=== PATIENT | female | born 1995 | race Caucasian/White ===

== ENCOUNTER 2018-05-13 19:54 | Emergency (ER) | payer MEDICAID, SELFPAY ==
[2018-05-13 20:00] VITALS: BP 114/71; PULSE 91; RESP 16; TEMP 36.8; O2SAT 99
--- NOTE | 2018-05-13 20:20 | ED.GENADUL_ITS ---
Disposition Clinical Impression: Sore throat Disposition: HOME Condition: Good Instructions: Pharyngitis (ED) Additional Instructions: follow up with your primary care provider this week if you are not improving if you have inability to swallow liquids, difficulty breathing or severe worsening of pain return to the emergency department Medical Decision Making - Lab Data POC Strep Test-SEGUNDO(Rapid) Start: 05/13/18 20: 05 Freq: .Rapid Strep Test Status: Active Document 05/13/18 20:11 BS (Rec: 05/13/18 20:11 BS [email or web address]) Strep test-SEGUNDO(Rapid)-POC POC-Strep test-SEGUNDO (Rapid) Negative - Medical Decision Making pt here with sore throat and mild redness of left tonsil, suspect pharyngitis. Her strep test is negative so likely viral. Do not feel abx indicated at this time. 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 Advised f/u with pcp if not improving and return precautions given - Differential Diagnosis viral vs bacterial pharyngitis History of Present Illness - General Chief complaint: Sorethroat Stated complaint: SORE THROAT Time Seen by Provider: 05/13/18 20:09 Source: patient Mode of arrival: ambulatory Limitations: no limitations - History of Present Illness Initial comments: 22 yo female who is currently comes in with cc of sore throat. She states it started with sore throat yesterday and continued today so came here. She has a red left tonsil otherwise midline uvula, no pain over hyoid or restricted neck movements or changes in voice MD Complaint: sore throat Onset/Timin -: days(s) Consistency: other (worsening) Improves with: none Worsens with: none - Related Data Lfc503/FA/Omega3/Dha/Fish Oil [ Gummies] 1 tab PO DAILY 08/04/17 Ondansetron [Zofran] 8 mg PO Q8H PRN #12 tab 04/25/18 Allergies Allergy/AdvReac Type Severity Reaction Status Date / Time codeine AdvReac Intermediate very sick Unverified 05/13/18 20:06 Review of Systems Constitutional: denies: fever ENT: throat pain Respiratory: denies: shortness of breath Cardiovascular: denies: chest pain Comment: All other systems reviewed and negative Past Medical History - Past Medical History Medical history: no medical history uti Surgical history: no surgical history - Social History Alcohol use: none Drug use: none General Exam - General Limitations: no limitations General appearance: alert, in no apparent distress - Head Head exam: Present: atraumatic - Eye Eye exam: Present: normal apperance - ENT ENT exam: Present: mucous membranes moist, other (see hpi) - Neck Neck exam: Present: normal inspection, full ROM. Absent: meningismus - Respiratory Respiratory exam: Absent: respiratory distress - Cardiovascular Cardiovascular Exam: Present: regular rate - Neurological Exam Neurological exam: Present: alert, oriented X3, normal gait - Psychiatric Psychiatric exam: Present: normal affect - Skin Skin exam: Present: warm Course Vital Signs - 24 hr 08/05/18 20:00 Temperature 98.2 F Pulse 91 H Respiratory 16 Rate Blood Pressure 114/71 Pulse Oximetry 99
[2018-05-13 21:04] VITALS: BP 114/71; PULSE 91; RESP 16; TEMP 36.8; O2SAT 99
== END 2018-05-13 20:40 | disposition home or self-care (01) ==
PROVIDERS: Emergency Provider Emergency Medicine; PCP Family Medicine
DX: J02.9 Acute pharyngitis, unspecified (principal); Z33.1 Pregnant state, incidental; Z3A.00 Weeks of gestation of pregnancy not specified
CPT/HCPCS: 87880; 99282

== ENCOUNTER → 2018-05-25 16:49 | Outpatient (REF) | payer MEDICAID, SELFPAY | LOC: LBN 16:49 | PROVIDERS: PCP Family Medicine; Visit Provider Advanced Practice Midwife | DX: N76.0 Acute vaginitis (principal) | CPT/HCPCS: 87480; 87510; 87660 ==

== ENCOUNTER 2018-06-20 15:42 | Observation (INO) | payer MEDICAID, SELFPAY ==
[2018-06-20 16:05] VITALS: BP 119/74; PULSE 120; RESP 20; TEMP 37.1; O2SAT 99
[2018-06-20] MEDS: Normal Saline 1,000 ML 1000 ML IV (17:00)
[2018-06-20 17:12] LABS: Abs Immature Grans 0.06 k/cumm (0.0-0.09); Absolute Eosinophil Count 0.06 k/cumm (0.0-0.7); Absolute Lymphocyte Count 1.79 k/cumm (1.2-3.4); Basophils % 0.1; Eosinophils % 0.3; HCT 36.2 % (36.0-46.0); HGB 12.3 g/dL (12.0-15.5); Immature Grans % 0.3; Lymphocytes % 8.6; Mean Corpuscular Volume 82.5 fL (80-95); Mean Platelet Volume 9.2 fL (8.0-11.0); Monocytes % 8.8; Neutrophils % 81.9; Platelet Count 348 x1000/uL (130-400); RBC 4.39 m/cumm (4.00-5.20); RBC Distribution Width 14.3 % (11.7-14.6); White Blood Cell Count 20.81 k/cumm (4.4-10.8)
[2018-06-20 17:24] LABS: Absolute Basophil Count 0.02 k/cumm (0.0-0.2); Absolute Monocyte Count 1.83 k/cumm (0.11-0.7); Absolute Neutrophil Count 17.04 k/cumm (1.2-6.7)
[2018-06-20 17:26] LABS: ALT 19 U/L (12-78); AST 15 U/L (15-37); Albumin 2.8 g/dL (3.4-5.0); Alkaline Phosphatase 94 U/L (46-116); BUN 5 mg/dL (7-18); Bilirubin, Total 0.3 mg/dL (0.2-1.0); CREATININE 0.47 mg/dL (0.55-1.02); Calcium 8.3 mg/dL (8.5-10.1); Chloride 101 mmol/L (98-107); Glucose 75 mg/dL (70-100); Potassium 3.6 mmol/L (3.5-5.1); Sodium 134 mmol/L (136-145); Total Protein 7.6 g/dL (6.4-8.2)
[2018-06-20 17:36] LABS: Diff Comment Manual Differential
[2018-06-20 17:45] LABS: Bilirubin Negative (Negative); Blood Negative (Negative); Clarity Sl Cloudy; Glucose Negative (Negative); Ketones 40 mg/dL (Negative); Leukocyte Esterase Negative (Negative); Nitrite Negative (Negative); Specific Gravity 1.015 (1.005-1.025); Urobilinogen 0.2 EU/dL (Up TO 0.2)
[2018-06-20 18:05] VITALS: BP 160/90; PULSE 104; RESP 18; TEMP 37.2; O2SAT 98
[2018-06-20] MEDS: Normal Saline 1,000 ML 150 ML IV (18:55)
--- NOTE | 2018-06-20 19:20 | DI.US_ITS ---
Many abnormalities cannot be diagnosed. A normal exam does not exclude a congenital anomaly. Radiology No. LMP: Exam Date: 06/20/18 [facility] wks days on EDC ([facility]) 12/05/18 Confirmed: HISTORY: NO HEART RATE ---- PREDICTED GESTATIONAL AGE NUMBER 16 weeks with a range of 15 week to 17 weeks. 1 Determined by___1STUS___LMP___HISTORY Info. pertaining to fetus # PLACENTA PRESENTATION Grade 0-1 Cephalic___ Anterior___Posterior_X__ Breech____ Right Left Transverse(head right___ Fundal___Low-lying___Previa___ Transverse(head left___ Varying BIOMETRY AMNIOTIC FLUID BPD: 31 mm 15.5 weeks Normal HC: 121 mm 16 weeks AC: 96 mm 15.5 weeks FL: 20 mm 16 weeks AMNIOTIC FLUID INDEX >26 WK CRL: mm weeks Cisterna Magna: mm CI: 82 RUQ: LUQ Cerebellum: cm EFW: 138 grams 33RD Percentile RLQ: LLQ Total: cms Composite AGE= 15.6 wks EDC by US____12/06/18 BIOPHYSICAL PROFILE ANATOMY IDENTIFIED SCORE 0/2 Heart: 4-Chamber___Rate:BPM_160___ LVOT: RVOT: Amniotic Fluid(>2cms)____ Stomach: Kidneys: Respirations (>30 secs) Bladder: Post. Fossa: Body Flex/Extension 3 vessel cord: Ventricles: cord insertion: Lips:____ Extremity Flex/Extension spinal morphology: Nose: Total Score= Palate: NS=not seen Routine examination was performed. There is a single living intrauterine gestation. Estimated sonographic age is 15 weeks 6 days. heart rate is 160 beats per minute. Estimated weight is 138 grams. The amniotic fluid is within normal limits. The placenta is posterior. The cervix appears closed. The left ovary was visualized and is unremarkable. The right ovary was not seen sonographically. IMPRESSION: Single living intrauterine gestation. Estimated sonographic age is 15 weeks 6 days.
--- NOTE | 2018-06-20 19:21 | DI.RAD_ITS ---
SYMPTOM/DIAGNOSIS: COUGH, SOB, CHEST PAIN FRONTAL AND LATERAL CHEST: No priors for comparison. Heart size and pulmonary vasculature are within normal limits. There is a small infiltrate in the right lung base laterally. The lungs are otherwise clear. No effusions or pneumothoraces are identified. The bones are intact. IMPRESSION: Right basilar infiltrate. This may represent atelectasis or pneumonia.
[2018-06-20 19:54] VITALS: BP 116/68; PULSE 125; RESP 20; TEMP 37.2; O2SAT 98
--- NOTE | 2018-06-20 20:03 | DI.VRAD_ITS ---
EXAM: XR Chest, 2 Views CLINICAL HISTORY: 22 years old, female; Signs and symptoms; Cough; Prior surgery TECHNIQUE: Frontal and lateral views of the chest. COMPARISON: No relevant prior studies available. FINDINGS: Lungs: A patchy opacity is seen in the right lung base. Pleural space: No focal pathology. No pneumothorax. Heart: No focal pathology. No cardiomegaly. Mediastinum: Unremarkable. Bones/joints: Unremarkable. IMPRESSION: A patchy opacity is seen in the right lung base. Consider developing pneumonia. Dictated and Authenticated by: Scarlett Clemente MD. Ordering:CASPER RAMIREZ MD
--- NOTE | 2018-06-20 20:16 | DI.VRAD_ITS ---
EXAM: US Uterus, Limited CLINICAL HISTORY: 22 years old, female; Signs and symptoms; Lmp or gestational age (in weeks): 16w,0d with dick of 12/05/18; Other: No fht heard by physician; TECHNIQUE: Real-time ultrasound of the maternal uterus (limited) with image documentation. COMPARISON: OB US 1ST TRIMESTER TRANSABD*P 08/04/2017 3:50 PM FINDINGS: Fetus: Live intrauterine gestation in variable lie. Gestational age: Estimated gestational age based on today's measurements is 15 weeks, 6 days. Biometry is symmetric. EFW: Estimated weight is 138 g. Heart rate: heart rate is 160 beats per minute. Placenta: Predominantly posterior placenta. Cervix: The cervix is closed. Adnexa: Normal morphology the left ovary. The right ovary was not seen. IMPRESSION: 1. Live intrauterine gestation in variable lie. 2. Estimated gestational age based on today's measurements is 15 weeks, 6 days. No relevant prior studies are available to compare for adequacy of growth. Dictated and Authenticated by: Scarlett Clemente MD. Ordering:CASPER RAMIREZ MD
--- NOTE | 2018-06-20 20:37 | W.ED.GENAD ---
Discharge Plan Disposition Patient Disposition: [facility]PATIENT Condition: Serious Discharge Details Chief Complaint: RespSymp Clinical Impression: Community acquired pneumonia Reason For Visit: UNKNOWN Primary Care Provider: Yadira Churchill ED Provider: Shelbie Blackwell Home Meds and New Rx's Prescriptions: No Action PNV 820-ovfux-abryo-3-fish oil [ with DHA-Folic Acid] 1 EACH tablet,chewable 1 tab PO DAILY RF: 0 Medical Decision Making MDM Narrative Medical decision making narrative: Patient presents with 1 month symptoms she is tachycardic with a heart rate of 120. Will establish IV provide IV fluids check CBC and comprehensive metabolic panel. CBC is elevated just above 20, lung sounds are clear I did discuss concern for pneumonia versus pulmonary embolism, we discussed risks of radiation exposure patient did agree to chest x-ray with shield. We were unable to obtain a heart rate so a ultrasound was obtained which does show live intrauterine gestation in variable lie estimated gestational age is 15 weeks 6 days heart rate is 160 beats. ddimer added. chest xray shows right lower lobe pneumonia. blood cultures add. patient still remains tachycardiac after 2 liters of IV fluid. case discussed with Dr Bolaños who accepts patient for inpatient treatment of community acquired pneumonia. ceftriaxone initiated. Imaging Data Radiologic Study: Imaging: X-Ray (Chest x-ray) Radiologist's impression: Patchy opacity in the right lung base Radiologic Study #2: Imaging: Ultrasound (Ultrasound uterus limited) Radiologist's impression: Live intrauterine gestation in variable lie heart rate 160 bpm Estimated gestational age is 15 weeks 6 days Lab Data Lab Results 06/20/18 06/20/18 06/20/18 Range/Units 16:55 16:55 17:35 WBC 20.81 H (4.4-10.8) k/cumm RBC 4.39 (4.00-5.20) m/cumm Hgb 12.3 (12.0-15.5) g/dL Hct 36.2 (36.0-46.0) % MCV 82.5 (80-95) fL MCH 28.0 (27.0-33.0) pg MCHC 34.0 (32.0-36.0) g/dL RDW 14.3 (11.7-14.6) % Plt Count 348 (130-400) x1000/uL MPV 9.2 (8.0-11.0) fL Immature Gran % 0.3 Neutrophils % 81.9 Lymphocytes % 8.6 Monocytes % 8.8 Eosinophils % 0.3 Basophils % 0.1 Absolute Neutrophils 17.04 H (1.2-6.7) k/cumm Absolute Lymphocytes 1.79 (1.2-3.4) k/cumm Absolute Monocytes 1.83 H (0.11-0.7) k/cumm Absolute Eosinophils 0.06 (0.0-0.7) k/cumm Absolute Basophils 0.02 (0.0-0.2) k/cumm Differential Comment Manual differential Sodium 134 L (136-145) mmol/L Potassium 3.6 (3.5-5.1) mmol/L Chloride 101 (98-107) mmol/L Carbon Dioxide 23.0 (21.0-32.0) mmol/L Anion Gap 10.0 (3-11) mmol/L BUN 5 L (7-18) mg/dL Creatinine 0.47 L (0.55-1.02) mg/dL Estimated GFR/1.73 m2 >= 60.00 (mL/min/1.73m2) Glucose 75 (70-100) mg/dL Calcium 8.3 L (8.5-10.1) mg/dL Total Bilirubin 0.3 (0.2-1.0) mg/dL AST 15 (15-37) U/L ALT 19 (12-78) U/L Alkaline Phosphatase 94 (46-116) U/L Total Protein 7.6 (6.4-8.2) g/dL Albumin 2.8 L (3.4-5.0) g/dL Urine Color Yellow (Yellow) Urine Clarity Sl cloudy Urine pH 6.0 (5-8) Ur Specific [place] 1.015 (1.005-1.025) Urine Protein Negative (Negative) mg/dL Urine Ketones 40 H (Negative) mg/dL Urine Blood Negative (Negative) Urine Nitrite Negative (Negative) Urine Bilirubin Negative (Negative) Urine Urobilinogen 0.2 (Up TO 0.2) EU/dL Ur Leukocyte Esterase Negative (Negative) Urine Glucose Negative (Negative) mg/dL HPI - General Adult General Mode of arrival: ambulatory. Date/Time Provider Initiated Documentation: 06/20/18 16:11. Limitations to Documentation: no limitations. Information obtained by: patient and RN notes reviewed. History of Present Illness described as moderate, Quality is described as dull, and is localized to the chest. Patient reports no radiation. Patient started experiencing this month(s) (1 month) and it has been intermittent. No relieving factors improve symptom(s), No exacerbating factors reported . Patient notes chest pain, cough, headaches, malaise, shortness of breath and weakness. Patient did receive the following treatments prior to arrival, none HPI Narrative: Patient presents with respiratory complaints starting approximately 1 month ago, including cough shortness of breath and pleuritic chest pain. She states that she has been eating and drinking bowels and bladder functioning. She is 6 weeks gestation and is followed by [facility]. She has had no fevers. She did see her primary care provider and was evaluated in the emergency department at [facility] where she was diagnosed with bronchitis. She was offered prednisone which she declined. She states her symptoms are ongoing and that she now has fatigue and malaise. She is a non-smoker and has had no similar history. She does state that she has had pneumonia in the past as a child Related Data Home Medications Medication Instructions Recorded Confirmed PNV 913-[id number]-rheix-3-fish oil 1 tab PO DAILY 08/04/17 06/20/18 [ with DHA-Folic Acid] Allergies Allergy/AdvReac Type Severity Reaction Status Date / Time codeine AdvReac Intermediate very sick Unverified 06/20/18 16:10 General Stated Complaint: RespSymp SELVIN: 4 Review of Systems Constitutional Reports fatigue, Denies fever(s), Reports headache(s) and Reports malaise Eyes Patient Denies change in vision and denies ENT Denies dizziness, Denies dry mouth and Reports headache(s) Cardiovascular Reports chest pain, Denies syncope, Reports rapid heart rate and Reports dyspnea Respiratory Reports chest congestion, Reports cough, Reports pain with cough, Reports dyspnea and Denies wheezing Gastrointestinal Denies abdominal pain, Denies nausea and Denies vomiting Genitourinary Denies abnormal vaginal bleeding Musculoskeletal Denies abnormal gait and Denies back pain Neurologic Denies abnormal gait, Denies dizziness, Denies syncope and Reports headache(s) Endocrine Reports fatigue Allergic/Immunologic Denies wheezing PFSH Family History Grandmother Breast cancer Medical History H/O dilation and curettage (Acute) Miscarriage (Acute) ulcer Social History Smoking/Tobacco Use Status: Former Tobacco Use alcohol intake: current substance use type: marijuana 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 Exam Const General: cooperative and ill appearing Nutritional Appearance: average body habitus Orientation: alert, awake and oriented x3 HENMT Mouth: moist mucous membranes abnormal Chest Chest: normal inspection of the chest Resp Effort & Inspection: normal respiratory effort and able to speak in complete sentences Auscultation: clear to auscultation bilaterally, no crackles, no rhonchi and no wheezes Cardio Rate: tachycardic Rhythm: regular rhythm GI Inspection: normal to inspection Palpation: soft Auscultation: normal bowel sounds Skin General skin exam: pallor Neuro General: alert, awake and oriented x3 Speech: speech normal Gait: normal gait Motor: strength 5/5 throughout Extrem General: normal to inspection, full ROM and normal capillary refill Course Vital Signs Temperature 37.1 C 06/20/18 16:05 Pulse 120 H 06/20/18 16:05 Respiratory Rate 20 06/20/18 16:05 Blood Pressure 119/74 06/20/18 16:05 Pulse Oximetry 99 06/20/18 16:05 Temperature 37.2 C 06/20/18 19:54 Pulse 125 H 06/20/18 19:54 Respiratory Rate 20 06/20/18 19:54 Blood Pressure 116/68 06/20/18 19:54 Pulse Oximetry 98 06/20/18 19:54 Lab/Test Results Lab/Test Results: Laboratory Tests 06/20/18 06/20/18 06/20/18 16:55 16:55 17:35 WBC 20.81 H RBC 4.39 Hgb 12.3 Hct 36.2 MCV 82.5 MCH 28.0 MCHC 34.0 RDW 14.3 Plt Count 348 MPV 9.2 Immature Gran % 0.3 Neutrophils % 81.9 Lymphocytes % 8.6 Monocytes % 8.8 Eosinophils % 0.3 Basophils % 0.1 Absolute Neutrophils 17.04 H Absolute Lymphocytes 1.79 Absolute Monocytes 1.83 H Absolute Eosinophils 0.06 Absolute Basophils 0.02 Differential Comment Manual differential Sodium 134 L Potassium 3.6 Chloride 101 Carbon Dioxide 23.0 Anion Gap 10.0 BUN 5 L Creatinine 0.47 L Estimated GFR/1.73 m2 >= 60.00 Glucose 75 Calcium 8.3 L Total Bilirubin 0.3 AST 15 ALT 19 Alkaline Phosphatase 94 Total Protein 7.6 Albumin 2.8 L Urine Color Yellow Urine Clarity Sl cloudy Urine pH 6.0 Ur Specific [place] 1.015 Urine Protein Negative Urine Ketones 40 H Urine Blood Negative Urine Nitrite Negative Urine Bilirubin Negative Urine Urobilinogen 0.2 Ur Leukocyte Esterase Negative Urine Glucose Negative
[2018-06-20 20:48] LABS: D-Dimer 373 ng/mlFEU (<500)
--- NOTE | 2018-06-20 20:49 | ED.GENADUL_ITS ---
Discharge Plan Disposition Patient Disposition: [facility]PAT[facility] Condition: Serious Discharge Details Chief Complaint: RespSymp Clinical Impression: Community acquired pneumonia Reason For Visit: UNKNOWN Primary Care Provider: Yadira Churchill ED Provider: Shelbie Blackwell Home Meds and New Rx's Prescriptions: No Action PNV 678-gqufg-wrhyo-3-fish oil [ with DHA-Folic Acid] 1 EACH tablet, chewable 1 tab PO DAILY RF: 0 Medical Decision Making MDM Narrative Medical decision making narrative: Patient presents with 1 month symptoms she is tachycardic with a heart rate of 120. Will establish IV provide IV fluids check CBC and comprehensive metabolic panel. CBC is elevated just above 20, lung sounds are clear I did discuss concern for pneumonia versus pulmonary embolism, we discussed risks of radiation exposure patient did agree to chest x-ray with shield. We were unable to obtain a heart rate so a ultrasound was obtained which does show live intrauterine gestation in variable lie estimated gestational age is 15 weeks 6 days heart rate is 160 beats. ddimer added. chest xray shows right lower lobe pneumonia. blood cultures add. patient still remains tachycardiac after 2 liters of IV fluid. case discussed with Dr Bolaños who accepts patient for inpatient treatment of community acquired pneumonia. ceftriaxone initiated. Imaging Data Radiologic Study: Imaging: X-Ray (Chest x-ray) Radiologist's impression: Patchy opacity in the right lung base Radiologic Study #2: Imaging: Ultrasound (Ultrasound uterus limited) Radiologist's impression: Live intrauterine gestation in variable lie heart rate 160 bpm Estimated gestational age is 15 weeks 6 days Lab Data Lab Results 06/20/18 06/20/18 06/20/18 Range/Units 16:55 16:55 17:35 WBC 20.81 H (4.4-10.8) k/cumm RBC 4.39 (4.00-5.20) m/cumm Hgb 12.3 (12.0-15.5) g/dL Hct 36.2 (36.0-46.0) % MCV 82.5 (80-95) fL MCH 28.0 (27.0-33.0) pg MCHC 34.0 (32.0-36.0) g/dL RDW 14.3 (11.7-14.6) % Plt Count 348 (130-400) x1000/uL MPV 9.2 (8.0-11.0) fL Immature Gran % 0.3 Neutrophils % 81.9 Lymphocytes % 8.6 Monocytes % 8.8 Eosinophils % 0.3 Basophils % 0.1 Absolute Neutrophils 17.04 H (1.2-6.7) k/cumm Absolute Lymphocytes 1.79 (1.2-3.4) k/cumm Absolute Monocytes 1.83 H (0.11-0.7) k/cumm Absolute Eosinophils 0.06 (0.0-0.7) k/cumm Absolute Basophils 0.02 (0.0-0.2) k/cumm Differential Comment Manual differential Sodium 134 L (136-145) mmol/L Potassium 3.6 (3.5-5.1) mmol/L Chloride 101 (98-107) mmol/L Carbon Dioxide 23.0 (21.0-32.0) mmol/L Anion Gap 10.0 (3-11) mmol/L BUN 5 L (7-18) mg/dL Creatinine 0.47 L (0.55-1.02) mg/dL Estimated GFR/1.73 m2 >= 60.00 (mL/min/1.73m2) Glucose 75 (70-100) mg/dL Calcium 8.3 L (8.5-10.1) mg/dL Total Bilirubin 0.3 (0.2-1.0) mg/dL AST 15 (15-37) U/L ALT 19 (12-78) U/L Alkaline Phosphatase 94 (46-116) U/L Total Protein 7.6 (6.4-8.2) g/dL Albumin 2.8 L (3.4-5.0) g/dL Urine Color Yellow (Yellow) Urine Clarity Sl cloudy Urine pH 6.0 (5-8) Ur Specific [place] 1.015 (1.005-1.025) Urine Protein Negative (Negative) mg/dL Urine Ketones 40 H (Negative) mg/dL Urine Blood Negative (Negative) Urine Nitrite Negative (Negative) Urine Bilirubin Negative (Negative) Urine Urobilinogen 0.2 (Up TO 0.2) EU/dL Ur Leukocyte Esterase Negative (Negative) Urine Glucose Negative (Negative) mg/dL HPI - General Adult General Mode of arrival: ambulatory . Date/Time Provider Initiated Documentation: 06/20/18 16:11 . Limitations to Documentation: no limitations . Information obtained by: patient and RN notes reviewed . History of Present Illness described as moderate, Quality is described as dull, and is localized to the chest. Patient reports no radiation. Patient started experiencing this month(s) (1 month) and it has been intermittent. No relieving factors improve symptom(s), No exacerbating factors reported . Patient notes chest pain, cough, headaches, malaise, shortness of breath and weakness. Patient did receive the following treatments prior to arrival, none HPI Narrative: Patient presents with respiratory complaints starting approximately 1 month ago, including cough shortness of breath and pleuritic chest pain. She states that she has been eating and drinking bowels and bladder functioning. She is 6 weeks gestation and is followed by [facility]. She has had no fevers. She did see her primary care provider and was evaluated in the emergency department at [facility] where she was diagnosed with bronchitis. She was offered prednisone which she declined. She states her symptoms are ongoing and that she now has fatigue and malaise. She is a non-smoker and has had no similar history. She does state that she has had pneumonia in the past as a child Related Data Home Medications Medication Instructions Recorded Confirmed PNV 958-suxuo-sbshe-3-fish oil 1 tab PO DAILY 08/04/17 06/20/18 [ with DHA-Folic Acid] Allergies Allergy/AdvReac Type Severity Reaction Status Date / Time codeine AdvReac Intermediate very sick Unverified 06/20/18 16:10 General Stated Complaint: RespSymp SELVIN: 4 Review of Systems Constitutional Reports fatigue, Denies fever(s), Reports headache(s) and Reports malaise Eyes Patient Denies change in vision and denies ENT Denies dizziness, Denies dry mouth and Reports headache(s) Cardiovascular Reports chest pain, Denies syncope, Reports rapid heart rate and Reports dyspnea Respiratory Reports chest congestion, Reports cough, Reports pain with cough, Reports dyspnea and Denies wheezing Gastrointestinal Denies abdominal pain, Denies nausea and Denies vomiting Genitourinary Denies abnormal vaginal bleeding Musculoskeletal Denies abnormal gait and Denies back pain Neurologic Denies abnormal gait, Denies dizziness, Denies syncope and Reports headache(s) Endocrine Reports fatigue Allergic/Immunologic Denies wheezing PFSH Family History Grandmother Breast cancer Medical History H/O dilation and curettage (Acute) Miscarriage (Acute) ulcer Social History Smoking/Tobacco Use Status: Former Tobacco Use alcohol intake: current substance use type: marijuana 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 Exam Const General: cooperative and ill appearing Nutritional Appearance: average body habitus Orientation: alert, awake and oriented x3 HENMT Mouth: moist mucous membranes abnormal Chest Chest: normal inspection of the chest Resp Effort & Inspection: normal respiratory effort and able to speak in complete sentences Auscultation: clear to auscultation bilaterally, no crackles, no rhonchi and no wheezes Cardio Rate: tachycardic Rhythm: regular rhythm GI Inspection: normal to inspection Palpation: soft Auscultation: normal bowel sounds Skin General skin exam: pallor Neuro General: alert, awake and oriented x3 Speech: speech normal Gait: normal gait Motor: strength 5/5 throughout Extrem General: normal to inspection, full ROM and normal capillary refill Course Vital Signs Temperature 37.1 C 06/20/18 16:05 Pulse 120 H 06/20/18 16:05 Respiratory Rate 20 06/20/18 16:05 Blood Pressure 119/74 06/20/18 16:05 Pulse Oximetry 99 06/20/18 16:05 Temperature 37.2 C 06/20/18 19:54 Pulse 125 H 06/20/18 19:54 Respiratory Rate 20 06/20/18 19:54 Blood Pressure 116/68 06/20/18 19:54 Pulse Oximetry 98 06/20/18 19:54 Lab/Test Results Lab/Test Results: Laboratory Tests 06/20/18 06/20/18 06/20/18 16:55 16:55 17:35 WBC 20.81 H RBC 4.39 Hgb 12.3 Hct 36.2 MCV 82.5 MCH 28.0 MCHC 34.0 RDW 14.3 Plt Count 348 MPV 9.2 Immature Gran % 0.3 Neutrophils % 81.9 Lymphocytes % 8.6 Monocytes % 8.8 Eosinophils % 0.3 Basophils % 0.1 Absolute Neutrophils 17.04 H Absolute Lymphocytes 1.79 Absolute Monocytes 1.83 H Absolute Eosinophils 0.06 Absolute Basophils 0.02 Differential Comment Manual differential Sodium 134 L Potassium 3.6 Chloride 101 Carbon Dioxide 23.0 Anion Gap 10.0 BUN 5 L Creatinine 0.47 L Estimated GFR/1.73 m2 >= 60.00 Glucose 75 Calcium 8.3 L Total Bilirubin 0.3 AST 15 ALT 19 Alkaline Phosphatase 94 Total Protein 7.6 Albumin 2.8 L Urine Color Yellow Urine Clarity Sl cloudy Urine pH 6.0 Ur Specific [place] 1.015 Urine Protein Negative Urine Ketones 40 H Urine Blood Negative Urine Nitrite Negative Urine Bilirubin Negative Urine Urobilinogen 0.2 Ur Leukocyte Esterase Negative Urine Glucose Negative
[2018-06-20] MEDS: Azithromycin 250 MG TAB 500 MG PO (21:20)
--- NOTE | 2018-06-20 21:26 | HPE_ITS ---
Date of service: 06/20/18 Time of Service: 21:25 Assessment and Plan (1) Community acquired pneumonia: Start date: 06/20/18 Start time: 22:04 Current visit: Yes Status: Acute 1. Admit to [facility] service observation status. 2. Begin antibiotic treatment for community-acquired pneumonia Rocephin 1 g IV every 24 hours with 1 dose of azithromycin 500 mg orally. 3. Follow temperature heart rate, oxygen saturation during the night. 4. Recheck CBC in a.m., History of Present Illness Chief Complaint: Cough, worsening shortness of breath, 16w EGA. Patient is a 22-year-old female currently 16 and16-0/7 weeks estimated gestational age with an MERLENE D of 12/05/2020 who presented to the emergency room this evening feeling feverish with shortness of breath. She reports that she began feeling poorly approximately a month ago and was evaluated in the [facility] approximately 3 weeks ago and by her PCP 2 weeks ago. She was under the impression that she had bronchitis that was not resolving. On presentation to the [facility] emergency room she underwent lab studies showing elevated WBC, chest x-ray suggesting a right lower lobe pneumonia and a negative d-dimer. Decision was made to admit her for i.v. and oral antibiotics and observation. Review of Systems Constitutional Reports difficulty sleeping (Secondary to coughing) and Reports fever(s) (Feels hot but has not had a temperature) ENT Reports nasal congestion (Approximately 2 weeks ago) Cardiovascular Reports rapid heart rate Respiratory Reports chest congestion and Reports cough Gastrointestinal Reports system reviewed and no additional complaints, except as docu Genitourinary Comments: [facility] She is currently under the care of the midwifery service. No issues with this current . Neurologic Reports other Comments: No headaches or visual changes Psychiatric Comments: No mood issues. She reports good relationship with her partner. This is for his first child. [facility] Family History Grandmother Breast cancer Medical History H/O dilation and curettage (Acute) Miscarriage (Acute) ulcer Social History Smoking/Tobacco Use Status: Former Tobacco Use alcohol intake: current substance use type: marijuana cori/congregation: Roman Catholic Meds Home Medications Medication Instructions Recorded Confirmed Type PNV [id number] oil 1 tab PO DAILY 08/04/17 06/20/18 History [ with DHA-Folic Acid] Allergies Allergy/AdvReac Type Severity Reaction Status Date / Time codeine AdvReac Intermediate very sick Unverified 06/20/18 16:10 Exam Const General: cooperative, healthy appearing and no acute distress Nutritional Appearance: average body habitus and well nourished Orientation: alert, awake and oriented x3 HENMT Head: normal to inspection General nose exam: nares normal Mouth: oral mucosae normal Chest Chest: normal palpation of entire chest wall Breast inspection: normal inspection of the breasts Resp Effort & Inspection: normal respiratory effort and cough Auscultation: diminished lung sounds Percussion: percussion normal Cardio Jugular venous pressure: no JVD Palpation: normal PMI Rate: tachycardic Rhythm: regular rhythm Heart Sounds: S1 normal and S2 normal GI Inspection: normal to inspection Palpation: soft and no hepatosplenomegaly Other: Fundal height palpated 3 cm below the umbilicus no focal uterine tenderness. heart tones are dictated by [place] within normal range. OB/External & Speculum: deferred Skin General skin exam: no rashes or lesions noted Hair: normal Nails: normal Neuro General: alert, awake and oriented x3 Cognition: normal cognition Speech: speech normal Extrem General: normal to inspection, full ROM and normal capillary refill Results Imaging Chest x-ray: report reviewed and image reviewed Labs : 06/20/18 16:55 06/20/18 16:55 Laboratory Results - last 24 hr 06/20/18 06/20/18 06/20/18 16:55 16:55 17:35 WBC 20.81 H RBC 4.39 Hgb 12.3 Hct 36.2 MCV 82.5 MCH 28.0 MCHC 34.0 RDW 14.3 Plt Count 348 MPV 9.2 Immature Gran % 0.3 Neutrophils % 81.9 Lymphocytes % 8.6 Monocytes % 8.8 Eosinophils % 0.3 Basophils % 0.1 Absolute Neutrophils 17.04 H Absolute Lymphocytes 1.79 Absolute Monocytes 1.83 H Absolute Eosinophils 0.06 Absolute Basophils 0.02 Differential Comment Manual differential D-Dimer Sodium 134 L Potassium 3.6 Chloride 101 Carbon Dioxide 23.0 Anion Gap 10.0 BUN 5 L Creatinine 0.47 L Estimated GFR/1.73 m2 >= 60.00 Glucose 75 Calcium 8.3 L Total Bilirubin 0.3 AST 15 ALT 19 Alkaline Phosphatase 94 Total Protein 7.6 Albumin 2.8 L Urine Color Yellow Urine Clarity Sl cloudy Urine pH 6.0 Ur Specific [place] 1.015 Urine Protein Negative Urine Ketones 40 H Urine Blood Negative Urine Nitrite Negative Urine Bilirubin Negative Urine Urobilinogen 0.2 Ur Leukocyte Esterase Negative Urine Glucose Negative 06/20/18 20:14 WBC RBC Hgb Hct MCV MCH MCHC RDW Plt Count MPV Immature Gran % Neutrophils % Lymphocytes % Monocytes % Eosinophils % Basophils % Absolute Neutrophils Absolute Lymphocytes Absolute Monocytes Absolute Eosinophils Absolute Basophils Differential Comment D-Dimer 373 Sodium Potassium Chloride Carbon Dioxide Anion Gap BUN Creatinine Estimated GFR/1.73 m2 Glucose Calcium Total Bilirubin AST ALT Alkaline Phosphatase Total Protein Albumin Urine Color Urine Clarity Urine pH Ur Specific [place] Urine Protein Urine Ketones Urine Blood Urine Nitrite Urine Bilirubin Urine Urobilinogen Ur Leukocyte Esterase Urine Glucose
[2018-06-20] MEDS: Lactated Ringers 1,000 ML 125 ML IV (21:35)
[2018-06-20 22:48] VITALS: BP 88/51; PULSE 121; RESP 20; TEMP 37.6; O2SAT 96
[2018-06-20 22:57] VITALS: BP 108/58
[2018-06-20 23:00] VITALS: BP 97/58; PULSE 116; RESP 20; TEMP 37.1; O2SAT 98
[2018-06-21] MEDS: Lactated Ringers 1,000 ML 125 ML IV ×3 (05:11→23:10)
[2018-06-21 07:06] LABS: HCT 34.1 % (36.0-46.0); HGB 11.2 g/dL (12.0-15.5); Mean Corp. HGB Concentration 32.8 g/dL (32.0-36.0); Mean Corpuscular Hemoglobin 27.9 pg (27.0-33.0); Mean Corpuscular Volume 84.8 fL (80-95); Mean Platelet Volume 9.2 fL (8.0-11.0); Platelet Count 342 x1000/uL (130-400); RBC 4.02 m/cumm (4.00-5.20); RBC Distribution Width 14.4 % (11.7-14.6); White Blood Cell Count 14.98 k/cumm (4.4-10.8)
[2018-06-21 08:06] VITALS: BP 103/69; PULSE 112; RESP 16; TEMP 36.5; O2SAT 96
[2018-06-21] MEDS: Dextromethorphan 6 MG/ML Suspension 60 MG PO (09:12)
[2018-06-21] MEDS: Azithromycin 250 MG TAB PO (09:42)
[2018-06-21] MEDS: Acetaminophen 325 MG TAB 650 MG PO (09:42)
[2018-06-21] MEDS: Normal Saline Flush 10 ML SYR IVP (10:03)
--- NOTE | 2018-06-21 10:30 | PGE_ITS ---
Date of service: 06/21/18 Time of Service: 10:26 Assessment and Plan (1) Normal in multigravida in first trimester: Current visit: Yes Status: Resolved (2) Positive test: Current visit: Yes Status: Resolved (3) care, subsequent in second trimester: Current visit: Yes Status: Acute (4) Encounter for supervision of other normal , unspecified trimester: Current visit: Yes Status: Acute (5) Community acquired pneumonia: Start date: 06/20/18 Start time: 10:39 Current visit: Yes Status: Acute Cough persists. VSS. Plan hospitalist consult for assist with management. Cough suppression. Continue Rocephin. Subjective Patient reports: nausea and other (Headache this morning. Coughing makes her nauseated. Keeps her awake.) Interval history since last seen: Received Rocehphin and Azithromycin dose on admission. Afebrile during night. Tachycardia persists. O2 sat 98%. Cough persists. Exam Const General: cooperative, healthy appearing and other (coughing during exam.) Nutritional Appearance: average body habitus Orientation: alert, awake and oriented x3 Resp Effort & Inspection: normal respiratory effort and able to speak in complete sentences Auscultation: diminished lung sounds Percussion: percussion normal Cardio Rate: regular rate Rhythm: regular rhythm Objective Objective Clinical Data: Abnormal lab results 06/20/18 06/20/18 06/20/18 Range/Units 16:55 16:55 17:35 WBC 20.81 H (4.4-10.8) k/cumm Hgb (12.0-15.5) g/dL Hct (36.0-46.0) % Absolute Neutrophils 17.04 H (1.2-6.7) k/cumm Absolute Monocytes 1.83 H (0.11-0.7) k/cumm Sodium 134 L (136-145) mmol/L BUN 5 L (7-18) mg/dL Creatinine 0.47 L (0.55-1.02) mg/dL Calcium 8.3 L (8.5-10.1) mg/dL Albumin 2.8 L (3.4-5.0) g/dL Urine Ketones 40 H (Negative) mg/dL 06/21/18 Range/Units 06:20 WBC 14.98 H (4.4-10.8) k/cumm Hgb 11.2 L (12.0-15.5) g/dL Hct 34.1 L (36.0-46.0) % Absolute Neutrophils (1.2-6.7) k/cumm Absolute Monocytes (0.11-0.7) k/cumm Sodium (136-145) mmol/L BUN (7-18) mg/dL Creatinine (0.55-1.02) mg/dL Calcium (8.5-10.1) mg/dL Albumin (3.4-5.0) g/dL Urine Ketones (Negative) mg/dL Vital Signs Temp 97.7 F 06/21/18 08:06 Pulse 112 H 06/21/18 08:06 Resp 16 06/21/18 08:06 BP 103/69 06/21/18 08:06 Pulse Ox 96 06/21/18 08:06 Intake & Output 06/20/18 06/20/18 06/21/18 11:59 23:59 11:59 Intake Total 3795 / 3795 1550 / 1550 Balance 3795 / 3795 1550 / 1550 Weight 148 lb 0.011 oz Intake: IV 3795 / 3795 950 / 950 Oral 600 / 600 Other: Comment VOIDED INDEPENDENTLY IN TOILET Laboratory Results WBC 14.98 k/cumm (4.4-10.8) H 06/21/18 06:20 RBC 4.02 m/cumm (4.00-5.20) 06/21/18 06:20 Hgb 11.2 g/dL (12.0-15.5) L 06/21/18 06:20 Hct 34.1 % (36.0-46.0) L 06/21/18 06:20 MCV 84.8 fL (80-95) 06/21/18 06:20 MCH 27.9 pg (27.0-33.0) 06/21/18 06:20 MCHC 32.8 g/dL (32.0-36.0) 06/21/18 06:20 RDW 14.4 % (11.7-14.6) 06/21/18 06:20 Plt Count 342 x1000/uL (130-400) 06/21/18 06:20 MPV 9.2 fL (8.0-11.0) 06/21/18 06:20 Immature Gran % 0.3 06/20/18 16:55 Neutrophils % 81.9 06/20/18 16:55 Lymphocytes % 8.6 06/20/18 16:55 Monocytes % 8.8 06/20/18 16:55 Eosinophils % 0.3 06/20/18 16:55 Basophils % 0.1 06/20/18 16:55 Absolute Neutrophils 17.04 k/cumm (1.2-6.7) H 06/20/18 16:55 Absolute Lymphocytes 1.79 k/cumm (1.2-3.4) 06/20/18 16:55 Absolute Monocytes 1.83 k/cumm (0.11-0.7) H 06/20/18 16:55 Absolute Eosinophils 0.06 k/cumm (0.0-0.7) 06/20/18 16:55 Absolute Basophils 0.02 k/cumm (0.0-0.2) 06/20/18 16:55 Differential Comment Manual differential 06/20/18 16:55 D-Dimer 373 ng/mlFEU (<500) 06/20/18 20:14 Sodium 134 mmol/L (136-145) L 06/20/18 16:55 Potassium 3.6 mmol/L (3.5-5.1) 06/20/18 16:55 Chloride 101 mmol/L (98-107) 06/20/18 16:55 Carbon Dioxide 23.0 mmol/L (21.0-32.0) 06/20/18 16:55 Anion Gap 10.0 mmol/L (3-11) 06/20/18 16:55 BUN 5 mg/dL (7-18) L 06/20/18 16:55 Creatinine 0.47 mg/dL (0.55-1.02) L 06/20/18 16:55 Estimated GFR/1.73 m2 >= 60.00 (mL/min/1.73m2) 06/20/18 16:55 Glucose 75 mg/dL (70-100) 06/20/18 16:55 Calcium 8.3 mg/dL (8.5-10.1) L 06/20/18 16:55 Total Bilirubin 0.3 mg/dL (0.2-1.0) 06/20/18 16:55 AST 15 U/L (15-37) 06/20/18 16:55 ALT 19 U/L (12-78) 06/20/18 16:55 Alkaline Phosphatase 94 U/L (46-116) 06/20/18 16:55 Total Protein 7.6 g/dL (6.4-8.2) 06/20/18 16:55 Albumin 2.8 g/dL (3.4-5.0) L 06/20/18 16:55 Urine Color Yellow (Yellow) 06/20/18 17:35 Urine Clarity Sl cloudy 06/20/18 17:35 Urine pH 6.0 (5-8) 06/20/18 17:35 Ur Specific [place] 1.015 (1.005-1.025) 06/20/18 17:35 Urine Protein Negative mg/dL (Negative) 06/20/18 17:35 Urine Ketones 40 mg/dL (Negative) H 06/20/18 17:35 Urine Blood Negative (Negative) 06/20/18 17:35 Urine Nitrite Negative (Negative) 06/20/18 17:35 Urine Bilirubin Negative (Negative) 06/20/18 17:35 Urine Urobilinogen 0.2 EU/dL (Up TO 0.2) 06/20/18 17:35 Ur Leukocyte Esterase Negative (Negative) 06/20/18 17:35 Urine Glucose Negative mg/dL (Negative) 06/20/18 17:35 Progress Note: Quality AMI Clinical Trial Participant: No
--- NOTE | 2018-06-21 11:25 | PDOC.CMIN ---
- If Service Date Differs Date of service: 06/21/18 Time of Service: 11:25 Care Management Initial Assess REASON FOR HOSPITALIZATION:: Community aquired pneumonia PAST MEDICAL HISTORY/PAST SURGICAL HISTORY:: Ulcer, pneumonia PREVIOUS FUNCTIONAL STATUS/SOCIAL/FAMILY SUPPORTS:: Evita lives with her BRADLEY Devi in [place], [place]. She is and has a 3 year old daughter. 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 She is independent with ADL's and transportation. CURRENT FUNCTIONAL STATUS:: Evita is sitting up in bed she makes good eye contact. She reports that she has been receiving care and that she has a good support system at home. She has been sick for about a month and was diagnosed with bronchitits and then allergies. She is being treated today for pneumonia. ADVANCE DIRECTIVES:: None on file at [facility] Has patient been provided with information about the portal?: Yes Did the patient sign up for the portal?: No CODE STATUS:: Full Code INSURANCE COVERAGE / FINANCIAL ISSUES:: Medicaid CURRENT HOME/COMMUNITY SERVICES/EQUIPMENT:: OBGYN PRIMARY CARE PHYSICIAN:: POTENTIAL DISCHARGE NEEDS:: Follow up appointment with OBGYN ongoing care and as directed. PATIENT/FAMILY EDUCATION NEEDS:: Discharge education, limitations and follow up plan of care including ask me three and self management. ANTICIPATED BARRIERS TO DISCHARGE:: No identified barrirs at this time. TRANSPORTATION:: Via private car with BRADLEY at time of discharge. PLAN:: Evita is receiving IV antibiotics, there is a hospitalist consult to assist managing community aquired pneumonia. Evita will return home when medically ready per provider, anticipate no addtional needs. CM to continue to provide support to patient and care team ongoing discharge planning.
[2018-06-21 13:30] VITALS: BP 97/62; PULSE 96; RESP 18; TEMP 36.5; O2SAT 96
--- NOTE | 2018-06-21 13:53 | W.MEDCONSULT ---
Date of service: 06/21/18 Time of Service: 13:53 Assessment and Plan (1) Community acquired pneumonia: Current visit: No Status: Acute Community-acquired pneumonia. Unusual pathogens not suspected. Positive infiltrate in the right lower lobe. Should improve with parenteral antibiotics followed by oral antibiotics. Ceftriaxone/azithromycin. If doing well could transition to p.o. azithromycin tomorrow to complete a 5 day course. (2) Encounter for supervision of other normal , unspecified trimester: Current visit: No Status: Acute 16 weeks . viability reassuring per Dr. Holland. Continue present meds. History of Present Illness Chief Complaint: Right lower lobe pneumonia Narrative: This is a 22-year-old woman currently 16 weeks that presented with worsening cough and shortness of breath. She was admitted to the [facility] floor for parenteral antibiotics. We are asked by Dr. Holland from the [facility] service to evaluate her for any medical complications. Blood pressure is apparently been running a little low, her heart rate has been running around 100 bpm. Consults Consult date: 06/21/18 Requesting physician: Corazon Holland Review of Systems Review of Systems She has been sick for nearly 1 month. She was seen by her PCP and [facility] provider. Ultimately presented to the emergency room for further evaluation. Constitutional Denies anorexia, Reports body ache(s) and Reports difficulty sleeping Cardiovascular Denies chest pain Respiratory Reports chest congestion, Reports cough and Reports excessive phlegm production Gastrointestinal Denies abdominal pain and Denies change in bowel habits PFSH Family History Grandmother Breast cancer Medical History Community acquired pneumonia (Acute) Encounter for supervision of other normal , unspecified trimester (Acute) H/O dilation and curettage (Acute) Miscarriage (Acute) ulcer Social History Smoking/Tobacco Use Status: Former Tobacco Use alcohol intake: current substance use type: marijuana cori/orthodox: Gnosticism Exam Narrative Exam Narrative: Lying comfortably on the stretcher with her 3-year-old daughter next to her. She had a mild cough but no respiratory distress. Const General: cooperative, healthy appearing and no acute distress Nutritional Appearance: average body habitus Chest Chest: normal inspection of the chest Resp Effort & Inspection: normal respiratory effort Auscultation: crackles (Right base) and diminished lung sounds Cardio Rate: regular rate Rhythm: regular rhythm Heart Sounds: S1 normal, S2 normal and no murmurs GI Palpation: soft and nontender OB/External & Speculum: deferred (Gravid uterus nontender) Skin General skin exam: no rashes or lesions noted Results Labs : 06/21/18 06:20 06/20/18 16:55 Laboratory Results - last 24 hr 06/20/18 06/20/18 06/20/18 16:55 16:55 17:35 WBC 20.81 H RBC 4.39 Hgb 12.3 Hct 36.2 MCV 82.5 MCH 28.0 MCHC 34.0 RDW 14.3 Plt Count 348 MPV 9.2 Immature Gran % 0.3 Neutrophils % 81.9 Lymphocytes % 8.6 Monocytes % 8.8 Eosinophils % 0.3 Basophils % 0.1 Absolute Neutrophils 17.04 H Absolute Lymphocytes 1.79 Absolute Monocytes 1.83 H Absolute Eosinophils 0.06 Absolute Basophils 0.02 Differential Comment Manual differential D-Dimer Sodium 134 L Potassium 3.6 Chloride 101 Carbon Dioxide 23.0 Anion Gap 10.0 BUN 5 L Creatinine 0.47 L Estimated GFR/1.73 m2 >= 60.00 Glucose 75 Calcium 8.3 L Total Bilirubin 0.3 AST 15 ALT 19 Alkaline Phosphatase 94 Total Protein 7.6 Albumin 2.8 L Urine Color Yellow Urine Clarity Sl cloudy Urine pH 6.0 Ur Specific [place] 1.015 Urine Protein Negative Urine Ketones 40 H Urine Blood Negative Urine Nitrite Negative Urine Bilirubin Negative Urine Urobilinogen 0.2 Ur Leukocyte Esterase Negative Urine Glucose Negative 06/20/18 06/21/18 20:14 06:20 WBC 14.98 H RBC 4.02 Hgb 11.2 L Hct 34.1 L MCV 84.8 MCH 27.9 MCHC 32.8 RDW 14.4 Plt Count 342 MPV 9.2 Immature Gran % Neutrophils % Lymphocytes % Monocytes % Eosinophils % Basophils % Absolute Neutrophils Absolute Lymphocytes Absolute Monocytes Absolute Eosinophils Absolute Basophils Differential Comment D-Dimer 373 Sodium Potassium Chloride Carbon Dioxide Anion Gap BUN Creatinine Estimated GFR/1.73 m2 Glucose Calcium Total Bilirubin AST ALT Alkaline Phosphatase Total Protein Albumin Urine Color Urine Clarity Urine pH Ur Specific [place] Urine Protein Urine Ketones Urine Blood Urine Nitrite Urine Bilirubin Urine Urobilinogen Ur Leukocyte Esterase Urine Glucose
--- NOTE | 2018-06-21 13:56 | MCONE_ITS ---
Date of service: 06/21/18 Time of Service: 13:53 Assessment and Plan (1) Community acquired pneumonia: Current visit: No Status: Acute Community-acquired pneumonia. Unusual pathogens not suspected. Positive infiltrate in the right lower lobe. Should improve with parenteral antibiotics followed by oral antibiotics. Ceftriaxone/azithromycin. If doing well could transition to p.o. azithromycin tomorrow to complete a 5 day course. (2) Encounter for supervision of other normal , unspecified trimester: Current visit: No Status: Acute 16 weeks . viability reassuring per Dr. Holland. Continue present meds. History of Present Illness Chief Complaint: Right lower lobe pneumonia Narrative: This is a 22-year-old woman currently 16 weeks that presented with worsening cough and shortness of breath. She was admitted to the [facility] floor for parenteral antibiotics. We are asked by Dr. Holland from the [facility] service to evaluate her for any medical complications. Blood pressure is apparently been running a little low, her heart rate has been running around 100 bpm. Consults Consult date: 06/21/18 Requesting physician: Corazon Holland Review of Systems Review of Systems She has been sick for nearly 1 month. She was seen by her PCP and [facility] provider. Ultimately presented to the emergency room for further evaluation. Constitutional Denies anorexia, Reports body ache(s) and Reports difficulty sleeping Cardiovascular Denies chest pain Respiratory Reports chest congestion, Reports cough and Reports excessive phlegm production Gastrointestinal Denies abdominal pain and Denies change in bowel habits PFSH Family History Grandmother Breast cancer Medical History Community acquired pneumonia (Acute) Encounter for supervision of other normal , unspecified trimester ( Acute) H/O dilation and curettage (Acute) Miscarriage (Acute) ulcer Social History Smoking/Tobacco Use Status: Former Tobacco Use alcohol intake: current substance use type: marijuana cori/lutheran: Nondenominational Exam Narrative Exam Narrative: Lying comfortably on the stretcher with her 3-year-old daughter next to her. She had a mild cough but no respiratory distress. Const General: cooperative, healthy appearing and no acute distress Nutritional Appearance: average body habitus Chest Chest: normal inspection of the chest Resp Effort & Inspection: normal respiratory effort Auscultation: crackles (Right base) and diminished lung sounds Cardio Rate: regular rate Rhythm: regular rhythm Heart Sounds: S1 normal, S2 normal and no murmurs GI Palpation: soft and nontender OB/External & Speculum: deferred (Gravid uterus nontender) Skin General skin exam: no rashes or lesions noted Results Labs : 06/21/18 06:20 06/20/18 16:55 Laboratory Results - last 24 hr 06/20/18 06/20/18 06/20/18 16:55 16:55 17:35 WBC 20.81 H RBC 4.39 Hgb 12.3 Hct 36.2 MCV 82.5 MCH 28.0 MCHC 34.0 RDW 14.3 Plt Count 348 MPV 9.2 Immature Gran % 0.3 Neutrophils % 81.9 Lymphocytes % 8.6 Monocytes % 8.8 Eosinophils % 0.3 Basophils % 0.1 Absolute Neutrophils 17.04 H Absolute Lymphocytes 1.79 Absolute Monocytes 1.83 H Absolute Eosinophils 0.06 Absolute Basophils 0.02 Differential Comment Manual differential D-Dimer Sodium 134 L Potassium 3.6 Chloride 101 Carbon Dioxide 23.0 Anion Gap 10.0 BUN 5 L Creatinine 0.47 L Estimated GFR/1.73 m2 >= 60.00 Glucose 75 Calcium 8.3 L Total Bilirubin 0.3 AST 15 ALT 19 Alkaline Phosphatase 94 Total Protein 7.6 Albumin 2.8 L Urine Color Yellow Urine Clarity Sl cloudy Urine pH 6.0 Ur Specific [place] 1.015 Urine Protein Negative Urine Ketones 40 H Urine Blood Negative Urine Nitrite Negative Urine Bilirubin Negative Urine Urobilinogen 0.2 Ur Leukocyte Esterase Negative Urine Glucose Negative 06/20/18 06/21/18 20:14 06:20 WBC 14.98 H RBC 4.02 Hgb 11.2 L Hct 34.1 L MCV 84.8 MCH 27.9 MCHC 32.8 RDW 14.4 Plt Count 342 MPV 9.2 Immature Gran % Neutrophils % Lymphocytes % Monocytes % Eosinophils % Basophils % Absolute Neutrophils Absolute Lymphocytes Absolute Monocytes Absolute Eosinophils Absolute Basophils Differential Comment D-Dimer 373 Sodium Potassium Chloride Carbon Dioxide Anion Gap BUN Creatinine Estimated GFR/1.73 m2 Glucose Calcium Total Bilirubin AST ALT Alkaline Phosphatase Total Protein Albumin Urine Color Urine Clarity Urine pH Ur Specific [place] Urine Protein Urine Ketones Urine Blood Urine Nitrite Urine Bilirubin Urine Urobilinogen Ur Leukocyte Esterase Urine Glucose
--- NOTE | 2018-06-21 15:10 | PHARADMIT ---
Admission Pharmacy Clinical Review 16W EGA W/ PNEUMONIA Code Status Full Code Current Weight 67.132 kg Renally Cleared and Narrow Therapeutic Index Meds CRCL ~82ML/MIN QTc Value / Action Taken BP Control, Fever 97/62 AFEBRILE Electrolytes reviewed NA DVT Prophylaxis NO Opiate Usage / Scheduled Bowel Regimen Ordered NO/NO Plt/SCr for Heparin / Enoxaparin 342/0.47 INR for Warfarin NA H/H stable, WBC/Bands 11.2/34.1 WBC 14.98 Antibiotic appropriateness AZITHROMYCIN, CEFTRIAXONE Cultures and Sensitivities BC PENDING Surgical ABX d/c within 24 hr NA DM control / Insulin Dosing NA Heart Failure (Check EF%) (JOS's, B-Block, Diuretics) NA IV to PO Switch Home Meds Reviewed Home Meds Not Ordered PNV [id number] oil [ with DHA-Folic Acid] 1 tab PO DAILY 08/04/17 [History Confirmed 06/20/18] Comments
[2018-06-21 16:00] VITALS: BP 110/71; PULSE 107; RESP 18; TEMP 37; O2SAT 97
[2018-06-21 18:54] VITALS: BP 102/67; PULSE 112; RESP 18; TEMP 37.5; O2SAT 96
[2018-06-22 06:40] VITALS: PULSE 100
[2018-06-22] MEDS: Lactated Ringers 1,000 ML 125 ML IV (06:56)
[2018-06-22 07:07] LABS: HCT 33.9 % (36.0-46.0); HGB 11.3 g/dL (12.0-15.5); Mean Corp. HGB Concentration 33.3 g/dL (32.0-36.0); Mean Corpuscular Hemoglobin 28.4 pg (27.0-33.0); Mean Corpuscular Volume 85.2 fL (80-95); Mean Platelet Volume 9.4 fL (8.0-11.0); Platelet Count 318 x1000/uL (130-400); RBC 3.98 m/cumm (4.00-5.20); RBC Distribution Width 14.3 % (11.7-14.6); White Blood Cell Count 16.44 k/cumm (4.4-10.8)
[2018-06-22 07:15] VITALS: BP 99/62; PULSE 100; RESP 19; TEMP 36.8; O2SAT 95
[2018-06-22] MEDS: Azithromycin 250 MG TAB PO (08:15)
--- NOTE | 2018-06-22 09:18 | PDOC.CMDIS ---
- If Service Date Differs Date of service: 06/22/18 Time of Service: 09:18 LACE Index Scoring Tool - Questions: Length of Stay (in days): 3 Acuity (Admit via E.D.?): Yes E.D. Visits: 3 - Answers: Total Score: 9 Risk of Readmission: Low Risk Care Management Discharge Reason for Hospitalization: Community aquired pneumonia Discharge Plan: Evita will be discharged home today on oral antibiotics. She will follow up with OBGYN as directed. She declines addtional services at this time. Evita will be transported home by private car with SO. Patient/Family Education Needs: Discharge education, follow up plan of care and limitations.
[2018-06-22 11:38] VITALS: BP 98/63; RESP 18; TEMP 36.6; O2SAT 95
--- NOTE | 2018-06-22 11:48 | W.PM.DS.N ---
Date of service: 06/22/18 Time of Service: 11:48 DS: Diagnosis Discharge Diagnosis (1) Community acquired pneumonia: Status: Resolved Asessment and Plan: Discharged home today. Continue oral Azithromycin 250 daily x 5 days and otc cough syrup. She will f/u Dr Holland 1 + 4 weeks A survey US will be scheduled and she declines Quad screen. (2) Encounter for supervision of other normal , unspecified trimester: Status: Deleted Asessment and Plan: Survey US 2-4 weeks declines quad testing good HR Follow up OB appointment in 4 week Discharge Plan Disposition Patient Disposition: HOME Condition: Improving Discharge Details Reason For Visit: 16W EGA W PNEUMONIA Admit Date/Time: 06/20/18 21:14 Admit Provider: Corazon Holland Attending Provider: Corazon Holland Primary Care Provider: [facility] Hospital Course: Admitted for community aquired Pneumonia, Receive IV Cephalosporin + Azithromycin. She was seen in consult by Dr Mares. Her clinical course improved. She was discharge on oral azithromycin x 5 days in improving condition . Home Meds and New Rx's Prescriptions: New dextromethorphan polistirex [Delsym 12 hour] 30 mg/5 mL Suspension,Extended Rel 12 Hr 60 mg PO Q12H PRN PRN (Reason: cough) 10 Days Qty: 240 RF: 0 acetaminophen [Tylenol] 325 mg Tablet 650 mg PO Q6H PRN PRNQty: 0 RF: 0 azithromycin 250 mg Tablet 250 mg PO DAILY 5 Days Qty: 5 RF: 0 Continue PNV 529-ktucu-nraul-3-fish oil [ with DHA-Folic Acid] 1 EACH tablet,chewable 1 tab PO DAILY RF: 0 Discharge Instructions Additional Instructions: Call for temp > 100.4, increasing shortness of breath, worsening cough or no improvement. Follow up with Dr. Holland in 1 and 4 weeks Stand Alone Forms: Nursing Discharge Form Activity:: Activity as Tolerated Equipment/Supplies:: No Equipment Needed Diet:: As tolerated Discharge Orders Discharge Orders: Discharge Order (Routine); Ordered 06/22/18 Ordered By: Elma Cunningham Other Ambulatory Orders: US OB 2-3 trimester (Routine) Timeframe: 3 Weeks Facility: [facility] - Location: DIAGNOSTIC IMAGING DEPT Ordered By: Elma Cunningham DS: Summary Status at Discharge Functional status at discharge: independent ambulation Time Spent with Patient Greater than 30 minutes Quality: AMI Clinical Trial Participant: No Exam Const General: cooperative and no acute distress Chest Chest: normal inspection of the chest Resp Auscultation: other (diminshed breath sound right base) Cardio Rate: regular rate (improved tachycardia) DS: Data Vitals/I&O Vitals and I&O: Vital Signs Temp 36.6 C 06/22/18 11:38 Pulse 100 H 06/22/18 07:15 Resp 18 06/22/18 11:38 BP 98/63 L 06/22/18 11:38 Pulse Ox 95 06/22/18 11:38 Intake & Output 06/21/18 06/21/18 06/22/18 11:59 23:59 11:59 Intake Total 1550 / 1550 2831.583 / 2831.583 1812.500 / 1812.500 Balance 1550 / 1550 2831.583 / 2831.583 1812.500 / 1812.500 Intake: IV 950 / 950 1841.583 / 3413.785 1168.500 / 1312.500 Oral 600 / 600 990 / 990 500 / 500 Other: Comment VOIDED INDEPENDENTLY IN TOILET Emesis Description Undigested Food Labs on day of discharge: Labs from last 24 hours 06/22/18 06:38 WBC 16.44 H RBC 3.98 L Hgb 11.3 L Hct 33.9 L MCV 85.2 MCH 28.4 MCHC 33.3 RDW 14.3 Plt Count 318 MPV 9.4 Preliminary micro results at discharge 06/20/18 21:27 Blood Culture - Preliminary Blood NO GROWTH 24 HOURS 06/20/18 20:40 Blood Culture - Preliminary Blood NO GROWTH 24 HOURS
--- NOTE | 2018-06-22 11:55 | DSE_ITS ---
Date of service: 06/22/18 Time of Service: 11:48 DS: Diagnosis Discharge Diagnosis (1) Community acquired pneumonia: Status: Resolved Asessment and Plan: Discharged home today. Continue oral Azithromycin 250 daily x 5 days and otc cough syrup. She will f/u Dr Holland 1 + 4 weeks A survey US will be scheduled and she declines Quad screen. (2) Encounter for supervision of other normal , unspecified trimester: Status: Deleted Asessment and Plan: Survey US 2-4 weeks declines quad testing good HR Follow up OB appointment in 4 week Discharge Plan Disposition Patient Disposition: HOME Condition: Improving Discharge Details Reason For Visit: 16W EGA W PNEUMONIA Admit Date/Time: 06/20/18 21:14 Admit Provider: Corazon Holland Attending Provider: Corazon Holland Primary Care Provider: [facility] Hospital Course: Admitted for community aquired Pneumonia, Receive IV Cephalosporin + Azithromycin. She was seen in consult by Dr Mares. Her clinical course improved. She was discharge on oral azithromycin x 5 days in improving condition . Home Meds and New Rx's Prescriptions: New dextromethorphan polistirex [Delsym 12 hour] 30 mg/5 mL Suspension,Extended Rel 12 Hr 60 mg PO Q12H PRN PRN (Reason: cough) 10 Days Qty: 240 RF: 0 acetaminophen [Tylenol] 325 mg Tablet 650 mg PO Q6H PRN PRNQty: 0 RF: 0 azithromycin 250 mg Tablet 250 mg PO DAILY 5 Days Qty: 5 RF: 0 Continue PNV 380-mfpbf-jyrjn-3-fish oil [ with DHA-Folic Acid] 1 EACH tablet, chewable 1 tab PO DAILY RF: 0 Discharge Instructions Additional Instructions: Call for temp > 100.4, increasing shortness of breath, worsening cough or no improvement. Follow up with Dr. Holland in 1 and 4 weeks Stand Alone Forms: Nursing Discharge Form Activity:: Activity as Tolerated Equipment/Supplies:: No Equipment Needed Diet:: As tolerated Discharge Orders Discharge Orders: Discharge Order (Routine); Ordered 06/22/18 Ordered By: Elma Cunningham Other Ambulatory Orders: US OB 2-3 trimester (Routine) Timeframe: 3 Weeks Facility: [facility] - Location: DIAGNOSTIC IMAGING DEPT Ordered By: Elma Cunningham DS: Summary Status at Discharge Functional status at discharge: independent ambulation Time Spent with Patient Greater than 30 minutes Quality: AMI Clinical Trial Participant: No Exam Const General: cooperative and no acute distress Chest Chest: normal inspection of the chest Resp Auscultation: other (diminshed breath sound right base) Cardio Rate: regular rate (improved tachycardia) DS: Data Vitals/I&O Vitals and I&O: Vital Signs Temp 36.6 C 06/22/18 11:38 Pulse 100 H 06/22/18 07:15 Resp 18 06/22/18 11:38 BP 98/63 L 06/22/18 11:38 Pulse Ox 95 06/22/18 11:38 Intake & Output 06/21/18 06/21/18 06/22/18 11:59 23:59 11:59 Intake Total 1550 / 1550 2831.583 / 2831.583 1812.500 / 1812.500 Balance 1550 / 1550 2831.583 / 2831.583 1812.500 / 1812.500 Intake: IV 950 / 950 1841.583 / 9211.430 1575.500 / 1312.500 Oral 600 / 600 990 / 990 500 / 500 Other: Comment VOIDED INDEPENDENTLY IN TOILET Emesis Description Undigested Food Labs on day of discharge: Labs from last 24 hours 06/22/18 06:38 WBC 16.44 H RBC 3.98 L Hgb 11.3 L Hct 33.9 L MCV 85.2 MCH 28.4 MCHC 33.3 RDW 14.3 Plt Count 318 MPV 9.4 Preliminary micro results at discharge 06/20/18 21:27 Blood Culture - Preliminary Blood NO GROWTH 24 HOURS 06/20/18 20:40 Blood Culture - Preliminary Blood NO GROWTH 24 HOURS
== END 2018-06-22 14:00 | disposition home or self-care (01) ==
LOC: ER 22:26 → MS 22:41
PROVIDERS: Admitting Provider Obstetrics & Gynecology Gynecology; Emergency Provider Nurse Practitioner Acute Care; PCP Family Medicine; Visit Provider Obstetrics & Gynecology
DX: O99.512 Diseases of the respiratory system complicating pregnancy, second trimester (principal); J18.9 Pneumonia, unspecified organism; Z3A.16 16 weeks gestation of pregnancy; O99.322 Drug use complicating pregnancy, second trimester; F12.90 Cannabis use, unspecified, uncomplicated
CPT/HCPCS: 36415; 76815; 80053; 85027; 87040; 96361; 96365; 96366; 99219; 99231; 99239; 99252; 99285; 71046; 81003; 85025; 85379; 99221; 99284; G0378; J0696

== ENCOUNTER 2018-07-17 00:32 | Outpatient (CLI) | payer MEDICAID, SELFPAY ==
--- NOTE | 2018-07-17 11:37 | DI.US_ITS ---
SYMPTOMS/DIAGNOSIS: SURVEY, Z34.80 OBSTETRICAL ULTRASOUND: Many abnormalities cannot be diagnosed. A normal exam does not exclude a congenital anomaly. Radiology No. [id number] LMP: Exam Date: 07/17/18 [facility] wks days on EDC ([facility]) 12/05/18 Confirmed: HISTORY: ---- PREDICTED GESTATIONAL AGE NUMBER 19+6 weeks with a range of 18+6 weeks to 20+6 weeks. 1 Determined by___1STUS___LMP___HISTORY PLACENTA PRESENTATION Grade I Cephalic_X__ Anterior___Posterior_X__ Breech____ Right Left Transverse(head right___ Fundal___Low-lying___Previa___ Transverse(head left___ Varying BIOMETRY AMNIOTIC FLUID BPD: 44 mm 19+2 weeks Normal HC: 169 mm 19+4 weeks AC: 137 mm 19+1 weeks FL: 30 mm 19+1 weeks AMNIOTIC FLUID INDEX >26 WK CRL: mm weeks Cisterna Magna: 2.9 mm CI: 77 RUQ: LUQ Cerebellum: 2.0 cm EFW: 277 grams Percentile: 14th RLQ: LLQ Total: cms Composite AGE= 19+2 wks EDC by US: 12/09/18 BIOPHYSICAL PROFILE ANATOMY IDENTIFIED SCORE 0/2 Heart: 4-Chamber_X__Rate:BPM 152 LVOT: X RVOT:___X Amniotic Fluid(>2cms)____ Stomach:___X____ Kidneys:__X Respirations (>30 secs) Bladder:____X____ Post. Fossa:___X Body Flex/Extension 3-vessel cord:___X____Ventricles:__X Cord insertion:__X___ Lips:_X___ Extremity Flex/Extension Spinal morphology:____X____Nose:__X__ Total Score= Palate:___X____ NS=not seen COMMENTS: Routine examination was performed. There is a single living intrauterine gestation. Estimated sonographic age is 19 weeks 2 days. The fetus is in the cephalic presentation. heart rate is 152 beats per minute. There are bilateral prominent renal pelves. The renal pelvic diameter on the right is 5.3 mm, on the left 5.7 mm. The remaining anatomic evaluation is unremarkable. The placenta is posterior without evidence of previa. The estimated weight is 277 g, which is the 14th percentile. The amniotic fluid is within normal limits visually. IMPRESSION: 1. Single living intrauterine gestation. Estimated sonographic age is 19 weeks 2 days. 2. Prominent renal pelves. A follow-up evaluation in two to four weeks is recommended for reevaluation of the renal pelves.
== END 2018-07-17 00:52 ==
PROVIDERS: PCP Family Medicine; Visit Provider Obstetrics & Gynecology Gynecology
DX: Z34.92 Encounter for supervision of normal pregnancy, unspecified, second trimester (principal)
CPT/HCPCS: 76805

== ENCOUNTER 2018-07-22 12:07 | Emergency (ER) | payer MEDICAID, SELFPAY ==
[2018-07-22 12:33] VITALS: BP 100/55; PULSE 81; RESP 16; TEMP 37.1; O2SAT 99
--- NOTE | 2018-07-22 12:57 | W.ED.GENAD ---
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 cramping affecting Primary Care Provider: [facility] ED Provider: Jesse Montaño Home Meds and New Rx's Prescriptions: Continue PNV 053-bbfsr-mtryb-3-fish oil [ with DHA-Folic Acid] 1 EACH tablet,chewable 1 tab PO DAILY RF: 0 Discharge Instructions Additional Instructions: Your symptoms could be due to Tray Reyes or normal movements follow up with your obgyn provider if symptoms continue return to the emergency department for severe pain, heavy bleeding or persistent vomit Discharge Data Discharge Physician: Jesse Montaño Medical Decision Making 23 yo at 20.5 weeks per pt comes in with complaint of lower abdominal cramping and pressure that started about an hour ago and has now resolved. Denies any pain, fevers, vomit, no dishcarge or vaginal bleeding. She has no tenderness on exam and on bedside u/s has live fetus with FHR of 140 and pt states she has felt normal movements. Suspect either tray reyes vs normal movements. Advised f/u with nurse case manager and return precautions given Differential Diagnosis tray reyes, normal movements, gastroenteritis HPI General Mode of arrival: ambulatory. Date/Time Provider Initiated Documentation: 07/22/18 12:39. Limitations to Documentation: no limitations. Information obtained by: patient. History of Present Illness 23 year old F presents to the emergency department with the chief complaint of lower abdominal cramping, described as mild, with intensity rated at 3. and is localized to the abdomen. Patient reports no radiation. Patient started experiencing this hour(s) (1) and it has been now resolved. No relieving factors improve symptom(s), No exacerbating factors reported . Patient notes no other symptoms.. 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 Review of Systems Review of Systems All systems reviewed & are unremarkable except as noted in HPI and below Constitutional Denies chills, Denies fever(s) and Denies weakness Eyes Denies loss of vision ENT Denies change in voice Cardiovascular Denies chest pain and Denies dyspnea Respiratory Denies dyspnea Gastrointestinal Denies abdominal pain, Denies nausea and Denies vomiting Genitourinary Denies dysuria Musculoskeletal Denies joint swelling Integumentary/Breasts Denies rash Neurologic Denies loss of vision and Denies weakness Psychiatric Denies depression Endocrine Denies cold intolerance and Denies heat intolerance Allergic/Immunologic Reports urticaria PFSH Family History Grandmother Breast cancer Medical History Miscarriage (Resolved) Community acquired pneumonia (Resolved) Social History Smoking/Tobacco Use Status: Former Tobacco Use alcohol intake: current substance use type: marijuana cori/pentecostalism: [employer] Surgical History H/O dilation and curettage (Resolved) Exam Const General: no acute distress Orientation: alert HENTX Head: normal to inspection Ears: external ears normal General nose exam: external nose normal Mouth: moist mucous membranes Eyes General: appearance normal, both eyes and all related structures Neck Neck: normal visual inspection Resp Effort & Inspection: normal respiratory effort and able to speak in complete sentences Cardio Rate: regular rate GI Palpation: soft and nontender Skin General skin exam: no rashes or lesions noted Neuro General: alert and oriented x3 Extrem General: normal to inspection Psych Mental Status: mental status grossly normal Course Vital Signs Temperature 37.1 C 07/22/18 12:33 Pulse 81 07/22/18 12:33 Respiratory Rate 16 07/22/18 12:33 Blood Pressure 100/55 L 07/22/18 12:33 Pulse Oximetry 99 07/22/18 12:33 Temperature 37.1 C 07/22/18 12:33 Temperature Source Temporal Artery Scan 07/22/18 12:33 Pulse 81 07/22/18 12:33 Respiratory Rate 16 07/22/18 12:33 Respiratory Effort 07/22/18 12:36 Blood Pressure 100/55 L 07/22/18 12:33 Pulse Oximetry 99 07/22/18 12:33 Oxygen Delivery Method Room Air 07/22/18 12:33 Oxygen Flow Rate 0 07/22/18 12:33 Pain Level 6 07/22/18 12:37
--- NOTE | 2018-07-22 13:00 | ED.GENADUL_ITS ---
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: Abdominal cramping affecting Primary Care Provider: Yad[facility] ED Provider: Jesse Montaño Home Meds and New Rx's Prescriptions: Continue PNV 029-ppywd-ihxeb-3-fish oil [ with DHA-Folic Acid] 1 EACH tablet, chewable 1 tab PO DAILY RF: 0 Discharge Instructions Additional Instructions: Your symptoms could be due to Tray Reyes or normal movements follow up with your obgyn provider if symptoms continue return to the emergency department for severe pain, heavy bleeding or persistent vomit Discharge Data Discharge Physician: Jesse Montaño Medical Decision Making 23 yo at 20.5 weeks per pt comes in with complaint of lower abdominal cramping and pressure that started about an hour ago and has now resolved. Denies any pain, fevers, vomit, no dishcarge or vaginal bleeding. She has no tenderness on exam and on bedside u/s has live fetus with FHR of 140 and pt states she has felt normal movements. Suspect either tray reyes vs normal movements. Advised f/u with closer on and return precautions given Differential Diagnosis tray reyes, normal movements, gastroenteritis HPI General Mode of arrival: ambulatory . Date/Time Provider Initiated Documentation: 07/22/18 12:39 . Limitations to Documentation: no limitations . Information obtained by: patient . History of Present Illness 23 year old F presents to the emergency department with the chief complaint of lower abdominal cramping, described as mild, with intensity rated at 3. and is localized to the abdomen. Patient reports no radiation. Patient started experiencing this hour(s) (1) and it has been now resolved. No relieving factors improve symptom(s), No exacerbating factors reported . Patient notes no other symptoms.. 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 Review of Systems Review of Systems All systems reviewed & are unremarkable except as noted in HPI and below Constitutional Denies chills, Denies fever(s) and Denies weakness Eyes Denies loss of vision ENT Denies change in voice Cardiovascular Denies chest pain and Denies dyspnea Respiratory Denies dyspnea Gastrointestinal Denies abdominal pain, Denies nausea and Denies vomiting Genitourinary Denies dysuria Musculoskeletal Denies joint swelling Integumentary/Breasts Denies rash Neurologic Denies loss of vision and Denies weakness Psychiatric Denies depression Endocrine Denies cold intolerance and Denies heat intolerance Allergic/Immunologic Reports urticaria PFSH Family History Grandmother Breast cancer Medical History Miscarriage (Resolved) Community acquired pneumonia (Resolved) Social History Smoking/Tobacco Use Status: Former Tobacco Use alcohol intake: current substance use type: marijuana cori/sabianist: Congregational Surgical History H/O dilation and curettage (Resolved) Exam Const General: no acute distress Orientation: alert HENND Head: normal to inspection Ears: external ears normal General nose exam: external nose normal Mouth: moist mucous membranes Eyes General: appearance normal, both eyes and all related structures Neck Neck: normal visual inspection Resp Effort & Inspection: normal respiratory effort and able to speak in complete sentences Cardio Rate: regular rate GI Palpation: soft and nontender Skin General skin exam: no rashes or lesions noted Neuro General: alert and oriented x3 Extrem General: normal to inspection Psych Mental Status: mental status grossly normal Course Vital Signs Temperature 37.1 C 07/22/18 12:33 Pulse 81 07/22/18 12:33 Respiratory Rate 16 07/22/18 12:33 Blood Pressure 100/55 L 07/22/18 12:33 Pulse Oximetry 99 07/22/18 12:33 Temperature 37.1 C 07/22/18 12:33 Temperature Source Temporal Artery Scan 07/22/18 12:33 Pulse 81 07/22/18 12:33 Respiratory Rate 16 07/22/18 12:33 Respiratory Effort 07/22/18 12:36 Blood Pressure 100/55 L 07/22/18 12:33 Pulse Oximetry 99 07/22/18 12:33 Oxygen Delivery Method Room Air 07/22/18 12:33 Oxygen Flow Rate 0 07/22/18 12:33 Pain Level 6 07/22/18 12:37
== END 2018-07-22 13:16 | disposition home or self-care (01) ==
LOC: ER 13:39
PROVIDERS: Emergency Provider Emergency Medicine; PCP Family Medicine
DX: O26.891 Other specified pregnancy related conditions, first trimester (principal); R10.9 Unspecified abdominal pain
CPT/HCPCS: 99283

== ENCOUNTER 2018-08-02 11:31 | Outpatient (CLI) | payer MEDICAID, SELFPAY ==
[2018-08-02 11:56] LABS: Kit/Specimen SENT
== END 2018-08-02 11:51 ==
PROVIDERS: PCP Family Medicine; Visit Provider Obstetrics & Gynecology Gynecology
DX: O28.3 Abnormal ultrasonic finding on antenatal screening of mother (principal)
CPT/HCPCS: 36415

== ENCOUNTER 2018-08-15 09:18 | Emergency (ER) | payer MEDICAID, SELFPAY ==
[2018-08-15 09:27] VITALS: BP 98/53; PULSE 79; RESP 16; TEMP 36.6; O2SAT 96
--- NOTE | 2018-08-15 09:54 | DI.US_ITS ---
SYMPTOMS/DIAGNOSIS: ATTENTION RUQ, ? GB PATHOLOGY ABDOMINAL ULTRASOUND: The aorta and vena cava are intact. The liver is enlarged at 18.1 cm. The gallbladder is unremarkable. There are no stones or ductal dilatation. The pancreas is normal. The spleen is top limits of normal in size. There is mild right hydronephrosis. The kidneys are otherwise unremarkable. There is no evidence of free fluid. SUMMARY: Mild hydronephrotic changes involving the right kidney are demonstrated. There is hepatic enlargement with no focal liver abnormality seen. The study is otherwise unremarkable.
[2018-08-15 10:36] LABS: Abs Immature Grans 0.02 k/cumm (0.0-0.09); Absolute Basophil Count 0.03 k/cumm (0.0-0.2); Absolute Eosinophil Count 0.13 k/cumm (0.0-0.7); Absolute Lymphocyte Count 1.49 k/cumm (1.2-3.4); Absolute Monocyte Count 0.58 k/cumm (0.11-0.7); Basophils % 0.3; Eosinophils % 1.3; HCT 35.7 % (36.0-46.0); HGB 11.7 g/dL (12.0-15.5); Immature Grans % 0.2; Lymphocytes % 14.8; Mean Corp. HGB Concentration 32.8 g/dL (32.0-36.0); Mean Corpuscular Hemoglobin 28.4 pg (27.0-33.0); Mean Corpuscular Volume 86.7 fL (80-95); Mean Platelet Volume 9.7 fL (8.0-11.0); Monocytes % 5.8; Neutrophils % 77.6; Platelet Count 315 x1000/uL (130-400); RBC 4.12 m/cumm (4.00-5.20); RBC Distribution Width 14.1 % (11.7-14.6); White Blood Cell Count 10.05 k/cumm (4.4-10.8)
[2018-08-15] MEDS: Sucralfate 1 GM TAB PO (10:52)
[2018-08-15] MEDS: Lactated Ringers 1,000 ML 1000 ML IV (10:52)
[2018-08-15 10:57] LABS: ALT 19 U/L (12-78); AST 13 U/L (15-37); Albumin 2.8 g/dL (3.4-5.0); Alkaline Phosphatase 79 U/L (46-116); Anion Gap 11.6 mmol/L (3-11); Bilirubin, Total 0.2 mg/dL (0.2-1.0); CO2 20.4 mmol/L (21.0-32.0); CREATININE 0.57 mg/dL (0.55-1.02); Calcium 8.3 mg/dL (8.5-10.1); Chloride 102 mmol/L (98-107); Glucose 75 mg/dL (70-100); Lipase 97 U/L (73-393); Potassium 3.5 mmol/L (3.5-5.1); Sodium 134 mmol/L (136-145)
--- NOTE | 2018-08-15 11:05 | ED.GENADUL_ITS ---
Discharge Plan Disposition Patient Disposition: HOME Condition: Good Discharge Details Chief Complaint: Abd Prob Clinical Impression: Nausea & vomiting Primary Care Provider: Yadira Churchill ED Provider: Amado Garcia Home Meds and New Rx's Prescriptions: New ondansetron HCl [Zofran] 4 mg tablet 4 mg PO TID PRN (Reason: nausea and vomiting) 5 Days Qty: 5 RF: 0 No Action PNV [id number] oil [ with DHA-Folic Acid] 1 EACH tablet, chewable 1 tab PO DAILY RF: 0 Discharge Instructions Instructions: Acute Nausea and Vomiting (ED) Additional Instructions: Please take the Zofran only as needed. Please stick with an easy diet of soft foods, and soups over the next 24-48 hours. If you notice any worsening of your symptoms, or any new symptoms such as vomiting, diarrhea, fever, chills, vaginal discharge, pelvic pain shortness of breath, chest pain, numbness, weakness, or fainting , please return immediately to the emergency department for reevaluation. Please follow up with your primary care provider and your obstetrics gynecology as soon as possible for reassessment and reevaluation. As always, it was a pleasure participating in your medical care today. Referrals: Yadira Churchill [Primary Care Provider] - Discharge Data Discharge Date/Time-TO BE ENTERED AT DEPARTURE: 08/15/18 14:11 Medical Decision Making This is a pleasant 23-year-old female who is a at 24 weeks who presents for evaluation of right upper quadrant abdominal pain. It started last night, lasted a few hours and had associated nonbilious vomiting. The pain went away on its own, however when discussing it with her obstetrics chimney construction supervisor they recommended that she come in here for further evaluation. The patient denies any pelvic pain, vaginal discharge, she states that the baby is moving normally. She has been able to tolerate fluids since her initial episodes of vomiting earlier this evening. Physical exam demonstrates no guarding, rebound, or tenderness. No hepatomegaly, negative Hernandez sign. She does have slightly dry mucous membranes, but no other significant abnormalities on exam. Because of the initial location of her pain in the right upper quadrant differential certainly includes gallbladder etiology. Ultrasound was ordered and demonstrates no significant abnormality. Mild congestion is noted in the liver, and mild hydronephrosis but no other significant abnormalities. Patient's laboratory workup demonstrates a normal urinalysis with no evidence of proteinuria, labs show no evidence of transaminitis, or other abnormalities. No evidence of infection on UA. After the patient was rehydrated, she did have an oral trial and she tolerated this well. With no evidence of hypertension, pre-eclampsia, or gallbladder etiology with no abdominal tenderness, and normal vital signs I feel she can be safely discharged home with close follow-up with her obstetrics chimney construction supervisor. The patient did request some Zofran for home use, in case she did get nauseous again and I did discuss with her the potential for iatrogenic risk in the first trimester, she states that she understands this and has used Zofran in the past during her as prescribed by her obstetrics gynecology and would like to use it again. That this is reasonable as the patient has good understanding of the current scenario. We discussed red flags for which to return and the importance of follow-up and the patient understands. I have extensively reviewed the treatment plan and discharge instructions with the patient. I have addressed all patient concerns at this time. The patient was made aware of what symptoms to monitor for that would warrant a return to the emergency department. Discussed the plan with the patient, they demonstrate verbal understanding and agreement with our assessment and plan at this time. HPI General Date/Time Provider Initiated Documentation: 08/15/18 09:54 . HPI Narrative: This is a 23-year-old female who is a 24 weeks who takes her vitamins who denies any other significant past medical history at this time who presents for evaluation of right upper quadrant pain. Patient states that last night she had 2-3 episodes of nonbilious vomiting, with some associated right upper quadrant pain that radiated to the left upper quadrant. After these episodes of vomiting the pain resolved on its own. In the morning she contacted her obstetrics chimney construction supervisor discussed the case with her recommended that she come in to be checked out. Currently the patient is asymptomatic. She does have a slight decreased appetite, but denies any abdominal pain, nausea, or continued vomiting. She denies any associated diarrhea, chest pain, shortness of breath. She denies any pelvic pain, vaginal discharge, or other significant abnormalities. She denies any dysuria or hematuria. She has no other complaints at this time. 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 She denies any other complaints , any history of gallbladder issue, which she does admit to a family history of gallbladder disease. She denies any other modifying factors at this time. She denies any recent abdominal surgeries. Related Data Home Medications Medication Instructions Recorded Confirmed PNV [id number] oil 1 tab PO DAILY 08/04/17 08/15/18 [ with DHA-Folic Acid] ondansetron HCl [Zofran] 4 mg PO TID PRN 5 Days #5 tab 08/15/18 Previous Rx's Medication Instructions Recorded ondansetron HCl [Zofran] 4 mg PO TID PRN 5 Days #5 tab 08/15/18 Allergies Allergy/AdvReac Type Severity Reaction Status Date / Time codeine AdvReac Intermediate very sick Unverified 08/15/18 09:30 General Stated Complaint: Abd Prob SELVIN: 2 Review of Systems Review of Systems All systems reviewed & are unremarkable except as noted in HPI and below Exam Narrative Exam Narrative: 1.Const: Well-nourished, Well-developed, appearing stated age 2.Eyes: PERRL, no conjunctival injection, and symmetrical lids. 3.ENT: Atraumatic external nose and ears. Slightly dry MM. Neck: Symmetric, trachea midline, No thyromegaly. 4.CVS: +S1/S2, No murmurs or gallops. Peripheral pulses 2+ and equal in all extremities. Brisk capillary refill in all extremities. 5.RESP: Unlabored respiratory effort. Clear to auscultation bilaterally. No wheezes rales or rhonchi 6.GI: Soft, Nontender/Nondistended, No hepatosplenomegaly. No guarding or rebound. Gravid abdomen, negative obturator and psoas sign, negative Hernandez sign, no pain at McBurney's point. No abdominal tenderness throughout on exam. 7.MSK: Normocephalic/Atraumatic, Extremities w/o deformity or ttp No cyanosis or clubbing, Normal movement of all extremities. No evidence of significant pitting edema 8.Skin: Warm, Dry. No rashes or lesions. 9.Neuro: stenotypist II-XII grossly intact. Sensation grossly intact, no focal neurologic deficits. No evidence of hyper or hyporeflexia. 10.Psych: (AAO) x3. Appropriate mood and affect Course Vital Signs Temperature 36.6 C 08/15/18 09:27 Pulse 79 08/15/18 09:27 Respiratory Rate 16 08/15/18 09:27 Blood Pressure 98/53 L 08/15/18 09:27 Pulse Oximetry 96 08/15/18 09:27 Temperature 36.6 C 08/15/18 09:27 Temperature Source Skin 08/15/18 09:27 Pulse 79 08/15/18 09:27 Respiratory Rate 16 08/15/18 09:27 Respiratory Effort 08/15/18 09:27 Blood Pressure 98/53 L 08/15/18 09:27 Pulse Oximetry 96 08/15/18 09:27 Oxygen Delivery Method Room Air 08/15/18 09:27 Oxygen Flow Rate 0 08/15/18 09:27 Pain Level 0 08/15/18 09:27 Lab/Test Results Lab/Test Results: Laboratory Tests Range/Units 08/15/18 08/15/18 10:13 10:13 WBC (4.4-10.8) k/cumm 10.05 RBC (4.00-5.20) m/cumm 4.12 Hgb (12.0-15.5) g/dL 11.7 L Hct (36.0-46.0) % 35.7 L MCV (80-95) fL 86.7 MCH (27.0-33.0) pg 28.4 MCHC (32.0-36.0) g/dL 32.8 RDW (11.7-14.6) % 14.1 Plt Count (130-400) x1000/uL 315 MPV (8.0-11.0) fL 9.7 Immature Gran % 0.2 Neutrophils % 77.6 Lymphocytes % 14.8 Monocytes % 5.8 Eosinophils % 1.3 Basophils % 0.3 Absolute Neutrophils (1.2-6.7) k/cumm 7.80 H Absolute Lymphocytes (1.2-3.4) k/cumm 1.49 Absolute Monocytes (0.11-0.7) k/cumm 0.58 Absolute Eosinophils (0.0-0.7) k/cumm 0.13 Absolute Basophils (0.0-0.2) k/cumm 0.03 Sodium (136-145) mmol/L 134 L Potassium (3.5-5.1) mmol/L 3.5 Chloride (98-107) mmol/L 102 Carbon Dioxide (21.0-32.0) mmol/L 20.4 L Anion Gap (3-11) mmol/L 11.6 H Creatinine (0.55-1.02) mg/dL 0.57 Estimated GFR/1.73 m2 (mL/min/1.73m2) >= 60.00 Glucose (70-100) mg/dL 75 Calcium (8.5-10.1) mg/dL 8.3 L Total Bilirubin (0.2-1.0) mg/dL 0.2 AST (15-37) U/L 13 L ALT (12-78) U/L 19 Alkaline Phosphatase (46-116) U/L 79 Total Protein (6.4-8.2) g/dL 7.0 Albumin (3.4-5.0) g/dL 2.8 L Lipase (73-393) U/L 97
[2018-08-15 11:33] LABS: BUN 6 mg/dL (7-18)
[2018-08-15 11:35] LABS: HCG Quant, Pregnancy 8274 mIU/mL (1-3)
[2018-08-15 12:17] LABS: Bilirubin Negative (Negative); Blood Negative (Negative); Clarity Cloudy; Glucose Negative (Negative); Ketones Negative (Negative); Leukocyte Esterase Trace (Negative); Nitrite Negative (Negative); Urobilinogen 0.2 EU/dL (Up TO 0.2)
[2018-08-15 12:27] LABS: Bacteria Moderate HPF (Negative); Crystals Negative HPF (Negative); Epithelial Cells Many HPF (Negative); Mucus Negative (Negative); RBC 0-2 (0-2); WBC 0-2 HPF (0-5)
[2018-08-15 12:28] LABS: C & S Indicated? No/Sq. Contamination
[2018-08-15 14:00] VITALS: BP 98/55; PULSE 78; RESP 16; TEMP 36.8; O2SAT 96
== END 2018-08-15 14:11 | disposition home or self-care (01) ==
PROVIDERS: Emergency Provider Student in an Organized Health Care Education/Training Program; PCP Family Medicine
DX: O99.89 Other specified diseases and conditions complicating pregnancy, childbirth and the puerperium (principal); Z3A.24 24 weeks gestation of pregnancy; R10.31 Right lower quadrant pain; R11.2 Nausea with vomiting, unspecified
CPT/HCPCS: 36415; 80053; 81025; 83690; 96360; 99284; 76700; 81003; 81015; 84702; 85025

== ENCOUNTER 2018-09-14 07:48 | Outpatient (CLI) | payer MEDICAID, SELFPAY ==
[2018-09-14 08:37] LABS: Glucose,1 Hr (Glucola) 97 mg/dL (80-140)
== END 2018-09-14 08:08 ==
PROVIDERS: Obstetrics & Gynecology; PCP Family Medicine; Visit Provider Obstetrics & Gynecology Gynecology
DX: Z34.93 Encounter for supervision of normal pregnancy, unspecified, third trimester (principal)
CPT/HCPCS: 36415; 82950

== ENCOUNTER 2018-11-09 16:44 | Outpatient (REF) | payer MEDICAID, SELFPAY | END 2018-11-09 17:04 | LOC: LBN 16:44 | PROVIDERS: PCP Family Medicine; Visit Provider Advanced Practice Midwife | DX: Z34.93 Encounter for supervision of normal pregnancy, unspecified, third trimester (principal); Z36.85 Encounter for antenatal screening for Streptococcus B | CPT/HCPCS: 87081 ==

== ENCOUNTER 2018-11-13 13:13 | Outpatient (CLI) | payer MEDICAID, SELFPAY | END 2018-11-13 13:33 | PROVIDERS: PCP Family Medicine; Visit Provider Advanced Practice Midwife | DX: O60.03 Preterm labor without delivery, third trimester (principal); Z3A.36 36 weeks gestation of pregnancy | CPT/HCPCS: 59025 ==

== ENCOUNTER 2018-11-13 16:46 | Outpatient (REF) | payer MEDICAID, SELFPAY ==
[2018-11-13 20:51] LABS: Bilirubin Negative (Negative); Blood Negative (Negative); Clarity Clear; Glucose Negative (Negative); Ketones Negative (Negative); Leukocyte Esterase Negative (Negative); Nitrite Negative (Negative); Urobilinogen 0.2 EU/dL (Up TO 0.2)
== END 2018-11-13 17:06 ==
LOC: LBN 16:46
PROVIDERS: PCP Family Medicine; Visit Provider Advanced Practice Midwife
DX: O26.893 Other specified pregnancy related conditions, third trimester (principal); R30.0 Dysuria
CPT/HCPCS: 81003

== ENCOUNTER 2018-11-29 16:00 | Observation (INO) | payer MEDICAID, SELFPAY | END 2018-11-29 18:00 | disposition home or self-care (01) | PROVIDERS: Admitting Provider Advanced Practice Midwife; PCP Family Medicine; Visit Provider Advanced Practice Midwife | DX: O47.1 False labor at or after 37 completed weeks of gestation (principal); Z3A.39 39 weeks gestation of pregnancy | CPT/HCPCS: G0378 ==

== ENCOUNTER 2018-11-29 22:15 | Inpatient (IN) | payer MEDICAID, SELFPAY ==
[2018-11-30] MEDS: Hamamelis Leaf/Glycerin 100 EACH BOX PR (00:33)
[2018-11-30] MEDS: Acetaminophen 325 MG TAB 650 MG PO ×2 (00:34→11:07)
[2018-11-30] MEDS: Ibuprofen 600 MG TAB PO ×2 (00:34→11:08)
[2018-11-30 07:12] LABS: HCT 31.2 % (36.0-46.0); HGB 9.9 g/dL (12.0-15.5); Mean Corp. HGB Concentration 31.7 g/dL (32.0-36.0); Mean Corpuscular Hemoglobin 25.1 pg (27.0-33.0); Mean Corpuscular Volume 79.2 fL (80-95); Mean Platelet Volume 10.2 fL (8.0-11.0); Platelet Count 333 x1000/uL (130-400); RBC 3.94 m/cumm (4.00-5.20); RBC Distribution Width 14.4 % (11.7-14.6); White Blood Cell Count 17.58 k/cumm (4.4-10.8)
[2018-12-01] MEDS: Ibuprofen 600 MG TAB PO ×2 (12:51→22:10)
[2018-12-01] MEDS: Acetaminophen 325 MG TAB 650 MG PO ×2 (12:52→22:11)
[2018-12-01 12:58] LABS: Anion Gap 10.9 mmol/L (3-11); BUN 11 mg/dL (7-18); CO2 22.1 mmol/L (21.0-32.0); CREATININE 0.67 mg/dL (0.55-1.02); Calcium 7.9 mg/dL (8.5-10.1); Chloride 106 mmol/L (98-107); Glucose 75 mg/dL (70-100); Potassium 3.8 mmol/L (3.5-5.1); Sodium 139 mmol/L (136-145)
== END 2018-12-02 14:00 | disposition home or self-care (01) | DRG 807 ==
PROVIDERS: Advanced Practice Midwife; Admitting Provider Advanced Practice Midwife; PCP Family Medicine; Visit Provider Advanced Practice Midwife
DX: O99.02 Anemia complicating childbirth (principal); Z37.0 Single live birth; Z3A.39 39 weeks gestation of pregnancy; D64.9 Anemia, unspecified; O32.6XX0 Maternal care for compound presentation, not applicable or unspecified; O62.3 Precipitate labor; O35.8XX0 Maternal care for other (suspected) fetal abnormality and damage, not applicable or unspecified
CPT/HCPCS: 36415; 80048; 85027

== ENCOUNTER 2020-06-09 08:57 | Emergency (ER) | payer MEDICAID, SELFPAY ==
--- NOTE | 2020-06-09 09:00 | DI.RAD_ITS ---
EXAM: XR FOOT RT COMPLETE CLINICAL HISTORY: trauma. TECHNIQUE: 2D digital imaging was performed. COMPARISON: No priors for comparison FINDINGS: BONES: No acute fracture is present. No bony destructive lesion is seen. JOINTS: No dislocation present. SOFT TISSUE: Normal. IMPRESSION: No acute fracture or dislocation. Findings were discussed with the emergency department on the date of the examination. DATA REPOSITORY: RADIATION DOSE DELIVERED:
--- NOTE | 2020-06-09 09:00 | DI.RAD_ITS ---
EXAM: XR ANKLE RT COMPLETE CLINICAL HISTORY: trauma. TECHNIQUE: 2D digital imaging was performed. COMPARISON: No exams were available for comparison FINDINGS: BONES: No acute fracture is present. No bony destructive lesion is seen. JOINTS: The ankle mortise is normally aligned. SOFT TISSUE: Normal. IMPRESSION: Unremarkable radiographs of the right ankle. Findings were discussed with the emergency department on the date of the examination. DATA REPOSITORY: RADIATION DOSE DELIVERED:
[2020-06-09 09:03] VITALS: BP 122/71; PULSE 93; RESP 16; TEMP 36.8; O2SAT 99
--- NOTE | 2020-06-09 09:05 | W.ED.GENAD ---
Discharge Plan Disposition Patient Disposition: HOME Condition: Stable Discharge Details Chief Complaint: Orthopedic Clinical Impression: Contusion of foot, right Primary Care Provider: Yadira Churchill ED Provider: Barbie Nance Discharge Instructions Instructions: Foot Contusion (ED) Additional Instructions: Rest, ice, and elevate the affected area as much as possible. Alternate tylenol and motrin as needed and directed for pain. Follow up with your primary care doctor in 1 week as needed and for referral to orthopedics if your symptoms do not improve or worsen. Return to the emergency department with any worsening or new concerning symptoms. Referrals: Roberto Phillips MD [ [facility] STAFF PHYSICIAN] - Discharge Data Discharge Date/Time-TO BE ENTERED AT DEPARTURE: 06/09/20 10:25 Discharge Physician: Barbie Nance Medical Decision Making 24-year-old female presents with right foot pain after hit against a wood pillar at home last night. She has tenderness palpation on the plantar surface and arch of the foot in addition to the right medial malleolus and right fifth metatarsal. No deformities. Neurovascular intact. No open wounds. Urine test negative. Will refer for right foot and ankle x-ray and give a dose of ibuprofen. X-rays negative. Patient expressed concern with weightbearing due to pain on plantar surface of foot. She had an Hu wrap placed and given orthopedic shoe. She was given orthopedic follow-up information if needed. Usual and customary return precautions given prior to discharge. Medical Records Medical records reviewed: Yes I reviewed the patient's medical records. Imaging Data Radiologic Study: Radiologist's impression: XR FOOT RT COMPLETE CLINICAL HISTORY: trauma. TECHNIQUE: 2D digital imaging was performed. COMPARISON: No priors for comparison FINDINGS: BONES: No acute fracture is present. No bony destructive lesion is seen. JOINTS: No dislocation present. SOFT TISSUE: Normal. IMPRESSION: No acute fracture or dislocation. HPI General Mode of arrival: ambulatory. Date/Time Provider Initiated Documentation: 06/09/20 08:58. Limitations to Documentation: no limitations. Information obtained by: patient. HPI Narrative: Patient is a 24-year-old female presents with right foot pain after she hit the bottom of her foot against a wooden pillar while chasing her cat last night. She states she has been favoring walking on the outside of her foot and now is having pain in this location as well. Related Data Allergies Allergy/AdvReac Type Severity Reaction Status Date / Time codeine AdvReac Intermediate very sick Unverified 05/04/20 15:25 General SELVIN: 2 Review of Systems All systems reviewed & are unremarkable except as noted in HPI and below PFSH Medical History (Updated 06/09/20 @ 09:53 by Barbie Nance DO) Community acquired pneumonia (Resolved) IUD surveillance (Resolved) Miscarriage (Resolved) 09/2017 at 10 weeks EGA Surgical History (Updated 05/04/20 @ 15:34 by Aarti Montaño CLAIM TECHNICIAN) H/O dilation and curettage (Resolved) 09/2017 for SAB at 10 weeks estimated gestational age. [facility]. Family History Grandmother Breast cancer Social History (Updated 08/02/18 @ 22:59 by Corazon Holland MD) Smoking/Tobacco Use Status: Former Tobacco Use Alcohol Intake: current Drug use: Never Substance use type: marijuana Household members: spouse, children and other Details: Perla BAÑUELOS [facility] 2016 Number of Children: 1 Joceline/Protestant: Voodoo Do you feel safe at home: Yes Do you feel safe in your relationship?: Yes Female Reproductive History Menstrual control method: progestin IUCD (inserted today Mirena IUD Lot# [id number] EXP 08/2021) History History 3 Para 2 Hx # Term Pregnancies 2 Multiple births 0 Hx # Pregnancies 0 Ectopic pregnancies 0 AB induced 0 Hx Number of Living Children 2 AB spontaneous 1 Past Pregnancies Del. Date GA/Weeks # Outcome Route Wgt Sex Labor Lgth Anesthesia Location Prov [facility] 10/09/14 41 No Successful vaginal 3.147 kg Female 9 hrs [facility] 10/10/16 10 No Unsuccessful 11/29/18 No Successful vaginal 3.206 kg Female Anea Lelong Delivery Date: 10/09/14 daughter named Perla 2014, IOL for post dates. Neva Kaiser Delivery Date: 10/10/16 No notes to display Delivery Date: 11/29/18 No notes to display Exam Const General: cooperative, healthy appearing and no acute distress HENMT Head: normal to inspection Mouth: oral mucosae normal Eyes General: appearance normal, both eyes and all related structures Neck Neck: normal visual inspection Resp Effort & Inspection: normal respiratory effort and able to speak in complete sentences Cardio Rate: regular rate Skin General skin exam: no rashes or lesions noted Neuro General: patient alert, patient awake and patient oriented x3 Motor: muscle tone normal throughout Extrem Ankle/foot/toe images: 1. Minimal ecchymoses and moderate edema and tenderness to palpation. No open wounds. No deformity or crepitus. No erythema. 2. Tenderness to palpation L 5th metatarsal. No edema, ecchymoses, deformity. 3. Tenderness to palpation overlying R medial malleolus. No edema, ecchymoses, erythema, open wounds or deformity. Other: R DP/PT pulses intact. Psych Appearance: grossly normal Affect: normal affect
[2020-06-09] MEDS: Ibuprofen 600 MG TAB PO (10:21)
== END 2020-06-09 10:25 | disposition home or self-care (01) ==
PROVIDERS: Emergency Provider Physician Assistant; PCP Family Medicine
DX: S90.31XA Contusion of right foot, initial encounter (principal); M25.571 Pain in right ankle and joints of right foot; W22.09XA Striking against other stationary object, initial encounter
CPT/HCPCS: 81025; 99284; 73610; 73630; 99283

== ENCOUNTER 2020-07-16 12:50 | Emergency (ER) | payer MEDICAID, SELFPAY ==
[2020-07-16 12:58] VITALS: BP 108/67; PULSE 81; RESP 16; TEMP 36.5; O2SAT 99
--- NOTE | 2020-07-16 13:10 | W.ED.GENAD ---
Discharge Plan Disposition Patient Disposition: HOME Condition: Stable Discharge Details Clinical Impression: Costochondritis Primary Care Provider: Yadira Churchill ED Provider: Caren Pinedo Home Meds and New Rx's Prescriptions: No Action prenat.vits,susan,[id number] Tablet 1 tab PO DAILY RF: 0 promethazine 25 mg tablet 25 mg PO Q4H PRN PRN (Reason: nausea and vomiting) Qty: 30 RF: 2 Discharge Instructions Instructions: Costochondritis (ED), Chest Wall Pain (ED) Additional Instructions: Follow up with primary care provider in 3-5 days. Return to ED sooner if any worsening or concerns. Increase oral fluids. Please take Tylenol with food every 4-6 hours as needed for pain and swelling. At this time your chest x-ray is within normal limits, no lung abnormality or bony abnormality noted. Alternate ice and heat to area. May take Tylenol every 4-6 hours as needed for pain. Return to the ED for shortness of breath, fast heart rate, worsening pain or any concerns. Referrals: Yadira Churchill [Primary Care Provider] - Discharge Data Discharge Date/Time-TO BE ENTERED AT DEPARTURE: 07/16/20 14:28 Medical Decision Making 24-year-old female presents to the ED with chief complaint of right sided chest wall pain which has been ongoing for the last 3 weeks. Patient has pinpoint tenderness noted just distal to her right clavicle. She denies any recent trauma, no associated shortness of breath, no coughing. Patient is 9 weeks she is G4, P2 Ab1. She has not taken any medication for this prior to arrival. EXAM: XR CHEST 2V PA LATERAL CLINICAL HISTORY: Right upper chest wall pain TECHNIQUE: 2D digital imaging was performed. COMPARISON: CR XR CHEST 2V PA LATERAL from 06/20/2018 FINDINGS: The heart is not enlarged. The lungs are clear and well expanded. No pleural effusion seen. Mediastinal contours appear intact. IMPRESSION: Normal chest Patient was given some Tylenol here in department, chest x-ray which was within normal limits. Differential includes limited to musculoskeletal strain, costochondritis, PE, pneumonia, tendinitis. Patient requested a sling prior to discharge, sling ordered, instructed to alternate ice and heat, take Tylenol as needed. Instructed to follow-up with PCP or return to the ED for any worsening. Patient verbalized understanding. HPI General Mode of arrival: ambulatory. Date/Time Provider Initiated Documentation: 07/16/20 12:51. Limitations to Documentation: no limitations. Information obtained by: patient. HPI Narrative: 24-year-old female presents to the ED with chief complaint of right sided chest wall pain which has been ongoing for the last 3 weeks. Patient has pinpoint tenderness noted just distal to her right clavicle. She denies any recent trauma, no associated shortness of breath, no coughing. Patient is 9 weeks she is G4, P2 Ab1. She has not taken any medication for this prior to arrival. Related Data Home Medications Medication Instructions Recorded Confirmed prenat.vits,susan,[id number] 1 tab PO DAILY 06/24/20 07/16/20 promethazine 25 mg tablet 25 mg PO Q4H PRN PRN #30 tab 07/08/20 07/16/20 Previous Rx's Medication Instructions Recorded promethazine 25 mg tablet 25 mg PO Q4H PRN PRN #30 tab 07/08/20 Allergies Allergy/AdvReac Type Severity Reaction Status Date / Time codeine AdvReac Intermediate very sick Unverified 07/16/20 13:01 General Stated Complaint: Chest/Rib SELVIN: 4 Review of Systems Narrative: Constitutional: Negative for weight loss, alert and oriented, well groomed, normal body habitus, appears comfortable. HEENT: Denies trauma, headaches, blurry vision, nasal discharge, sore throat, trouble swallowing. Chest: Denies palpitations, irregular rhythm, hypertension. Reports anterior chest wall pain pinpoint tender with palpation. Respiratory: Denies Shortness of breath, cough, hemoptysis. GI: Denies abdominal pain, nausea, vomiting, diarrhea, constipation. : Denies dysuria, hematuria, flank pain, rectal bleeding. Neuro: Denies dizziness, blurry vision, weakness, syncope, headache or facial numbness. Hematologic: Denies easy bruising, intolerance to heat or cold, hair loss. [facility] Medical History (Updated 07/16/20 @ 14:10 by Caren Pinedo) Community acquired pneumonia Miscarriage 09/2017 at 10 weeks EGA Surgical History (Updated 05/04/20 @ 15:34 by Aarti Montaño NP) H/O dilation and curettage 09/2017 for SAB at 10 weeks estimated gestational age. [facility]. Family History Grandmother Breast cancer Social History (Updated 08/02/18 @ 22:59 by Corazon Holland MD) Smoking/Tobacco Use Status: Former Tobacco Use Alcohol Intake: former Drug use: Never Details: prior to , drank ETOH and used marijuana Household members: spouse, children and other Details: Perla BAÑUELOS [facility] 2016 Number of Children: 1 Joceline/Adventism: Hinduism Do you feel safe at home: Yes Do you feel safe in your relationship?: Yes Female Reproductive History Menstrual control method: progestin IUCD (inserted today Mirena IUD Lot# [id number] EXP 08/2021) History History 4 Para 2 Hx # Term Pregnancies 2 Multiple births 0 Hx # Pregnancies 0 Ectopic pregnancies 0 AB induced 0 Hx Number of Living Children 2 AB spontaneous 1 Past Pregnancies Del. Date GA/Weeks # Outcome Route Wgt Sex Labor Lgth Anesthesia Location [facility] 10/09/14 41 No Successful vaginal 3146.797 g Female 9 hrs [facility] 10/10/16 10 No Unsuccessful 11/29/18 No Successful vaginal 3206.331 g Female Anea Lelong Delivery Date: 10/09/14 daughter named Perla 2014, IOL for post dates. Neva Kaiser Delivery Date: 10/10/16 No notes to display Delivery Date: 11/29/18 No notes to display Exam Narrative Exam Narrative: Constitutional: Alert and oriented x3. Appears stated age. Normal body habitus. Head: Normocephalic, no trauma. Eyes: Pupils PERRLA, Red reflex noted, EOM's intact. Eyelids symmetrical without lesions, discharge, or swelling. ENT: Bilateral TM's WNL, External ear normal to inspection, no mastoid TTP, swelling, or erythema, Nasal turbinates WNL, no nasal discharge. Normal dentition, Posterior pharynx WNL, no exudate. Chest: RRR, Normal S1, S2, distal pulses intact. Resp: Lungs clear to auscultation bilaterally, no wheezes, rales, or rhonchi. Musculoskeletal: Normal gait, 5/5 strength to all four extremities. Skin: No suspicious rashes or lesions. Capillary refill less than 2 sec. Neurologic: Cranial nerves II-XII intact. Alert and oriented x 3. DTR's intact. Hematologic/Lymphatic: No ecchymosis, no lymphadenopathy. Course Vital Signs Vital signs: Vital Signs Temperature 36.5 C 07/16/20 12:58 Pulse 81 07/16/20 12:58 Respiratory Rate 16 07/16/20 12:58 Blood Pressure 108/67 07/16/20 12:58 Pulse Oximetry 99 07/16/20 12:58 Temperature 36.5 C 07/16/20 12:58 Temperature Source Skin 07/16/20 12:58 Pulse 81 07/16/20 12:58 Respiratory Rate 16 07/16/20 12:58 Respiratory Effort Non-Labored 07/16/20 13:00 Blood Pressure 108/67 07/16/20 12:58 Blood Pressure Position Sitting 07/16/20 12:58 Pulse Oximetry 99 07/16/20 12:58 Oxygen Delivery Method Room Air 07/16/20 12:58 Oxygen Flow Rate 0 07/16/20 12:58 Pain Level 6 07/16/20 12:58
[2020-07-16] MEDS: Acetaminophen 500 MG TAB PO (13:28)
--- NOTE | 2020-07-16 13:30 | DI.RAD_ITS ---
EXAM: XR CHEST 2V PA LATERAL CLINICAL HISTORY: Right upper chest wall pain TECHNIQUE: 2D digital imaging was performed. COMPARISON: CR XR CHEST 2V PA LATERAL from 06/20/2018 FINDINGS: The heart is not enlarged. The lungs are clear and well expanded. No pleural effusion seen. Mediastin al contours appear intact. IMPRESSION: Normal chest RADIATION DOSE DELIVERED: Total DLP
== END 2020-07-16 14:28 | disposition home or self-care (01) ==
PROVIDERS: Emergency Provider Registered Nurse Emergency; PCP Family Medicine
DX: O99.891 Other specified diseases and conditions complicating pregnancy (principal); M94.0 Chondrocostal junction syndrome [Tietze]; Z3A.09 9 weeks gestation of pregnancy
CPT/HCPCS: 99283; 71046; L3650

== ENCOUNTER 2020-08-10 03:18 | Outpatient (CLI) | payer MEDICAID, SELFPAY ==
[2020-08-10 10:58] LABS: Abs Immature Grans 0.03 10^3/uL (0.0-0.06); Absolute Eosinophil Count 0.21 10^3/uL (0.0-0.7); Absolute Lymphocyte Count 1.76 10^3/uL (1.2-3.4); Basophils % 0.3; Eosinophils % 1.8; HCT 39.5 % (36.0-46.0); HGB 13.3 g/dL (11.2-15.7); Immature Grans % 0.3; Lymphocytes % 14.8; MCH 29.8 pg (27.0-33.0); MCHC 33.7 % (32.0-36.0); MCV 88.4 fL (80-95); MPV 8.7 fL (8.0-11.0); Monocytes % 7.1; Neutrophils % 75.7; Nucleated RBC 0 %; Platelet Count 299 10^3/uL (130-400); RBC 4.47 10^6/uL (3.93-5.22); RDW 13.1 % (11.7-14.6); RDW-SD 42.2 fL; WBC 11.91 10^3/uL (4.4-10.8)
[2020-08-10 11:00] LABS: Absolute Basophil Count 0.04 10^3/uL (0.0-0.2); Absolute Monocyte Count 0.85 10^3/uL (0.1-0.8); Absolute Neutrophil Count 9.02 10^3/uL (1.2-6.7)
[2020-08-11 15:54] LABS: Syphilis Total Ab w/Reflex Nonreactive (Nonreactive)
[2020-08-12 16:12] LABS: HIV-1/2 Ag & Ab Screen Negative (Negative)
[2020-08-12 16:13] LABS: Hepatitis B Surface Ag Negative (Negative); Hepatitis C Ab w Rflx HCV PCR Negative (Negative)
[2020-08-13 10:51] LABS: Rubella IgG Ab (UVM) Positive; Varicella IgG Antibody Positive
== END 2020-08-10 03:38 ==
PROVIDERS: Advanced Practice Midwife; PCP Family Medicine; Visit Provider Advanced Practice Midwife
DX: Z34.91 Encounter for supervision of normal pregnancy, unspecified, first trimester (principal); Z11.4 Encounter for screening for human immunodeficiency virus [HIV]; Z11.59 Encounter for screening for other viral diseases; Z01.84 Encounter for antibody response examination
CPT/HCPCS: 36415; 86787; 86803; 86850; 86900; 86901; 87340; 87389; 84443; 85025; 86762; 86780

== ENCOUNTER 2020-08-10 11:07 | Outpatient (REF) | payer MEDICAID, SELFPAY ==
--- NOTE | 2020-08-10 10:05 | PAPFT_PTH ---
PATIENT: Evita Garcia LOC: [facility] U#:[id number] AGE/SX: 25/F ROOM: RE08/10/[address]: Juliette Rees RN : 1995 BED: DIS: 08/10/2020 SPEC #: [id number] RECD: 08/10/20 12:49 STATUS: RAYMUNDO REQ #: [id number] MICHELLE: 08/10/20 10:[address]: Juliette Rees DEPT: [facility] Cytology RECD BY: Kortney Mullins ENTERED: 08/10/20 12:50 SP TYPE: PAPFT OTHR DR: Yadira Churchill Tissues: 1 - CX/ENDOCX FOR PAP SMEARS Procedures: PAP THIN PREP/[facility] Screening Comments: [id number] ([id number] [facility]
[2020-08-10 14:19] LABS: *AMPHETAMINES SCREEN URINE Negative (Negative); *BARBITURATES SCREEN URINE Negative (Negative); *BENZODIAZEPINES SCREEN URINE Negative (Negative); Cannabinoids THC Negative (Negative); Cocaine Screen,Urine Negative (Negative); METHADONE URINE SCREEN Negative (Negative); OPIATES URINE SCREEN Negative (Negative)
[2020-08-10 14:29] LABS: Tricyclic Antidepressants Negative (Negative)
[2020-08-12 13:07] LABS: Chlamydia Result Negative (Negative)
[2020-08-12 13:09] LABS: GC Result Negative (Negative)
[2020-08-13 15:18] LABS: Buprenorphine Negative; Norbuprenorphine Negative
== END 2020-08-10 11:27 ==
LOC: LBN 11:07
PROVIDERS: PCP Family Medicine; Visit Provider Advanced Practice Midwife
DX: Z87.42 Personal history of other diseases of the female genital tract (principal); Z34.91 Encounter for supervision of normal pregnancy, unspecified, first trimester; Z12.4 Encounter for screening for malignant neoplasm of cervix
CPT/HCPCS: 80307; 87491; 87591; 88142; 87086

== ENCOUNTER 2020-09-21 01:08 | Outpatient (CLI) | payer MEDICAID, SELFPAY ==
--- NOTE | 2020-09-21 06:45 | DI.US_ITS ---
EXAM: US OB 2-3 TRIMESTER CLINICAL HISTORY: routine pnc,z34.90. TECHNIQUE: Transabdominal obstetrical ultrasound was performed. COMPARISON: US US ABDOMEN from 08/15/2018 FINDINGS: There is a single viable intrauterine gestation with cardiac activity identified-145 bpm. Amniotic fluid: There is a normal amount of amniotic fluid.. Placental location: The placenta is anterior grade 0,with no evidence of placenta previa. ANATOMY: A 3 vessel umbilical cord is seen. A four-chamber cardiac view was obtained. Right and left ventricular outflow tracts were imaged. There are no obvious abnormalities of the spinal column evident. Also no obvious abnormality o f the anterior abdominal wall. stomach and urinary bladder are identified and there is n o evidence of hydronephrosis. No abnormalities of the upper lip region are identified. No evidence of choroid plexus cysts i n the brain. Dating parameters place this at approximately 18 weeks gestational age. BPD measures 17 weeks and 1 day HC measures 18 weeks and 1 day AC measures 18 weeks and 1 day FL measures 18 weeks and 4 Estimated weight is 234 gm-0 pounds 8 ounces Fetus is at the 38th percentile on the Hadlock scale. IMPRESSION:: Single viable intrauterine gestation which is approximately 18 weeks gestational age, i mplying an MERLENE of February 22, 2021. There are no obvious anomalies evident on today's study. The placenta is anterior with no evidence of placenta previa. There is a normal amount of amniotic fluid. DATA REPOSITORY:
== END 2020-09-21 01:28 ==
PROVIDERS: PCP Family Medicine; Visit Provider Advanced Practice Midwife
DX: Z34.92 Encounter for supervision of normal pregnancy, unspecified, second trimester (principal)
CPT/HCPCS: 76805

== ENCOUNTER 2020-12-16 03:59 | Outpatient (CLI) | payer MEDICAID, SELFPAY ==
[2020-12-16 14:12] LABS: Glucose,1 Hr (Glucola) 101 mg/dL (80-140)
[2020-12-16 14:13] LABS: Absolute Basophil Count 0.07 10^3/uL (0.0-0.2); Absolute Eosinophil Count 0.28 10^3/uL (0.0-0.7); Absolute Lymphocyte Count 1.95 10^3/uL (1.2-3.4); Absolute Monocyte Count 1.07 10^3/uL (0.1-0.8); Absolute Neutrophil Count 10.57 10^3/uL (1.2-6.7); Basophils % 0.5; HCT 36.9 % (36.0-46.0); HGB 12.2 g/dL (11.2-15.7); Immature Grans % 0.7; Lymphocytes % 13.9; MCH 29.8 pg (27.0-33.0); MCHC 33.1 % (32.0-36.0); MCV 90.2 fL (80-95); MPV 9.4 fL (8.0-11.0); Monocytes % 7.6; Neutrophils % 75.3; Nucleated RBC 0 %; Platelet Count 297 10^3/uL (130-400); RBC 4.09 10^6/uL (3.93-5.22); RDW 12.7 % (11.7-14.6); RDW-SD 42.4 fL; WBC 14.04 10^3/uL (4.4-10.8)
== END 2020-12-16 04:00 | disposition home or self-care (01) ==
LOC: LBO 03:59
PROVIDERS: PCP Family Medicine; Visit Provider Obstetrics & Gynecology
DX: Z34.93 Encounter for supervision of normal pregnancy, unspecified, third trimester (principal); Z3A.30 30 weeks gestation of pregnancy
CPT/HCPCS: 36415; 82950; 85025

== ENCOUNTER 2021-01-12 09:25 | Outpatient (CLI) | payer MEDICAID, SELFPAY ==
[2021-01-13 18:01] LABS: COVID-19 RT-PCR UVMMC Result Negative (Negative)
== END 2021-01-12 09:26 | disposition home or self-care (01) ==
PROVIDERS: PCP Family Medicine; Visit Provider Obstetrics & Gynecology
DX: Z20.822 Contact with and (suspected) exposure to COVID-19 (principal)
CPT/HCPCS: U0003

== ENCOUNTER 2021-01-15 16:47 | Outpatient (REF) | payer MEDICAID, SELFPAY ==
[2021-01-15 18:00] LABS: *AMPHETAMINES SCREEN URINE Negative (Negative); *BARBITURATES SCREEN URINE Negative (Negative); *BENZODIAZEPINES SCREEN URINE Negative (Negative); Cannabinoids THC Negative (Negative); Cocaine Screen,Urine Negative (Negative); METHADONE URINE SCREEN Negative (Negative); OPIATES URINE SCREEN Negative (Negative)
[2021-01-15 18:05] LABS: Tricyclic Antidepressants Negative (Negative)
[2021-01-21 08:48] LABS: Buprenorphine Negative ng/mL (Cutoff: 5.0); Norbuprenorphine Negative ng/mL (Cutoff: 2.5)
== END 2021-01-15 16:48 | disposition home or self-care (01) ==
LOC: LBN 16:47
PROVIDERS: PCP Family Medicine; Visit Provider Obstetrics & Gynecology Gynecology
DX: Z34.93 Encounter for supervision of normal pregnancy, unspecified, third trimester (principal)
CPT/HCPCS: 80307; 87081

== ENCOUNTER 2021-02-22 09:22 | Outpatient (CLI) | payer MEDICAID, SELFPAY ==
[2021-02-22 10:02] VITALS: BP 111/69; PULSE 88; TEMP 36.6
[2021-02-22 10:32] VITALS: BP 111/69; PULSE 88
--- NOTE | 2021-03-04 08:22 | W.OBNST ---
Date of service: 02/22/21 Time of Service: 08:23 NST Evaluation Reason for NST Reasons for Nonstress Test: POSTDATES Gestational Age Gestational Age in Weeks and Days: 40 Weeks and 6Days Test and Monitor Explained Test/Monitor Explained: Test Explained, Monitor Explained and Patient Verbalized Understanding Vital Signs Blood Pressure: 111/69 Pulse: 88 Temperature: 97.9 F NST Information Date on Monitor: 02/22/21 Time on Monitor: 10:07 Date off Monitor: 02/22/21 Time off Monitor: 10:35 Total Time on Monitor: 28 NST Interventions: None NST Evaluation Patient States Movement: Present FHR Baseline: 120 Variability: Moderate 6-25 bpm Accelerations: 15x15 Decelerations: None NST Results: Reactive Note NST Note Note: Category 1 NST NST Reviewed and Verified by: Lashawn Rebolledo
[2021-03-04 08:23] VITALS: BP 111/69; PULSE 88; TEMP 36.6
== END 2021-02-22 10:55 | disposition home or self-care (01) ==
LOC: BCD 09:27 → OBS 09:33
PROVIDERS: PCP Family Medicine; Visit Provider Obstetrics & Gynecology
DX: O48.0 Post-term pregnancy (principal); Z3A.40 40 weeks gestation of pregnancy
CPT/HCPCS: 59025

== ENCOUNTER 2021-02-25 08:40 | Outpatient (CLI) | payer MEDICAID, SELFPAY ==
[2021-02-25 08:47] VITALS: BP 124/81; PULSE 100; TEMP 36.7
[2021-02-25 08:49] VITALS: BP 124/81; PULSE 100
--- NOTE | 2021-02-25 10:51 | W.OBNST ---
Date of service: 02/25/21 Time of Service: 10:52 NST Evaluation Reason for NST Reasons for Nonstress Test: POSTDATES Gestational Age Gestational Age in Weeks and Days: 40 Weeks and 6Days Test and Monitor Explained Test/Monitor Explained: Test Explained, Monitor Explained and Patient Verbalized Understanding Vital Signs Blood Pressure: 124/81 Pulse: 100 Temperature: 98.1 F NST Information Date on Monitor: 02/25/21 Time on Monitor: 08:34 Date off Monitor: 02/25/21 Time off Monitor: 09:37 Total Time on Monitor: 63 NST Interventions: None NST Evaluation Patient States Movement: Present FHR Baseline: 120 Variability: Moderate 6-25 bpm Accelerations: 15x15 Decelerations: None NST Results: Reactive Note NST Note Note: Reactive NST. The plan at this time is to have patient return for cervical ripening depending. NST Reviewed and Verified by: Corazon Holland
[2021-02-25 10:52] VITALS: BP 124/81; PULSE 100; TEMP 36.7
== END 2021-02-25 09:40 | disposition home or self-care (01) ==
LOC: BCD 08:41 → OBS 08:45
PROVIDERS: PCP Family Medicine; Visit Provider Obstetrics & Gynecology Gynecology
DX: O48.0 Post-term pregnancy (principal); Z3A.40 40 weeks gestation of pregnancy
CPT/HCPCS: 59025

== ENCOUNTER 2021-02-25 18:26 | Inpatient (IN) | payer MEDICAID, SELFPAY ==
[2021-02-25 18:17] VITALS: BP 120/64; PULSE 108
--- NOTE | 2021-02-25 19:32 | HPE_ITS ---
Date of service: 02/25/21 Time of Service: 19:56 Assessment and Plan Assessment and plan (1) : Status: Acute Qualifiers: Weeks of gestation: 41 weeks Qualified Code(s): Z3A.41 - 41 weeks gestation of (2) Encounter for induction of labor: Start date: 02/25/21 Start time: 19:00 Status: Acute Assessment and plan: Toth balloon catheter placed per crossbow maker's recommendations. Well nancy by pt. 80cc NS instilled in uterine balloon and 30cc instilled in cervical balloon. Verbal consent for care obtained. I reviewed plan of care: will begin Oxytocin infusion per protocol in am. (3) Post-dates : Status: Acute OB-HPI Labor/Delivery History of Present Illness Chief Complaint: Scheduled Induction of Labor Indication for Induction: Post Date (40w6d EGA). MERLENE Calculator Estimated Delivery Date Method Current WG Current Estimate 02/19/21 Ultrasound #1 40w 6d Other Estimates 02/09/21 LMP (Certain) 42w 2d History of Present Expected Delivery Route/Plan - FOB - Marito Marshall Specific Issues/Plan 1. PA for CF carrier screen not required, SMA not covered, PA for [place] waived. 1a. Pt indicated at dating sono appt she does not desires [place] screen 2. History of LGSIL pap , Atypical granular cells noted on pap 08/2020 - per consult with Dr.s Holland and Amaury, will schedule colpo post . Review of Systems Constitutional Constitutional: Reports system reviewed and no additional complaints, except as documented and Reports other (uterine contractions. Episodic.) Cardiovascular Cardiovascular: Reports system reviewed and no additional complaints, except as documented Respiratory Respiratory: Reports system reviewed and no additional complaints, except as documented Gastrointestinal Gastrointestinal: Reports system reviewed and no additional complaints, except as documented Genitourinary Genitourinary: Reports vaginal discharge (mucus.) Psychiatric Psychiatric: Reports system reviewed and no additional complaints, except as documented PENDING SALE TO [facility] Medical History (Updated 02/25/21 @ 19:52 by Corazon Holland MD) Anxiety during in third trimester, antepartum Community acquired pneumonia Low grade squamous intraepithelial lesion (LGSIL) at risk for high grade squamous intraepithelial lesion (HGSIL) on cytologic smear of cervix Miscarriage 09/2017 at 10 weeks EGA Surgical History H/O dilation and curettage 09/2017 for SAB at 10 weeks estimated gestational age. [facility]. Family History Grandmother Breast cancer Social History (Updated 02/25/21 @ 19:47 by Corazon Holland MD) Smoking/Tobacco Use Status: Former Tobacco Use Smoking risk assessment performed?: Yes Alcohol Intake: former Drug use: Never Details: prior to , drank ETOH and used marijuana Household members: spouse, children and other Details: BlakeWesJohn. 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 Date GA/Weeks # Outcome Route Wgt Sex Labor Lgth Anesthes ia Location [facility] 10/09/14 41 No Successful vaginal 6 lb 15 oz Female 9 hrs [facility] 10/10/16 10 No Unsuccessful 11/29/18 No Successful vaginal 7 lb 1.1 oz Female [place] [facility] Delivery Date: 10/09/14 daughter named Perla 2014, IOL for post dates. Neva Kaiser Delivery Date: 10/10/16 No notes to display Delivery Date: 11/29/18 No notes to display Meds Allergies and Home Medications Allergies Allergy/AdvReac Type Severity Reaction Status Date / Time codeine Allergy Severe Swelling/Ed Unverified 02/25/21 18:29 rahul Home Medications Medication Instructions Recorded Confirmed Type prenat.vits,susan,plf-uagg-qqgcs 1 tab PO DAILY 06/24/20 02/25/21 History citalopram 20 mg tablet 20 mg PO DAILY #90 tab 01/01/21 02/25/21 Rx Exam Physical Exam Vital signs: Pulse BP 108 H 120/64 02/25/21 18:17 02/25/21 18:17 Detailed Labor and Delivery Exam Robertson Score: Cervical Points Exam 0 1 2 3 Dilation Closed 1-2cm 3-4 cm 5-6cm Effacement 0-30% 40-50% 60-70% 80% Consistency Firm Medium Soft Station -3 -2 -1,0 +1,+2 Position Posterior Mid Anterior Fetus A Heart Rate Baseline: 160 Monitor Accelerations: 15 X 15 Monitor Decelerations: None Variability: Moderate (6-25 BPM) Presentation: Cephalic Categories: Category I Est. Weight: 3500 lb Neck Exam Neck Exam: Normal Respiratory Exam Respiratory Exam: Normal Cardiovascular Exam Cardiovascular Exam: Normal Abdominal Exam Abdominal Exam: Normal Rectal Exam Rectal Exam: Not Done Exam Exam: Normal (as documented above) Extremities Exam Extremities Exam: Normal Back/Spine/Pelvis Exam Pelvis Adequate: Yes Skin Exam Skin Exam: Normal Neurological Exam Neurological Exam: Normal Psychiatric Exam Psychiatric Exam: Normal Results Results Group Beta Strep: Negative Blood Type: AB+ Rubella Status: Immune Varicella Immunity: Immune Additional Findings Results: Covid 19: Neg 01/15/2021. Risk Assessment Risk for Shoulder Dystocia Historical/Initial OB: NEGATIVE FOR: Pelvic Abnormality, Pre- BMI>30, Previous Shoulder Dystocia or Previous Macrosomia 40 Weeks: NEGATIVE FOR: EFW> 4500 gms or Maternal Weight Gain >40lb Counselin08/10/20 low risk al Risk for Pre-Eclampsia Date Initiated/Initials: 08/10/20 iob al Yes, if one or more: NEGATIVE FOR: Hx Pre-E/Gest HTN, Chronic HTN, Multiple Gestation, Pre-gestational DM, Renal Disease, Systemic Lupus or APA Syndrome Yes, if 2 or more: NEGATIVE FOR: Nulliparity, Age>= 35 yrs, >10yr btwn pregnancies, BMI>30, ethinicty, Mother/Sister w/ Pre-E or Previous IUGR Risk for Post- Hemorrhage Initial: NEGATIVE FOR: Multiple Gestation, Previous PPH, Known Clotting Deficiency, Grand Multiparity or Anticoagulation Risks Reviewed Risks Reviewed Upon Admission: Yes
[2021-02-25 19:47] VITALS: BP 120/64; PULSE 108; RESP 18; TEMP 36.5
[2021-02-25 19:50] LABS: HCT 36.4 % (36.0-46.0); HGB 11.9 g/dL (11.2-15.7); MCH 28.7 pg (27.0-33.0); MCHC 32.7 % (32.0-36.0); MCV 87.9 fL (80-95); MPV 9.5 fL (8.0-11.0); Platelet Count 300 10^3/uL (130-400); RBC 4.14 10^6/uL (3.93-5.22); RDW 13.2 % (11.7-14.6); RDW-SD 41.4 fL; WBC 12.78 10^3/uL (4.4-10.8)
[2021-02-25 21:09] VITALS: BP 111/72; PULSE 84; RESP 16; TEMP 36.7
[2021-02-25 22:00] LABS: Source Nasal/Nares
[2021-02-25 22:41] LABS: COVID-19 PCR Negative (Negative)
[2021-02-25 23:14] VITALS: BP 109/74; PULSE 84; RESP 16; O2SAT 98
[2021-02-26] VITALS (8 sets, daily range): BP systolic 110–134; BP diastolic 65–74; PULSE 64–103; RESP 16; TEMP 36.6–37; O2SAT 99–100
--- NOTE | 2021-02-26 01:30 | OBVDS_ITS ---
Date of service: 02/26/21 Time of Service: 01:49 OB Labor/ Delivery Information Baby A Delivery Delivery Method: Spontaneaous Presentation: Cephalic Cephalic Position: Vertex Vertex Position: Right Occipital Anterior Breech Position: N/A Cord Description-Baby A: 3 Vessels Cord Description Comment: nl in appearance Amniotic Fluid: Clear Estimated Blood Loss: 100 Delivery Outcome: Liveborn Transferred: Remains with Mother Note: Pt reported increasing contraction discomfort to RN who preformed a SVE and removed marcum catheter with inflated balloons. Complete cervical dilation. Pt was given Nitrous Oxide for labor analgesia. CNM was called to room to attend delivery however MD arrived just as pt had begun maternal expulsive efforts and CNM left room. Brief interval before viable female delivered over intact perineum and placed on mother's abdomen. Cord doubly clamped and cut. Her parents intend to name her Paisyn. Providers Doctor: Corazon Holland Nurse Injection Molding Machine Tender: Sydnee Allen Nurse: Paulie Montague Nurse: Gely Landrum Labor/Delivery Information Number of Babies in Womb: 1 Steroids Given: None Reason Steroids Not Administered: N/A Group Beta Strep: Negative Antibiotics Administered: No Rubella Status: Immune Blood Type: AB+ Varicella Immunity: Immune Medication in Delivery: oxytocin 10 units IM after delivery of , prior to clamping of cord Maternal Complications: Precipitous Labor(<3hrs) Shoulder Dystocia: No Stages of Labor Complete Dilatation Date: 02/26/21 Complete Dilatation Time: 00:50 ROM Baby A: 02/26/21 ROM Baby A: 01:00 ROM Total Time- Baby A: [id number] Infant Delivery Date-Baby A: 02/26/21 Delivery Time-Baby A: 01:03 Labor Stage 2 Duration: 13 minutes Placenta Delivery Date-Baby A: 02/26/21 Placenta Delivery Time-Baby A: 01:13 Labor-Stage 3 Duration: 10 minutes Placenta Cultured: No Placenta Status: Delivered Baby A Gender: Female Gestational Status: Term (39-41.6 wks) Gestational Age in Weeks/Days: 41 Weeks and 0 Days Score-1 Minute Interval(Baby A) Heart Rate-1 minute: 100 BPM or Greater Respiratory Effort- 1 minute: Spontaneous/Strong Cry Muscle Tone-1 minute: Active Movement Reflex Response-1 minute: Prompt Response Color-1 minute: Bluish Hands or Feet Total Score-1 minute: 9 Score-5 Minute Interval(Baby A) Heart Rate- 5 minute: 100 BPM or Greater Respiratory Effort-5 minute: Spontaneous/Strong Cry Muscle Tone-5 minute: Active Movement Reflex Response-5 minute: Prompt Response Color-5 minute: Bluish Hands or Feet Total Score- 5 minute: 9 Interventions Pain Management Interventions: Nitrous Oxide (administered for ~ 10min prior to .) , Well tolerated by patient. .
[2021-02-26] MEDS: Acetaminophen 325 MG TAB 650 MG PO ×2 (03:19→08:30)
[2021-02-26] MEDS: Ibuprofen 600 MG TAB PO ×2 (03:19→08:31)
--- NOTE | 2021-02-26 08:03 | DSE_ITS ---
Documented by User: Corazon Holland MD 02/26/21 08:44 Date of service: 02/26/21 Time of Service: 08:04 DS: Diagnosis Discharge Diagnosis (1) : Status: Acute (2) Encounter for induction of labor: Status: Acute (3) Post-dates : Status: Acute (4) Vaginal delivery: Status: Acute Discharge Plan Disposition Condition: Good Discharge Details Reason For Visit: IUP at 40w6d EGA Admit Date/Time: 02/25/21 19:26 Admit Provider: Corazon Holland Attending Provider: Corazon Holland Primary Care Provider: Yadira Churchill Hospital Course Hospital Course: Patient was admitted to the center at 40 weeks 6 days EGA for a postdates induction. She received a Toth balloon catheter for cervical ripening the evening of 02/25/2021 which resulted in complete cervical dilatation and spontaneous vaginal delivery of a viable female infant at approximately 0100 on 02/26/2021. weight 2955 g Apgars 8/9. She will be named Donna. course was uncomplicated. She was discharged on PPD#1. Her only concerns on discharge was her sore tailbone. She has an appointment to follow-up with Dr. Holland approximately 1 week for check. She plans to use a Mirena IUD for contraception. Home Meds and New Rx's Prescriptions: No Action KPN Tablet 1 tab PO DAILY RF: 0 citalopram [Celexa] 20 mg tablet 20 mg PO DAILY Qty: 90 RF: 0 Discharge Instructions Additional Instructions: Take [id number] ibuprofen 3 tablets of 200 mg dose for a total of 600 mg every 6 hours as needed for pain along with acetaminophen every 6 hours as needed for pain. We will monitor for a Stand Alone Forms: BC Instructions, BC Post Vaginal Deliver Activity:: Activity as Tolerated Equipment/Supplies:: No Equipment Needed Diet:: As Tolerated OB:DS Summary Summary Vaginal Delivery Method: Spontaneaous [place] Gender-Baby A: Female weight: 6 lb 8.235 oz Exam Physical Exam Vital signs: Temp Pulse Resp BP Pulse Ox 97.9 F 64 16 117/74 100 02/26/21 03:51 02/26/21 03:51 02/26/21 03:51 02/26/21 03:51 02/26/21 03:51 Vital Signs Reviewed: Yes Narrative: Patient was admitted to the center at 40 weeks 6 days EGA for a postdates induction. She received a Toth balloon catheter for cervical ripening the evening of 02/25/2021 which resulted in complete cervical dilatation and spontaneous vaginal delivery of a viable female infant at approximately 0100 on 02/26/2021. weight 2955 g Apgars 8/9. She will be named Donna. course was uncomplicated. She desires to be discharged to home prior to 24 hours , pending approval by pediatrics. Constitutional Constitutional: no acute distress Neck Exam Neck Exam: Normal Respiratory Exam Respiratory Exam: Normal Cardiovascular Exam Cardiovascular Exam: Normal Abdominal Exam Abdomen: Tender Comments: To palpation at fundus Fundal Exam Fundus: Below Umbilicus Rectal Exam Rectal Exam: Hemmorhoids Extremities Exam Extremity Exam: Normal Back/Spine/Pelvis Exam Back Exam: Normal (Patient had coccyx pain at time of delivery, that is since resolved) Skin Exam Skin Exam: Normal Psychiatric Exam Psychiatric Exam: Normal [facility] Medical History (Updated 02/26/21 @ 08:22 by Corazon Holland MD) Anxiety during in third trimester, antepartum Community acquired pneumonia Low grade squamous intraepithelial lesion (LGSIL) at risk for high grade squamous intraepithelial lesion (HGSIL) on cytologic smear of cervix Miscarriage 09/2017 at 10 weeks EGA Surgical History H/O dilation and curettage 09/2017 for SAB at 10 weeks estimated gestational age. [facility]. 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 Date GA/Weeks # Outcome Route Wgt Sex Labor Lgth Anesthes ia Location [facility] 10/09/14 41 No Successful vaginal 6 lb 15 oz Female 9 hrs [facility] 10/10/16 10 No Unsuccessful 11/29/18 No Successful vaginal 7 lb 1.1 oz Female Anea L[place] Delivery Date: 10/09/14 daughter named Perla 2014, IOL for post dates. Neva Kaiser Delivery Date: 10/10/16 No notes to display Delivery Date: 11/29/18 No notes to display DS: Data Vitals/I&O Vitals and I&O: Vital Signs Temperature 97.9 F 02/26/21 03:51 Pulse 64 02/26/21 03:51 Respiratory Rate 16 02/26/21 03:51 Respiratory Depth Normal 02/25/21 23:32 Blood Pressure 117/74 02/26/21 03:51 Blood Pressure Mean 88 02/26/21 03:51 Pulse Oximetry 100 02/26/21 03:51 Oxygen Delivery Method Room Air 02/25/21 19:47 Oxygen Flow Rate 0 02/25/21 19:47 Pain Level 4 02/26/21 03:19 Intake & Output 02/25/21 02/25/21 02/26/21 11:59 23:59 11:59 Output Total 100 / 100 Balance -100 / -100 Weight 160 lb Output: Urine 100 / 100 Other: Urine Color Yellow Data Completed and Pending Labs on day of discharge: Labs from last 24 hours 02/25/21 02/25/21 02/25/21 21:45 19:41 19:41 WBC 12.78 H RBC 4.14 Hgb 11.9 Hct 36.4 MCV 87.9 MCH 28.7 MCHC 32.7 RDW 13.2 Plt Count 300 MPV 9.5 COVID-19 Source Nasal/nares SARS-CoV-2 (PCR) Negative Patient ABO/Rh AB Positive Antibody Screen Negative Documented by User: Patricia Dominguez MD 02/27/21 09:44 Discharge Plan Disposition Condition: Good Discharge Details Reason For Visit: IUP at 40w6d EGA Admit Date/Time: 02/25/21 19:26 Admit Provider: Corazon Holland Attending Provider: Corazon Holland Primary Care Provider: Yadira Churchill Hospital Course Hospital Course: Patient was admitted to the center at 40 weeks 6 days EGA for a postdates induction. She received a Toth balloon catheter for cervical ripening the evening of 02/25/2021 which resulted in complete cervical dilatation and spontaneous vaginal delivery of a viable female infant at approximately 0100 on 02/26/2021. weight 2955 g Apgars 8/9. She will be named Donna. course was uncomplicated. She was discharged on PPD#1. Her only concerns on discharge was her sore tailbone. She has an appointment to follow-up with Dr. Holland approximately 1 week for check. She plans to use a Mirena IUD for contraception. Home Meds and New Rx's Prescriptions: No Action KPN Tablet 1 tab PO DAILY RF: 0 citalopram [Celexa] 20 mg tablet 20 mg PO DAILY Qty: 90 RF: 0 Discharge Instructions Additional Instructions: Take [id number]-[id number] ibuprofen 3 tablets of 200 mg dose for a total of 600 mg every 6 hours as needed for pain along with acetaminophen every 6 hours as needed for pain. We will monitor for a Stand Alone Forms: BC Instructions, BC Post Vaginal Deliver Activity:: Activity as Tolerated Equipment/Supplies:: No Equipment Needed Diet:: As Tolerated OB:DS Summary Contraception Discussed Contraception Discussed: Yes Contraceptive Plan: IUD, Status at Discharge Functional status at discharge: independent ambulation Overall status at discharge: patient is back to baseline Mental Status: mental status grossly normal Speech and Movement: speech and movement normal Mood: congruent mood Affect: normal affect [facility] Medical History (Updated 02/26/21 @ 08:22 by Corazon Holland MD) Anxiety during in third trimester, antepartum Community acquired pneumonia Low grade squamous intraepithelial lesion (LGSIL) at risk for high grade squamous intraepithelial lesion (HGSIL) on cytologic smear of cervix Miscarriage 09/2017 at 10 weeks EGA Surgical History H/O dilation and curettage 09/2017 for SAB at 10 weeks estimated gestational age. [facility]. 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 Date GA/Weeks # Outcome Route Wgt Sex Labor Lgth Anesthes ia Location [facility] 10/09/14 41 No Successful vaginal 6 lb 15 oz Female 9 hrs [facility] 10/10/16 10 No Unsuccessful 11/29/18 No Successful vaginal 7 lb 1.1 oz Female Juliette Rees Delivery Date: 10/09/14 daughter named Perla 2014, IOL for post dates. Neav Kaiser Delivery Date: 10/10/16 No notes to display Delivery Date: 11/29/18 No notes to display
[2021-02-26] MEDS: Citalopram 20 MG TAB PO (08:27)
[2021-02-26] MEDS: Prenatal Multivitamin w/CA,FE TAB 1 TAB PO (08:27)
--- NOTE | 2021-02-26 09:13 | OBPPV_ITS ---
Date of service: 02/26/21 Time of Service: 09:13 Assessment and Plan Assessment and plan (1) Vaginal delivery: Status: Acute Subjective Subjective Patient comments: No complaints Patient's Mood: Good [place] baby status: Nursing well and Rooming in [place] feeding status: Exclusively breast feeding Exam Physical Exam Vital signs: Temp Pulse Resp BP Pulse Ox 97.9 F 64 16 117/74 100 02/26/21 03:51 02/26/21 03:51 02/26/21 03:51 02/26/21 03:51 02/26/21 03:51 Constitutional Constitutional: no acute distress HEENT Exam HEENT Exam: Not Done Neck Exam Neck Exam: Normal Respiratory Exam Respiratory Exam: Normal Cardiovascular Exam Cardiovascular Exam: Normal Abdominal Exam Comments: Normal Fundal Exam Fundus: Below Umbilicus Rectal Exam Rectal Exam: Not Done Extremities Exam Extremity Exam: Normal Back/Spine/Pelvis Exam Back Exam: Normal Skin Exam Skin Exam: Normal Neurological Exam Neurological Exam: Not Done Psychiatric Exam Psychiatric Exam: Normal Results Hemoglobin/Hematocrit: Hgb 11.9 g/dL (11.2-15.7) 02/25/21 19:41 Hct 36.4 % (36.0-46.0) 02/25/21 19:41 Abnormal Lab Findings: Abnormal Labs 02/25/21 19:41 WBC 12.78 H
[2021-02-27] MEDS: Ibuprofen 600 MG TAB PO (06:21)
[2021-02-27] MEDS: Acetaminophen 325 MG TAB 650 MG PO (06:21)
[2021-02-27 07:45] VITALS: BP 107/51; PULSE 75; RESP 14; TEMP 37.1
--- NOTE | 2021-02-27 09:44 | W.PM.OBPNV1 ---
Date of service: 02/27/21 Time of Service: 09:44 Assessment and Plan Assessment and plan (1) Vaginal delivery: Status: Acute Assessment and plan: 25 yo P3 ppd#1 s/p at term doing very well desires discharge home. -Tailbone pain discussed -IUD planned for contraception -Pt understands where and how to follow-up Subjective Subjective Patient comments: No complaints and Pain well controlled [place] baby status: Doing well, Nursing well and Strong Bonding Observed Narrative: Evita is doing well and has no concerns, her bleeding is light and she's breast feeding well. She desires discharge home today. Exam Physical Exam Vital signs: Temp Pulse Resp BP Pulse Ox 98.8 F 75 14 107/51 L 99 02/27/21 07:45 02/27/21 07:45 02/27/21 07:45 02/27/21 07:45 02/26/21 20:30 Additional findings Additional findings: Gen: Alert and Oriented x 3, pleasant well groomed and in no distress Thyroid: no masses or enlargement palpated CV: RRR, no murmers Lungs: clear to auscultation bilaterally Abdomen:soft/nt/nd, no rebound, no guarding, fundus firm and non-tender Extremities: No edema Results Hemoglobin/Hematocrit: Hgb 11.9 g/dL (11.2-15.7) 02/25/21 19:41 Hct 36.4 % (36.0-46.0) 02/25/21 19:41 Abnormal Lab Findings: Abnormal Labs 02/25/21 19:41 WBC 12.78 H
== END 2021-02-27 11:15 | disposition home or self-care (01) | DRG 807 ==
PROVIDERS: Admitting Provider Obstetrics & Gynecology Gynecology; PCP Family Medicine; Visit Provider Obstetrics & Gynecology Gynecology
DX: O48.0 Post-term pregnancy (principal); Z37.0 Single live birth; Z3A.41 41 weeks gestation of pregnancy; O62.3 Precipitate labor; O99.344 Other mental disorders complicating childbirth; F41.9 Anxiety disorder, unspecified
CPT/HCPCS: 85027; 86850; 86900; 86901; 87635

== ENCOUNTER 2021-05-03 14:17 | Outpatient (REF) | payer MEDICAID, SELFPAY ==
[2021-05-03 13:33] LABS: Abs Immature Grans 0.02 10^3/uL (0.0-0.06); Absolute Basophil Count 0.08 10^3/uL (0.0-0.2); Absolute Eosinophil Count 0.29 10^3/uL (0.0-0.7); Absolute Lymphocyte Count 2.35 10^3/uL (1.2-3.4); Absolute Monocyte Count 0.75 10^3/uL (0.1-0.8); Absolute Neutrophil Count 5.23 10^3/uL (1.2-6.7); Basophils % 0.9; Eosinophils % 3.3; HCT 39.7 % (36.0-46.0); HGB 12.7 g/dL (11.2-15.7); Immature Grans % 0.2; Lymphocytes % 26.9; MCV 87.6 fL (80-95); MPV 9.3 fL (8.0-11.0); Monocytes % 8.6; Neutrophils % 60.1; Nucleated RBC 0 %; Platelet Count 350 10^3/uL (130-400); RBC 4.53 10^6/uL (3.93-5.22); RDW 13.9 % (11.7-14.6); RDW-SD 44.9 fL; WBC 8.72 10^3/uL (4.4-10.8)
[2021-05-03 14:00] LABS: ALT 31 U/L (14-59); AST 17 U/L (15-37); Albumin 3.9 g/dL (3.4-5.0); Alkaline Phosphatase 82 U/L (46-116); Anion Gap 10.1 mmol/L (3-11); BUN 16 mg/dL (7-18); Bilirubin, Total 0.3 mg/dL (0.2-1.0); CO2 24.9 mmol/L (21.0-32.0); CREATININE 0.8 mg/dL (0.55-1.02); Calcium 9.5 mg/dL (8.5-10.1); Chloride 108 mmol/L (98-107); Glucose 99 mg/dL (74-106); Potassium 4.1 mmol/L (3.5-5.1); Sodium 143 mmol/L (136-145); Total Protein 7.3 g/dL (6.4-8.2)
[2021-05-03 14:34] LABS: Hemoglobin A1C 5.3 % (<5.7)
== END 2021-05-03 14:18 | disposition home or self-care (01) ==
LOC: LBN 14:17
PROVIDERS: PCP Family Medicine; Visit Provider Nurse Practitioner Family
DX: R55 Syncope and collapse (principal)
CPT/HCPCS: 80053; 83036; 85025

== ENCOUNTER 2022-07-21 08:28 | Emergency (ER) | payer MEDICAID, SELFPAY ==
[2022-07-21 08:42] VITALS: BP 113/68; PULSE 84; RESP 17; TEMP 36.6; O2SAT 99
[2022-07-21] MEDS: Lactated Ringers 1,000 ML 1000 ML IV (09:01)
[2022-07-21] MEDS: Ondansetron 4 MG/2 ML VIAL IVP (09:02)
[2022-07-21 09:03] LABS: Abs Immature Grans 0.02 10^3/uL (0.0-0.06); Absolute Basophil Count 0.04 10^3/uL (0.0-0.2); Absolute Eosinophil Count 0.05 10^3/uL (0.0-0.7); Absolute Lymphocyte Count 1.39 10^3/uL (1.2-3.4); Absolute Monocyte Count 1.38 10^3/uL (0.1-0.8); Absolute Neutrophil Count 5.37 10^3/uL (1.2-6.7); Basophils % 0.5; Eosinophils % 0.6; HCT 41.8 % (36.0-46.0); HGB 13.7 g/dL (11.2-15.7); Immature Grans % 0.2; Lymphocytes % 16.8; MCH 28.7 pg (27.0-33.0); MCHC 32.8 % (32.0-36.0); MCV 88 fL (80-95); MPV 8.5 fL (8.0-11.0); Monocytes % 16.7; Neutrophils % 65.2; Platelet Count 284 10^3/uL (130-400); RBC 4.77 10^6/uL (3.93-5.22); RDW-SD 42.2 fL; WBC 8.25 10^3/uL (4.4-10.8)
[2022-07-21 09:29] LABS: ALT 521 U/L (14-59); AST 279 U/L (15-37); Albumin 3.8 g/dL (3.4-5.0); Alkaline Phosphatase 190 U/L (46-116); Anion Gap 10.4 mmol/L (3-11); BUN 8 mg/dL (7-18); Bilirubin, Total 0.3 mg/dL (0.2-1.0); CO2 22.6 mmol/L (21.0-32.0); CREATININE 0.7 mg/dL (0.55-1.02); Calcium 8.6 mg/dL (8.5-10.1); Chloride 101 mmol/L (98-107); Estimated GFR 119.99 (mL/min/1.73m2); Glucose 75 mg/dL (74-106); Lipase 46 U/L (73-393); Potassium 3.5 mmol/L (3.5-5.1); Sodium 134 mmol/L (136-145); Total Protein 7.8 g/dL (6.4-8.2)
[2022-07-21 10:03] LABS: Lipase 52 U/L (73-393); Magnesium 2.3 mg/dL (1.8-2.4)
[2022-07-21 10:46] LABS: Bilirubin Negative (Negative); Blood Negative (Negative); Clarity Sl Cloudy (Clear); Glucose Negative (Negative); Ketones 80 mg/dL (Negative); Leukocyte Esterase Negative (Negative); Nitrite Negative (Negative); Specific Gravity >= 1.030 (1.005-1.025); Urobilinogen 0.2 EU/dL (Up TO 0.2)
[2022-07-21 10:59] LABS: Bacteria Rare HPF (Negative); C & S Indicated? No; Casts 0-2 Hyaline LPF (Negative); Crystals Negative HPF (Negative); Epithelial Cells Many HPF (Negative); Mucus Trace (Negative); RBC Negative HPF (0-2); WBC Negative HPF (0-5)
--- NOTE | 2022-07-21 12:00 | ED.GENADUL_ITS ---
Discharge Plan Disposition Patient Disposition: HOME Condition: Stable Discharge Details Clinical Impression: , COVID-19, Nausea & vomiting Primary Care Provider: Yadira Churchill ED Provider: Li Prasad Home Meds and New Rx's Prescriptions: Continued prenat.vits,susan,ksz-zfht-stcat Tablet 1 tab PO DAILY Discharge Instructions Instructions: (ED), Acute Nausea and Vomiting (ED), Viral Syndrome (ED) Additional Instructions: Take Zofran as needed for nausea and vomiting You have declined packed liver, this is a medication to a short course of the severity of your illness Make sure you isolate for 6 days in your home and after that you may wear a mask if you leave your home Follow-up regarding your liver enzymes, they are quite elevated and will need close outpatient reassessment, please let Dr. Zaman know Referrals: Yadira Churchill [Primary Care Provider] - 1 day Discharge Data Discharge Date/Time-TO BE ENTERED AT DEPARTURE: 07/21/22 12:25 Medical Decision Making discussed with Dr Jorgensen regarding elevated lft's, they are quite elevated and will need to be rechecked closely She has no abdominal tenderness this is reassuring She is feeling marked improvement and adamantly declines taking Paxil event, she is aware of the risk associated with declining She is fully alert, oriented, of decisional capacity She is aware that she needs to have her LFTs rechecked and she does have an appointment scheduled with Dr. Holland next week She is given antiemetics for home Return precautions discussed and patient expressed understanding Medical Records Medical records reviewed: Yes I reviewed the patient's medical records. Lab Data Lab results reviewed: Yes I reviewed the patient's lab results. HPI General Date/Time Provider Initiated Documentation: 07/21/22 08:29 . HPI Narrative: This 27-year-old female who is 7 weeks presents with diagnosis of COVID-19 yesterday. She presents secondary to nausea and vomiting. Denies any abdominal discomfort. She denies any pain complaints or shortness of breath. She denies any fever today or chills. She states she is having trouble keeping fluids down which concerned her with her . She denies any vaginal bleeding. Related Data Home Medications Medication Instructions Recorded Confirmed prenat.vits,susan,vce-fzks-[id number] 1 tab PO DAILY 07/15/22 07/15/22 Allergies Allergy/AdvReac Type Severity Reaction Status Date / Time codeine Allergy Severe Swelling/Ed Verified 07/15/22 08:34 rahul General Stated Complaint: Nausea/Vomit/Diar SELVIN: 3 Review of Systems All systems reviewed & are unremarkable except as noted in HPI and below PFSH All Active Problems (Updated 07/21/22 @ 12:03 by MAVIS Rasmussen) COVID-19 (Acute) Nausea & vomiting (Acute) confirmed by positive urine test (Acute) Shoulder pain, right (Acute) (Acute) Medical History (Updated 07/21/22 @ 12:03 by MAVIS Rasmussen) Anxiety during in third trimester, antepartum Atypical 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 Colposcopy scheduled May, Low grade squamous intraepithelial lesion (LGSIL) at risk for high grade squamous intraepithelial lesion (HGSIL) on cytologic smear of cervix Miscarriage 09/2017 at 10 weeks EGA No-show for appointment Post-dates Vaginal delivery 02/26/2021. F. 2955gm. 8/9. Paisyn Surgical History H/O dilation and curettage 09/2017 for SAB at 10 weeks estimated gestational age. [facility]. Family History Grandmother No problems noted. 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 Date GA/Weeks # Preg Succ Route Wgt Sex Labor Lgth Anesth esia Location Prov Compl 10/09/14 41 No vaginal 3146.797 g Female 9 hrs [facility] 10/10/16 10 No 11/29/18 No vaginal 3206.331 g Female 5 [place] [facility] [place] 02/27/21 40 No vaginal 2948.35 g Female 1 hour [place] Delivery Date: 10/09/14 Last Updated by: Neva Kaiser daughter named Perla 2014, IOL for post dates. Delivery Date: 11/29/18 Last Updated by: Sydnee Allen CNM [facility] Delivery Date: 02/27/21 Last Updated by: Sydnee Allen CNM marcum bulb induction, Paisyn Exam Const General: cooperative, comfortable and no acute distress Orientation: alert and oriented x3 HENMT Other: moist mucous membranes Eyes Sclera: sclerae normal Resp Effort & Inspection: normal respiratory effort Auscultation: clear to auscultation bilaterally Cardio Rate: regular rate Rhythm: regular rhythm GI Inspection: normal to inspection Other: non-tender abdominal exam Specifically no right upper quadrant tenderness or lower tenderness Skin General skin exam: no rashes or lesions noted Neuro General: patient alert and patient oriented x3 Course Vital Signs Vital signs: Vital Signs Temperature 36.6 C 07/21/22 08:42 Pulse 84 07/21/22 08:42 Respiratory Rate 17 07/21/22 08:42 Blood Pressure 113/68 07/21/22 08:42 Pulse Oximetry 99 07/21/22 08:42 Temperature 36.6 C 07/21/22 08:42 Temperature Source Temporal Artery Scan 07/21/22 08:42 Pulse 84 07/21/22 08:42 Respiratory Rate 17 07/21/22 08:42 Respiratory Effort Non-Labored 07/21/22 08:45 Blood Pressure 113/68 07/21/22 08:42 Blood Pressure Position Sitting 07/21/22 08:42 Pulse Oximetry 99 07/21/22 08:42 Oxygen Delivery Method Room Air 07/21/22 08:42 Oxygen Flow Rate 0 10/13/22 08:42 Pain Level 0 07/21/22 08:42 Lab/Test Results Lab/Test Results: Laboratory Tests Range/Units 07/21/22 07/21/22 07/21/22 08:55 08:55 08:55 WBC (4.4-10.8) 10^3/uL 8.25 RBC (3.93-5.22) 10^6/uL 4.77 Hgb (11.2-15.7) g/dL 13.7 Hct (36.0-46.0) % 41.8 MCV (80-95) fL 88 MCH (27.0-33.0) pg 28.7 MCHC (32.0-36.0) % 32.8 RDW (11.7-14.6) % 13.0 Plt Count (130-400) 10^3/uL 284 MPV (8.0-11.0) fL 8.5 Immature Gran % 0.2 Neutrophils % 65.2 Lymphocytes % 16.8 Monocytes % 16.7 Eosinophils % 0.6 Basophils % 0.5 Nucleated RBC % (0.0-0.3) % 0.0 Absolute Neutrophils (1.2-6.7) 10^3/uL 5.37 Absolute Lymphocytes (1.2-3.4) 10^3/uL 1.39 Absolute Monocytes (0.1-0.8) 10^3/uL 1.38 H Absolute Eosinophils (0.0-0.7) 10^3/uL 0.05 Absolute Basophils (0.0-0.2) 10^3/uL 0.04 Sodium (136-145) mmol/L 134 L Potassium (3.5-5.1) mmol/L 3.5 Chloride (98-107) mmol/L 101 Carbon Dioxide (21.0-32.0) mmol/L 22.6 Anion Gap (3-11) mmol/L 10.4 BUN (7-18) mg/dL 8 Creatinine (0.55-1.02) mg/dL 0.7 Est GFR (CKD-EPI 2020) (mL/min/1.73m2) 119.99 Glucose (74-106) mg/dL 75 Calcium (8.5-10.1) mg/dL 8.6 Magnesium (1.8-2.4) mg/dL 2.3 Total Bilirubin (0.2-1.0) mg/dL 0.3 AST (15-37) U/L 279 H ALT (14-59) U/L 521 H Alkaline Phosphatase (46-116) U/L 190 H Total Protein (6.4-8.2) g/dL 7.8 Albumin (3.4-5.0) g/dL 3.8 Lipase (73-393) U/L 46 52 Urine Color (Yellow) Urine Clarity (Clear) Urine pH (5-8) Ur Specific [place] (1.005-1.025) Urine Protein (Negative) mg/dL Urine Ketones (Negative) mg/dL Urine Blood (Negative) Urine Nitrite (Negative) Urine Bilirubin (Negative) Urine Urobilinogen (Up TO 0.2) EU/dL Ur Leukocyte Esterase (Negative) Urine RBC (0-2) HPF Urine WBC (0-5) HPF Ur Epithelial Cells (Negative) HPF Urine Crystals (Negative) HPF Urine Bacteria (Negative) HPF Urine Casts (Negative) LPF Urine Mucus (Negative) Ur Culture Indicated? Urine Glucose (Negative) mg/dL Range/Units 07/21/22 10:32 WBC (4.4-10.8) 10^3/uL RBC (3.93-5.22) 10^6/uL Hgb (11.2-15.7) g/dL Hct (36.0-46.0) % MCV (80-95) fL MCH (27.0-33.0) pg MCHC (32.0-36.0) % RDW (11.7-14.6) % Plt Count (130-400) 10^3/uL MPV (8.0-11.0) fL Immature Gran % Neutrophils % Lymphocytes % Monocytes % Eosinophils % Basophils % Nucleated RBC % (0.0-0.3) % Absolute Neutrophils (1.2-6.7) 10^3/uL Absolute Lymphocytes (1.2-3.4) 10^3/uL Absolute Monocytes (0.1-0.8) 10^3/uL Absolute Eosinophils (0.0-0.7) 10^3/uL Absolute Basophils (0.0-0.2) 10^3/uL Sodium (136-145) mmol/L Potassium (3.5-5.1) mmol/L Chloride (98-107) mmol/L Carbon Dioxide (21.0-32.0) mmol/L Anion Gap (3-11) mmol/L BUN (7-18) mg/dL Creatinine (0.55-1.02) mg/dL Est GFR (CKD-EPI 2020) (mL/min/1.73m2) Glucose (74-106) mg/dL Calcium (8.5-10.1) mg/dL Magnesium (1.8-2.4) mg/dL Total Bilirubin (0.2-1.0) mg/dL AST (15-37) U/L ALT (14-59) U/L Alkaline Phosphatase (46-116) U/L Total Protein (6.4-8.2) g/dL Albumin (3.4-5.0) g/dL Lipase (73-393) U/L Urine Color (Yellow) Yellow Urine Clarity (Clear) Sl Cloudy Urine pH (5-8) 6.0 Ur Specific [place] (1.005-1.025) >= 1.030 H Urine Protein (Negative) mg/dL 30 H Urine Ketones (Negative) mg/dL 80 H Urine Blood (Negative) Negative Urine Nitrite (Negative) Negative Urine Bilirubin (Negative) Negative Urine Urobilinogen (Up TO 0.2) EU/dL 0.2 Ur Leukocyte Esterase (Negative) Negative Urine RBC (0-2) HPF Negative Urine WBC (0-5) HPF Negative Ur Epithelial Cells (Negative) HPF Many Urine Crystals (Negative) HPF Negative Urine Bacteria (Negative) HPF Rare Urine Casts (Negative) LPF 0-2 Hyaline Urine Mucus (Negative) Trace Ur Culture Indicated? No Urine Glucose (Negative) mg/dL Negative
[2022-07-22 10:39] LABS: Hepatitis A Antibody IgM Negative (Negative); Hepatitis B Core Antibody Negative (Negative); Hepatitis B surface Ag Negative (Negative); Hepatitis C Ab w Rflx HCV PCR Negative (Negative)
== END 2022-07-21 12:25 | disposition home or self-care (01) ==
PROVIDERS: Emergency Provider Physician Assistant; PCP Family Medicine
DX: O21.9 Vomiting of pregnancy, unspecified (principal); O98.511 Other viral diseases complicating pregnancy, first trimester; U07.1 COVID-19; Z3A.01 Less than 8 weeks gestation of pregnancy; O99.891 Other specified diseases and conditions complicating pregnancy; R79.89 Other specified abnormal findings of blood chemistry
CPT/HCPCS: 80053; 83690; 86704; 86709; 86803; 87340; 96361; 96374; 99284; 81003; 81015; 83735; 85025; 99283; J2405

== ENCOUNTER 2022-08-09 16:05 | Outpatient (REF) | payer MEDICAID, SELFPAY ==
[2022-08-09 20:31] LABS: ALT 87 U/L (14-59); AST 26 U/L (15-37); Albumin 3.4 g/dL (3.4-5.0); Alkaline Phosphatase 83 U/L (46-116); Anion Gap 8.2 mmol/L (3-11); BUN 15 mg/dL (7-18); Bilirubin, Total 0.2 mg/dL (0.2-1.0); CO2 26.8 mmol/L (21.0-32.0); CREATININE 0.8 mg/dL (0.55-1.02); Calcium 8.9 mg/dL (8.5-10.1); Chloride 103 mmol/L (98-107); Estimated GFR 102.22 (mL/min/1.73m2); Glucose 83 mg/dL (74-106); Potassium 3.8 mmol/L (3.5-5.1); Sodium 138 mmol/L (136-145); Total Protein 7.2 g/dL (6.4-8.2)
== END 2022-08-09 16:06 | disposition home or self-care (01) ==
LOC: NCHCN 16:05
PROVIDERS: PCP Nurse Practitioner Family; Visit Provider Nurse Practitioner Family
DX: R74.8 Abnormal levels of other serum enzymes (principal)
CPT/HCPCS: 80053

== ENCOUNTER 2022-09-05 03:12 | Outpatient (CLI) | payer MEDICAID, SELFPAY ==
[2022-09-05 10:00] LABS: Panorama Kit Sent via Fed Ex
[2022-09-05 10:09] LABS: Abs Immature Grans 0.05 10^3/uL (0.0-0.06); Absolute Basophil Count 0.07 10^3/uL (0.0-0.2); Absolute Eosinophil Count 0.18 10^3/uL (0.0-0.7); Absolute Lymphocyte Count 1.94 10^3/uL (1.2-3.4); Absolute Monocyte Count 0.65 10^3/uL (0.1-0.8); Absolute Neutrophil Count 8.47 10^3/uL (1.2-6.7); Basophils % 0.6; Eosinophils % 1.6; HCT 37.8 % (36.0-46.0); HGB 12.5 g/dL (11.2-15.7); Immature Grans % 0.4; Lymphocytes % 17.1; MCH 29.3 pg (27.0-33.0); MCHC 33.1 % (32.0-36.0); MCV 89 fL (80-95); MPV 8.9 fL (8.0-11.0); Monocytes % 5.7; Neutrophils % 74.6; Platelet Count 292 10^3/uL (130-400); RBC 4.26 10^6/uL (3.93-5.22); RDW 13.2 % (11.7-14.6); RDW-SD 43.1 fL; WBC 11.36 10^3/uL (4.4-10.8)
[2022-09-06 08:34] LABS: Hepatitis B Surface Ag Negative (Negative)
[2022-09-06 09:22] LABS: Hepatitis C Ab w Rflx HCV PCR Negative (Negative)
[2022-09-06 10:01] LABS: HIV-1/2 Ag & Ab Screen Negative (Negative)
[2022-09-06 10:57] LABS: Varicella IgG Antibody Positive (See Note)
[2022-09-06 11:16] LABS: Rubella IgG Ab (UVM) Positive (See Note)
[2022-09-06 19:02] LABS: Syphilis IgG w/Reflex Nonreactive (Nonreactive)
== END 2022-09-05 03:13 | disposition home or self-care (01) ==
LOC: LBO 03:12
PROVIDERS: Advanced Practice Midwife; PCP Nurse Practitioner Family; Visit Provider Advanced Practice Midwife
DX: Z34.91 Encounter for supervision of normal pregnancy, unspecified, first trimester (principal); Z36.89 Encounter for other specified antenatal screening; Z3A.12 12 weeks gestation of pregnancy
CPT/HCPCS: 36415; 86787; 86803; 86850; 86900; 86901; 87340; 87389; 85025; 86762; 86780

== ENCOUNTER 2022-09-05 09:51 | Outpatient (REF) | payer MEDICAID, SELFPAY ==
--- NOTE | 2022-09-05 09:10 | PAPFT_PTH ---
PATIENT: Evita Garcia LOC: [facility] U#:[id number] AGE/SX: 27/F ROOM: RE09/05/[address]: Sydnee Allen CNM : 1995 BED: DIS: 09/05/2022 SPEC #: [id number] RECD: 09/05/22 12:46 STATUS: RAYMUNDO REQ #: [id number] MICHELLE: 09/05/22 09:[address]: Sydnee Allen DEPT: [facility] Cytology RECD BY: Li Phoenix ENTERED: 09/05/22 12:46 SP TYPE: PAPFT OTHR DR: Flores Cabrera Tissues: 1 - CX/ENDOCX FOR PAP SMEARS Procedures: PAP THIN PREP/UVM Screening HPV DNA PROBE Comments: [id number]
[2022-09-05 11:37] LABS: *AMPHETAMINES SCREEN URINE Negative (Negative); *BARBITURATES SCREEN URINE Negative (Negative); *BENZODIAZEPINES SCREEN URINE Negative (Negative); Cannabinoids THC Negative (Negative); Cocaine Screen,Urine Negative (Negative); METHADONE URINE SCREEN Negative (Negative); OPIATES URINE SCREEN Negative (Negative)
[2022-09-05 11:38] LABS: Tricyclic Antidepressants Negative (Negative)
[2022-09-06 13:59] LABS: Chlamydia Result Negative (Negative); GC Result Negative (Negative)
[2022-09-08 11:09] LABS: Buprenorphine Negative ng/mL (Cutoff: 5.0); Norbuprenorphine Negative ng/mL (Cutoff: 2.5)
== END 2022-09-05 09:52 | disposition home or self-care (01) ==
LOC: LBN 09:51
PROVIDERS: PCP Nurse Practitioner Family; Visit Provider Advanced Practice Midwife
DX: Z34.91 Encounter for supervision of normal pregnancy, unspecified, first trimester (principal); R87.611 Atypical squamous cells cannot exclude high grade squamous intraepithelial lesion on cytologic smear of cervix (ASC-H); Z12.4 Encounter for screening for malignant neoplasm of cervix; R87.810 Cervical high risk human papillomavirus (HPV) DNA test positive; Z11.51 Encounter for screening for human papillomavirus (HPV)
CPT/HCPCS: 80307; 80348; 87491; 87591; 88142; 87086; 87624

== ENCOUNTER 2022-11-07 02:16 | Outpatient (CLI) | payer MEDICAID, SELFPAY ==
--- NOTE | 2022-11-07 08:00 | DI.US_ITS ---
Exam(s) US OB 2-3 TRIMESTER EXAM: US OB 2-3 TRIMESTER CLINICAL HISTORY: anatomy,Z34.92. TECHNIQUE: Transabdominal obstetrical ultrasound performed. COMPARISON: US US OB 2-3 TRIMESTER from 09/21/2020 FINDINGS: Number of fetuses: 1 position: Cephalic heart rate: 155bpm Placental location: There is a grade 1 anterior placenta. No evidence of previa. Amniotic fluid index: Amount of fluid is within normal limits. ANATOMICAL SURVEY: Within normal limits. BIOMETRIC DATA: BPD: 5.01cm, 21weeks 1day HC: 18.86cm, 21weeks 1day AC: 15.85cm, 21weeks FL: 3.61cm, 21weeks 3days Cisterna magna: 2.8mm Cerebellum: 2.1cm EFW: 405.56g, 0.89lb, 47% Composite Age: 21weeks 1day MERLENE: 03/19/2023 Heart Rate: 155bpm IMPRESSION: 1. Single live intrauterine gestation as above. 2. Normal anatomic survey. DATA REPOSITORY:
== END 2023-02-25 18:40 ==
LOC: DI 02:16 → OBS 02-25 18:32
PROVIDERS: PCP Nurse Practitioner Family; Visit Provider Advanced Practice Midwife
DX: Z34.92 Encounter for supervision of normal pregnancy, unspecified, second trimester (principal); Z3A.21 21 weeks gestation of pregnancy
CPT/HCPCS: 76805

== ENCOUNTER 2022-12-27 02:46 | Outpatient (CLI) | payer MEDICAID, SELFPAY ==
[2022-12-27 11:05] LABS: Abs Immature Grans 0.13 10^3/uL (0.0-0.06); Absolute Basophil Count 0.06 10^3/uL (0.0-0.2); Absolute Monocyte Count 0.93 10^3/uL (0.1-0.8); Basophils % 0.5; Eosinophils % 1.3; HCT 35.6 % (36.0-46.0); HGB 11.9 g/dL (11.2-15.7); Lymphocytes % 17.3; MCH 29.5 pg (27.0-33.0); MCHC 33.4 % (32.0-36.0); MCV 88 fL (80-95); MPV 8.9 fL (8.0-11.0); Monocytes % 7.3; Neutrophils % 72.6; Platelet Count 289 10^3/uL (130-400); RBC 4.03 10^6/uL (3.93-5.22); RDW 12.5 % (11.7-14.6); RDW-SD 40.6 fL; WBC 12.73 10^3/uL (4.4-10.8)
[2022-12-27 11:07] LABS: Absolute Eosinophil Count 0.17 10^3/uL (0.0-0.7); Absolute Neutrophil Count 9.24 10^3/uL (1.2-6.7)
[2022-12-27 13:07] LABS: Glucose,1 Hr (Glucola) 107 mg/dL (80-140)
== END 2022-12-27 02:47 | disposition home or self-care (01) ==
LOC: LBO 02:46
PROVIDERS: Obstetrics & Gynecology; PCP Nurse Practitioner Family; Visit Provider Obstetrics & Gynecology Gynecology
DX: Z34.93 Encounter for supervision of normal pregnancy, unspecified, third trimester (principal); Z3A.28 28 weeks gestation of pregnancy
CPT/HCPCS: 36415; 82950; 85025

== ENCOUNTER 2023-02-21 14:18 | Outpatient (REF) | payer MEDICAID, SELFPAY ==
[2023-02-21 16:15] LABS: *AMPHETAMINES SCREEN URINE Negative (Negative); *BARBITURATES SCREEN URINE Negative (Negative); *BENZODIAZEPINES SCREEN URINE Negative (Negative); Cannabinoids THC Negative (Negative); Cocaine Screen,Urine Negative (Negative); METHADONE URINE SCREEN Negative (Negative); OPIATES URINE SCREEN Negative (Negative)
[2023-02-21 16:20] LABS: Tricyclic Antidepressants Negative (Negative)
[2023-02-26 00:25] LABS: Buprenorphine Negative ng/mL (Cutoff: 5.0); Norbuprenorphine Negative ng/mL (Cutoff: 2.5)
== END 2023-02-21 14:19 | disposition home or self-care (01) ==
LOC: LBN 14:18
PROVIDERS: PCP Nurse Practitioner Family; Visit Provider Obstetrics & Gynecology Gynecology
DX: Z34.93 Encounter for supervision of normal pregnancy, unspecified, third trimester (principal); Z3A.36 36 weeks gestation of pregnancy; Z36.85 Encounter for antenatal screening for Streptococcus B
CPT/HCPCS: 80307; 80348; 87081

== ENCOUNTER 2023-02-25 18:31 | Outpatient (CLI) | payer MEDICAID, SELFPAY ==
[2023-02-25 19:02] VITALS: BP 121/64; PULSE 110; RESP 19; TEMP 36.6; O2SAT 97
[2023-02-25 19:20] VITALS: BP 121/64; PULSE 110; RESP 18; TEMP 36.6
[2023-02-25 19:21] VITALS: BP 121/64; PULSE 108; TEMP 208.2; TEMP 97.9
--- NOTE | 2023-02-25 21:41 | W.OBNST ---
Date of service: 02/25/23 Time of Service: 20:00 NST Evaluation Reason for NST Reasons for Nonstress Test: OTHER, SEE COMMENT Gestational Age Gestational Age in Weeks and Days: 36 Weeks and 6Days Test and Monitor Explained Test/Monitor Explained: Test Explained, Monitor Explained and Patient Verbalized Understanding Vital Signs Blood Pressure: 121/64 Pulse: 108 Temperature: 208.2 F Urine Results Urine Protein: Negative Urine Ketones: Positive Urine Glucose: Negative Urine Blood: Negative NST Information Date on Monitor: 02/25/23 Time on Monitor: 19:02 Date off Monitor: 02/25/23 Time off Monitor: 19:25 Total Time on Monitor: 23 NST Interventions: PO Hydration and Meal Given Contraction Frequency: 1-4 NST Evaluation Patient States Movement: Present Variability: Moderate 6-25 bpm Accelerations: 15x15 NST Results: Reactive Note Ultrasound Done: N/A. NST Note Note: Pt observed over 2hrs. Cervical exam 2/50/-2 and changed slightly to 2.5cm. She chose to go home rather than stay and be monitored longer. She understands to call and return quickly if change in her contractions or breaks her water. NST Reviewed and Verified by: Paula Jorgensen
[2023-02-25 21:43] VITALS: BP 121/64; PULSE 108; TEMP 208.2; TEMP 97.9
== END 2023-02-25 18:38 | DRG 833 ==
LOC: BCD 18:35
PROVIDERS: PCP Nurse Practitioner Family; Visit Provider Obstetrics & Gynecology
DX: O47.03 False labor before 37 completed weeks of gestation, third trimester (principal); Z3A.36 36 weeks gestation of pregnancy
CPT/HCPCS: 59025

== ENCOUNTER 2023-02-26 14:27 | Inpatient (IN) | payer MEDICAID, SELFPAY ==
[2023-02-26] VITALS (12 sets, daily range): BP systolic 101–130; BP diastolic 56–88; PULSE 82–100; RESP 17–18; TEMP 36.6–37.1
--- NOTE | 2023-02-26 15:04 | W.PM.HP.N ---
Date of service: 02/26/23 Time of Service: 15:04 Assessment and Plan Assessment and plan (1) Normal vaginal delivery: Status: Acute Assessment and plan: Precipitous delivery - see note History of Present Illness Narrative: Pt arrived fully dilated and delivery 20min later. See delivery note for details. ON LICENSE OF [facility] All Active Problems (Updated 02/26/23 @ 15:12 by Paula Jorgensen MD) Normal vaginal delivery (Acute) Atypical glandular cells, favor neoplasia on cervical Pap smear (Acute) pap in 2019 when - no f/u until repeat pap Sep 2022: ASC-H/HPV+ Benign colp during . Repeat colp 6wks pp GERD (gastroesophageal reflux disease) (Chronic) Medical History (Updated 02/26/23 @ 15:12 by Paula Jorgensen MD) COVID-19 Vaginal delivery 02/26/2021. F. 2955gm. 05/17. Paisyn Surgical History H/O dilation and curettage 09/2017 for SAB at 10 weeks estimated gestational age. [facility]. History of cholecystectomy 2019 done in [place] Family History Grandmother No problems noted. 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 Date GA/Weeks # Preg Succ Route Wgt Sex Labor Lgth Anesthesia Location Prov [facility] 10/09/14 41 No vaginal 6 lb 15 oz Female 9 hrs [facility] 10/10/[address] Holland required D&C 11/29/18 39 No vaginal 7 lb 1.1 oz Female 5 [place] 02/27/21 40 No vaginal 6 lb 8 oz Female 1 hour 5 hours of marcum bulb [place] Delivery Date: 10/09/14 Last Updated by: Neva BAÑUELOS daughter named Perla 2014, IOL for post dates. Delivery Date: 11/29/18 Last Updated by: AMELIA Brenner [facility] Delivery Date: 02/27/21 Last Updated by: Sydnee Allen CNM marcum bulb induction, Paisyn Meds Allergies and Home Medications Allergies Allergy/AdvReac Type Severity Reaction Status Date / Time codeine Allergy Severe Swelling/Ed Verified 02/21/23 12:59 rahul Home Medications Medication Instructions Recorded Confirmed Type prenat.vits,susan,[id number] 1 tab PO DAILY 07/15/22 02/21/23 History esomeprazole magnesium 40 mg 40 mg PO DAILY #30 caps 02/15/23 02/21/23 Rx capsule,delayed release (Nexium) Results Labs 02/26/23 14:27 Last Vital Signs Pulse 99 H 02/26/23 15:03 BP 106/63 02/26/23 15:03 Time Spent Time spent with Patient: <40 minutes Time was spent: preparing to see the patient(eg.review tests), obtaining and/or reviewing separately otained hiistory, referring, communicating with other health director critical care and counseling the patient
--- NOTE | 2023-02-26 15:14 | W.OBDELIVERY ---
Date of service: 02/26/23 Time of Service: 14:30 OB Labor/ Delivery Information Baby A Delivery Delivery Method: Spontaneaous Presentation: Vertex Cord Description-Baby A: 3 Vessels Amniotic Fluid: [place] Tinged Estimated Blood Loss: 150 Delivery Outcome: Liveborn Providers Doctor: Paula Jorgensen Nurse: Lisa Robbins Nurse: Monse Domingo Other: Josephine Mendenhall Labor/Delivery Information Number of Babies in Womb: 1 Steroids Given: None Reason Steroids Not Administered: N/A Group Beta Strep: Negative Antibiotics Administered: No Blood Type: AB- Shoulder Dystocia: No Note: The pt was found to be fully dilated on arrival and was pushing involuntarily. She pushed 20mins to deliver the infant's head in ANNIE position with a compound right hand that was delivered followed by the shoulders and the rest of the body. The baby was placed on mom's abdomen. After >1min the cord was clamped x2 and cut. Cord blood collected. The placenta delivered with gentle cord traction and fundal massage and appeared intact. Fundus was firm with good hemostasis. Mom and baby stable at time of note. Stages of Labor Onset of Labor Date: 02/26/23 Complete Dilatation Date: 02/26/23 Complete Dilatation Time: 14:20 ROM Baby A: 02/26/23 ROM Baby A: 14:23 ROM Total Time- Baby A: [id number] Infant Delivery Date-Baby A: 02/26/23 Delivery Time-Baby A: 14:42 Labor Stage 2 Duration: 22 minutes Placenta Delivery Date-Baby A: 02/26/23 Placenta Delivery Time-Baby A: 14:46 Labor-Stage 3 Duration: 4 minutes Placenta Status: Delivered Baby A Infant Gender: Female Gestational Status: Early Term (37-38.6 wks) Gestational Age in Weeks/Days: 37 Weeks and 0 Days Score-1 Minute Interval(Baby A) Heart Rate-1 minute: 100 BPM or Greater Respiratory Effort- 1 minute: Spontaneous/Strong Cry Muscle Tone-1 minute: Active Movement Reflex Response-1 minute: Prompt Response Color-1 minute: Bluish Hands or Feet Total Score-1 minute: 9 Score-5 Minute Interval(Baby A) Heart Rate- 5 minute: 100 BPM or Greater Respiratory Effort-5 minute: Spontaneous/Strong Cry Muscle Tone-5 minute: Active Movement Reflex Response-5 minute: Prompt Response Color-5 minute: Bluish Hands or Feet Total Score- 5 minute: 9
[2023-02-26] MEDS: Oxytocin 10 UNITS/ML VIAL IM (15:55)
[2023-02-26] MEDS: Dibucaine 1% 28 GM TUBE TP (17:08)
[2023-02-26] MEDS: Hamamelis Leaf/Glycerin 100 EACH BOX PR (17:09)
[2023-02-27] VITALS: BP 97/58; PULSE 77; RESP 18; TEMP 36.5
[2023-02-27] MEDS: Acetaminophen 325 MG TAB 650 MG PO (04:32)
[2023-02-27 05:14] VITALS: BP 102/67; PULSE 77; RESP 18; TEMP 36.6
[2023-02-27 08:30] VITALS: BP 110/73; PULSE 80; RESP 14; TEMP 36.4
--- NOTE | 2023-02-27 09:33 | W.PM.OBPNV1 ---
Date of service: 02/27/23 Time of Service: 09:33 Assessment and Plan Assessment and plan (1) Spontaneous vaginal delivery: Status: Acute Assessment and plan: 02/26/2023. breast-feeding successfully. Plan is to discharge the mother and today if cleared by pediatrics. Exam Physical Exam Vital signs: Temp Pulse Resp BP 97.5 F L 80 14 110/73 02/27/23 08:30 02/27/23 08:30 02/27/23 08:30 02/27/23 08:30 Vital Signs Reviewed: Yes Narrative: PPD1 . Female infant. Unremarkable PP course. Successfully Constitutional Constitutional: no acute distress HEENT Exam HEENT Exam: Normal Neck Exam Neck Exam: Normal Respiratory Exam Respiratory Exam: Normal Cardiovascular Exam Cardiovascular Exam: Normal Abdominal Exam Abdomen: Diastasis Fundal Exam Comment: Fundus firm. U/2. Non-tender. Rectal Exam Rectal Exam: Not Done Extremities Exam Extremity Exam: Normal and Edema (1+ non pitting pretibial edema) Skin Exam Skin Exam: Normal Neurological Exam Neurological Exam: Normal Psychiatric Exam Psychiatric Exam: Normal Results Hemoglobin/Hematocrit: Hgb Cancelled 02/26/23 14:27 Hct Cancelled 02/26/23 14:27
--- NOTE | 2023-02-27 14:18 | W.PM.OBDISCH ---
Date of service: 02/27/23 Time of Service: 14:22 DS: Diagnosis Discharge Diagnosis (1) Spontaneous vaginal delivery: Status: Acute Discharge Plan Disposition Patient Disposition: Home Condition: Good Discharge Details Reason For Visit: Term labor Admit Date/Time: 02/26/23 14:27 Admit Provider: Paula Jorgensen Attending Provider: Paula Jorgensen Primary Care Provider: Flores Cabrera Hospital Course Hospital Course: Precipitous vaginal delivery upon arrival to the hospital. Viable female infant will be named Tej. She was discharged home on day 1 successfully breast-feeding. Pain was controlled with Tylenol. She will follow-up in the office in 2 weeks to assess mood and breast-feeding progress. Home Meds and New Rx's Prescriptions: No Action prenat.vits,susan,[id number]-tjbo-kusdt Tablet 1 tab PO DAILY esomeprazole magnesium [Nexium] 40 mg capsule,delayed release(DR/EC) 40 mg PO DAILY Qty: 30 2RF Discharge Instructions Additional Instructions: [facility] Forms: Instructions, Post Vaginal Deliver Activity:: Activity as Tolerated Equipment/Supplies:: No Equipment Needed Diet:: As Tolerated OB:DS Summary Summary Vaginal Delivery Method: Spontaneaous Episiotomy Description: None Procedures: will be named Tej Contraception Discussed Contraception Discussed: Yes Contraceptive Plan: Levonorgestrel Implant, Gender-Baby A: Female weight: 6 lb 2.062 oz Status at Discharge Functional status at discharge: independent ambulation Overall status at discharge: patient is progressing back to baseline Mental Status: mental status grossly normal Speech and Movement: speech and movement normal Mood: congruent mood Affect: normal affect Exam Physical Exam Vital signs: Temp Pulse Resp BP 97.5 F L 80 14 110/73 02/27/23 08:30 02/27/23 08:30 02/27/23 08:30 02/27/23 08:30 Vital Signs Reviewed: Yes Constitutional Constitutional: no acute distress HEENT Exam HEENT Exam: Normal Respiratory Exam Respiratory Exam: Normal Cardiovascular Exam Cardiovascular Exam: Normal Abdominal Exam Comments: Nontender Fundal Exam Fundus: Below Umbilicus and Firm Rectal Exam Rectal Exam: Not Done Extremities Exam Extremity Exam: Normal Back/Spine/Pelvis Exam Back Exam: Normal Skin Exam Skin Exam: Normal Neurological Exam Neurological Exam: Normal Psychiatric Exam Psychiatric Exam: Normal PFSH All Active Problems (Updated 02/27/23 @ 09:40 by Corazon Holland MD) Spontaneous vaginal delivery (Acute) Atypical glandular cells, favor neoplasia on cervical Pap smear (Acute) pap in 2019 when - no f/u until repeat pap Sep 2022: ASC-H/HPV+ Benign colp during . Repeat colp 6wks pp GERD (gastroesophageal reflux disease) (Chronic) Normal vaginal delivery (Acute) Medical History (Updated 02/27/23 @ 09:40 by Corazon Holland MD) COVID-19 Vaginal delivery 02/26/2021. F. 2955gm. 05/17. Paisyn Surgical History H/O dilation and curettage 09/2017 for SAB at 10 weeks estimated gestational age. [facility]. History of cholecystectomy 2019 done in [place] Family History Grandmother No problems noted. 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 Date GA/Weeks # Preg Succ Route Wgt Sex Labor Lgth Anesthesia Location [facility] 10/09/14 41 No vaginal 6 lb 15 oz Female 9 hrs [facility] 10/10/[address] Holland required D&C 11/29/18 39 No vaginal 7 lb 1.1 oz Female 5 Anea Lelong 02/27/21 40 No vaginal 6 lb 8 oz Female 1 hour 5 hours of marcum bulb [place] Delivery Date: 10/09/14 Last Updated by: Neva Kaiser daughter named Perla 2014, IOL for post dates. Delivery Date: 11/29/18 Last Updated by: Sydnee Allen CNM NVHumberto Wileigh Delivery Date: 02/27/21 Last Updated by: Sydnee Allen CNM marcum bulb induction, Paisyn DS: Data Vitals/I&O Vitals and I&O: Vital Signs Temperature 97.5 F L 02/27/23 08:30 Temperature Source Oral 02/27/23 08:30 Pulse 80 02/27/23 08:30 Pulse Rhythm Regular 02/26/23 19:45 Respiratory Rate 14 02/27/23 08:30 Respiratory Depth Normal 02/26/23 15:53 Blood Pressure 110/73 02/27/23 08:30 Blood Pressure Mean 85 02/27/23 08:30 Pain Level 9 02/27/23 04:32 Intake & Output 02/26/23 02/27/23 02/27/23 23:59 11:59 23:59 Output Total 100 / 100 400 / 400 Balance -100 / -100 -400 / -400 Weight 155 lb Output: Urine 100 / 100 400 / 400 Data Completed and Pending Labs on day of discharge: Labs from last 24 hours 02/26/23 02/26/23 14:27 14:27 WBC Cancelled RBC Cancelled Hgb Cancelled Hct Cancelled MCV Cancelled MCH Cancelled MCHC Cancelled RDW Cancelled Plt Count Cancelled MPV Cancelled Patient ABO/Rh Cancelled
== END 2023-02-27 16:00 | disposition home or self-care (01) | DRG 807 ==
LOC: OBS 02-27 07:28 → BCD 02-27 11:14
PROVIDERS: Admitting Provider Obstetrics & Gynecology; PCP Nurse Practitioner Family; Visit Provider Obstetrics & Gynecology
DX: O99.62 Diseases of the digestive system complicating childbirth (principal); Z37.0 Single live birth; O62.3 Precipitate labor; Z3A.37 37 weeks gestation of pregnancy; K21.9 Gastro-esophageal reflux disease without esophagitis
CPT/HCPCS: 85027; 86900; 86901; 59025; J2590

== ENCOUNTER 2023-04-13 09:48 | Outpatient (REF) | payer MEDICAID, SELFPAY ==
--- NOTE | 2023-04-13 09:15 | ENDO_PTH ---
PATIENT: Evita Garcia LOC: [facility] U#:[id number] AGE/SX: 27/F ROOM: RE04/13/[address]: Lashawn Rebolledo DO : 1995 BED: DIS: 04/13/2023 SPEC #: [id number] RECD: 04/13/23 12:55 STATUS: RAYMUNDO RE #: [id number] MICHELLE: 04/13/23 09:[address]: Lashawn Rebolledo DEPT: Surgical Specimen RECD BY: Li Phoenix ENTERED: 04/13/23 12:56 SP TYPE: Endo OTHR DR: Flores Cabrera Tissues: 1 - ENDOCERVICAL BX/CURRETTE 2 - CERVICAL BIOPSY Procedures: GROSS AND MICRO LEVEL 4 Comments: [id number]
== END 2023-04-13 09:49 | disposition home or self-care (01) ==
LOC: LBN 09:48
PROVIDERS: PCP Nurse Practitioner Family; Visit Provider Obstetrics & Gynecology
DX: N88.8 Other specified noninflammatory disorders of cervix uteri (principal); R87.618 Other abnormal cytological findings on specimens from cervix uteri
CPT/HCPCS: 88305

== ENCOUNTER 2023-11-24 08:39 | Emergency (ER) | payer MEDICAID, SELFPAY ==
[2023-11-24] VITALS (14 sets, daily range): BP systolic 93–107; BP diastolic 53–67; PULSE 88–123; RESP 14–27; TEMP 36.6–36.8; O2SAT 96–99
--- NOTE | 2023-11-24 08:45 | RT.EKG_ITS ---
APPROVED REPORT Exam: Resting ECG Reason for Exam: tachycardia Patient Location: E HR:104 bpm ECG Measurements Heart Rate 104 AXIS IL 146 P 77 QRSd 74 QRS 57 QT 311 T 12 QTc 408 Conclusion Sinus tachycardia...rate> 99
--- NOTE | 2023-11-24 09:00 | DI.RAD_ITS ---
Exam(s) XR CHEST 2V PA LATERAL EXAM: XR CHEST 2V PA LATERAL CLINICAL HISTORY: chest pain TECHNIQUE: 2D digital imaging was performed. COMPARISON: CR XR CHEST 2V PA LATERAL from 07/16/2020 FINDINGS: HEART: Normal size. Aorta: Not dilated. PULMONARY VASCULATURE: Normal. LUNGS: Clear. PLEURAL SPACE: No pleural effusion or pneumothorax. BONE:Unremarkable for age. Soft tissues: Unremarkable. IMPRESSION: No acute abnormality. DATA REPOSITORY: RADIATION DOSE DELIVERED:
--- NOTE | 2023-11-24 09:14 | W.ED.GENAD ---
HPI General Mode of arrival: ambulatory. Date/Time Provider Initiated Documentation: 11/24/23 08:39. Limitations to Documentation: no limitations. Information obtained by: patient. History of Present Illness 28 year old F presents to the emergency department with the chief complaint of n/v, Patient started experiencing this hour(s) (3) and it has been intermittent. No relieving factors improve symptom(s), No exacerbating factors reported . Patient notes chest pain and cough; denies shortness of breath. Patient did receive the following treatments prior to arrival, none Related Data Home Medications Medication Instructions Recorded Confirmed prenat.vits,susan,jod-ybdu-kdouw 1 tab PO DAILY 07/15/22 05/15/23 ondansetron 4 mg disintegrating 4 mg PO Q8H PRN nausea and 11/24/23 tablet vomiting #30 tabs Previous Rx's Medication Instructions Recorded ondansetron 4 mg disintegrating 4 mg PO Q8H PRN nausea and 11/24/23 tablet vomiting #30 tabs Allergies Allergy/AdvReac Type Severity Reaction Status Date / Time codeine Allergy Severe Swelling/Ed Verified 05/15/23 09:06 rahul General Stated Complaint: Nausea/Vomit/Diar SELVIN: 3 Review of Systems All systems reviewed & are unremarkable except as noted in HPI and below Constitutional Constitutional: Denies chills, Denies fever(s) and Denies weakness ENT Ears, Nose, Mouth, and Throat: Denies change in voice Cardiovascular Cardiovascular: Reports chest pain and Denies dyspnea Respiratory Respiratory: Reports cough and Denies dyspnea Gastrointestinal Gastrointestinal: Reports abdominal pain, Reports nausea and Reports vomiting Genitourinary Genitourinary: Denies dysuria Integumentary/Breasts Skin/Breast: Denies rash Neurologic Neurologic: Denies weakness Exam Const General: no acute distress Orientation: alert [facility] Head: normal to inspection Ears: external ears normal General nose exam: external nose normal Mouth: moist mucous membranes Eyes General: appearance normal, both eyes and all related structures Neck Neck: normal visual inspection Resp Effort & Inspection: normal respiratory effort and able to speak in complete sentences Auscultation: clear to auscultation bilaterally Cardio Rate: regular rate Heart Sounds: no murmurs GI Palpation: soft and nontender Skin General skin exam: no rashes or lesions noted Neuro General: patient alert and patient oriented x3 Extrem General: normal to inspection Psych Mental Status: mental status grossly normal Course Vital Signs Vital signs: Vital Signs Temperature 36.8 C 11/24/23 08:46 Pulse 114 H 11/24/23 08:46 Respiratory Rate 18 11/24/23 08:46 Blood Pressure 106/56 L 11/24/23 08:46 Pulse Oximetry 99 11/24/23 08:46 Temperature 36.8 C 11/24/23 08:46 Temperature Source Skin 11/24/23 08:46 Pulse 114 H 11/24/23 08:46 Respiratory Rate 18 11/24/23 08:46 Blood Pressure 106/56 L 11/24/23 08:46 Blood Pressure Position Sitting 11/24/23 08:46 Pulse Oximetry 99 11/24/23 08:46 Oxygen Delivery Method Room Air 11/24/23 08:46 Oxygen Flow Rate 0 11/24/23 08:46 Pain Level 7 11/24/23 08:46 Comment my whole abd and then going to my back 11/24/23 08:46 Medical Decision Making 28-year-old female with no significant chronic medical problems, has had a prior cholecystectomy, who comes in with 3 hours of intermittent nausea vomiting and epigastric and chest discomfort. She says the last few days she has had cold-like symptoms with a dry cough and runny nose. She states at 530 she was waking up when she had the onset of nausea a bandlike pain around her chest after throwing up, and epigastric discomfort. Denies any fevers, difficulty breathing. She is alert and oriented x 4 on arrival in no distress though is tachycardic in the low 110-1 20 range in sinus. She has clear lungs no murmurs, no JVD, no leg swelling or calf tenderness, abdomen is soft and nontender. Suspect gastroenteritis, will administer IV fluids, Zofran and Toradol, and obtain EKG and troponin, D-dimer given her tachycardia, CBC CMP and lipase. Given her cough will obtain chest x-ray as well. No tearing back pain and equal peripheral pulses bilaterally so doubt dissection. Given lack of abdominal tenderness doubt surgical pathology such as small bowel obstruction Patient states she feels significantly better after Zofran and Toradol, has no abdominal tenderness on repeat exam at denies any chest pain. D-dimer and troponin negative and given over 3 hours of symptoms do not feel delta troponin indicated. Her LFTs and white count are elevated, looking back in the past looks like she has these elevated pretty frequently. Discussed with her and she says she is already seen her PCP for this and had negative workup as an outpatient. Given she is already under gallbladder out, has a normal bilirubin, and has no abdominal tenderness in the right upper quadrant at all do not feel any acute imaging indicated. Suspect she has a viral illness which could be causing some elevation in her LFTs and white count. She is stable for discharge, advised to follow-up with her primary care in a week if she is no better, return precautions given Differential Diagnosis Differential Diagnosis: Gastroenteritis, myocarditis, viral illness Medical Records Medical records reviewed: Yes I reviewed the patient's medical records. Imaging Data Radiologic Study: Attestation: I personally reviewed and interpreted this imaging study as follows: Imaging: X-Ray My impression: No acute findings Lab Data Lab results reviewed: Yes I reviewed the patient's lab results. ECG Data Attestation: I personally reviewed and interpreted this ECG (s) as follows: Prior ECG tracings: not available for review Interpretation: Sinus tachycardia rate of 104, NM 146, no STEMI Quality:SDOH Health Related Social Needs: No Data to Display PFSH All Active Problems (Updated 11/24/23 @ 10:44 by Jesse Montaño MD) Chest pain (Acute) Nausea & vomiting (Acute) Medical History (Updated 11/24/23 @ 10:44 by Jesse Montaño MD) GERD (gastroesophageal reflux disease) Atypical glandular cells, favor neoplasia on cervical Pap smear pap in 2019 when - no f/u until repeat pap Sep 2022: ASC-H/HPV+ Benign colp during . Colpo 04/30-ECC and biopsy benign COVID-19 Vaginal delivery 02/26/2021. F. 2955gm. 8/9. Paisyn Surgical History History of cholecystectomy 2019 done in [place] H/O dilation and curettage 09/2017 for SAB at 10 weeks estimated gestational age. [facility]. Family History Grandmother No problems noted. 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 Date GA/Weeks # Preg Succ Route Wgt Sex Labor Lgth Anesthesia Location [facility] 10/09/14 41 No vaginal 3146.797 g Female 9 hrs [facility] 10/10/[address] Holland required D&C 11/29/18 39 No vaginal 3206.331 g Female 5 Anea Lelong 02/27/21 40 No vaginal 2948.35 g Female 1 hour 5 hours of marcum bulb [place] 02/26/23 37 No Yes vaginal 2778.253 g Female Abbie Jorgensen MD Delivery Date: 10/09/14 Last Updated by: Neva BAÑUELOS daughter named Perla 2014, IOL for post dates. Delivery Date: 11/29/18 Last Updated by: Sydnee Allen CNM NVD Wileigh Delivery Date: 02/27/21 Last Updated by: Sydnee Allen CNM marcum bulb induction, Paisyn Delivery Date: 02/26/23 Last Updated by: Ines Burnham Discharge Plan Disposition Patient Disposition: Home Condition: Stable Discharge Details Clinical Impression: Nausea & vomiting, Chest pain Primary Care Provider: Flores Cabrera ED Provider: Jesse Montaño Home Meds and New Rx's Prescriptions: New ondansetron 4 mg tablet,disintegrating 4 mg PO Q8H PRN (Reason: nausea and vomiting) Qty: 30 0RF Continued prenat.vits,susan,[id number]-offe-[id number] Tablet 1 tab PO DAILY Discharge Instructions Instructions: Acute Nausea and Vomiting (ED) Additional Instructions: Your lab work showed continued elevation of your liver function test similar to prior lab draws. You are likely suffering from a viral illness so we will resolve in a few days If you feel more ill, have severe worsening pain, or persistent vomiting despite the medication prescribed return to the emergency department for evaluation
[2023-11-24 09:25] LABS: Abs Immature Grans 0.06 10^3/uL (0.0-0.06); Absolute Neutrophil Count 13.91 10^3/uL (1.2-6.7); Basophils % 0.4; Eosinophils % 0.2; HCT 45.3 % (36.0-46.0); HGB 14.6 g/dL (11.2-15.7); Immature Grans % 0.4; Lymphocytes % 3.5; MCH 28.1 pg (27.0-33.0); MCHC 32.2 % (32.0-36.0); MCV 87 fL (80-95); MPV 8.3 fL (8.0-11.0); Monocytes % 10.4; Neutrophils % 85.1; Platelet Count 333 10^3/uL (130-400); RDW 13.2 % (11.7-14.6); RDW-SD 42.2 fL; WBC 16.35 10^3/uL (4.4-10.8)
[2023-11-24 09:28] LABS: Absolute Basophil Count 0.07 10^3/uL (0.0-0.2); Absolute Eosinophil Count 0.03 10^3/uL (0.0-0.7); Absolute Lymphocyte Count 0.57 10^3/uL (1.2-3.4)
[2023-11-24] MEDS: Ondansetron 4 MG/2 ML VIAL IVP (09:32)
[2023-11-24] MEDS: Ketorolac 15 MG/ML VIAL IVP (09:33)
[2023-11-24] MEDS: Normal Saline 1,000 ML 1000 ML IV (09:38)
[2023-11-24 09:40] LABS: Diff Comment Diff Reviewed; RBC Morphology Normal
[2023-11-24 09:45] LABS: ALT 144 U/L (14-59); AST 265 U/L (15-37); Albumin 4.1 g/dL (3.4-5.0); Alkaline Phosphatase 149 U/L (46-116); BUN 18 mg/dL (7-18); CREATININE 0.8 mg/dL (0.55-1.02); Calcium 8.9 mg/dL (8.5-10.1); Chloride 103 mmol/L (98-107); Estimated GFR 101.59 (mL/min/1.73m2); Glucose 103 mg/dL (74-106); Lipase 20 U/L (16-77); Magnesium 1.9 mg/dL (1.8-2.4); Sodium 139 mmol/L (136-145); Total Protein 8.1 g/dL (6.4-8.2)
[2023-11-24 09:54] LABS: HCG Qual (Serum) Negative
[2023-11-24 10:16] LABS: D-Dimer 340 ng/mlFEU (<500)
[2023-11-24 10:20] LABS: Bilirubin Small (Negative); Blood Negative (Negative); Clarity Clear (Clear); Glucose Negative (Negative); Ketones 15 mg/dL (Negative); Leukocyte Esterase Small (Negative); Nitrite Negative (Negative); Specific Gravity >= 1.030 (1.005-1.025); Urobilinogen 0.2 mg/dL (Up to 0.2); pH 5.5 (5-8)
[2023-11-24 10:21] LABS: Troponin I < 50 ng/L (< or =60)
[2023-11-24 10:26] LABS: COVID-19 PCR Negative (Negative); Influenza A PCR Negative (Negative); Influenza B PCR Negative (Negative); RSV PCR Negative (Negative)
[2023-11-24 10:28] LABS: Source Nasopharynx
[2023-11-24 10:53] LABS: Epithelial Cells Many HPF (Negative); Other Cells Rare Transitional (Negative); RBC 0-2 HPF (0-2)
[2023-11-24 10:54] LABS: Bacteria Moderate HPF (Negative); C & S Indicated? No/Sq. Contamination; Casts Negative LPF (Negative); Crystals Negative HPF (Negative); Mucus Heavy (Negative)
[2023-11-24 18:16] LABS: Hepatitis A Antibody IgM Negative (Negative); Hepatitis B Core Antibody Negative (Negative); Hepatitis B surface Ag Negative (Negative); Hepatitis C Ab w Rflx HCV PCR Negative (Negative)
== END 2023-11-24 11:06 | disposition home or self-care (01) ==
LOC: ER 11:41
PROVIDERS: Emergency Provider Emergency Medicine; PCP Nurse Practitioner Family
DX: R11.2 Nausea with vomiting, unspecified (principal); R19.7 Diarrhea, unspecified; R07.9 Chest pain, unspecified; R00.0 Tachycardia, unspecified; F17.210 Nicotine dependence, cigarettes, uncomplicated; Z11.52 Encounter for screening for COVID-19; Z90.49 Acquired absence of other specified parts of digestive tract
CPT/HCPCS: 36415; 80053; 81025; 83690; 86704; 86709; 86803; 87340; 87637; 93005; 96361; 96374; 96375; 99285; 71046; 81003; 81015; 83735; 84484; 84703; 85025; 85379; 93010; 99284; J1885; J2405

== ENCOUNTER 2025-06-17 17:52 | Outpatient (REF) | payer MEDICAID, SELFPAY ==
--- NOTE | 2025-06-17 16:10 | PAPFT_PTH ---
PATIENT: Evita Garcia LOC: [facility]#:[id number] AGE/SX: 29/F ROOM: RE06/17/[address]: Lashawn Rebolledo DO : 1995 BED: DIS: 06/17/2025 SPEC #: [id number] RECD: 06/17/25 17:58 STATUS: RAYMUNDO REQ #: [id number] MICHELLE: 06/17/25 16:[address]: Lashawn Rebolledo DEPT: [facility] Cytology RECD BY: Li Phoenix ENTERED: 06/17/25 17:58 SP TYPE: PAPFT OTHR DR: Flores Cabrera Tissues: 1 - CX/ENDOCX FOR PAP SMEARS Procedures: PAP THIN PREP/[facility] Screening HPV DNA PROBE Comments: [id number] (HPV 16 & 18/45)
== END 2025-06-17 17:53 | disposition home or self-care (01) ==
LOC: NCHCN 17:52
PROVIDERS: PCP Nurse Practitioner Family; Visit Provider Obstetrics & Gynecology
DX: Z12.4 Encounter for screening for malignant neoplasm of cervix (principal)
CPT/HCPCS: 88142; 87624